=== PATIENT | female | born 1970 | race Caucasian/White ===

== ENCOUNTER 2016-07-03 11:28 | Emergency (ER) | payer OTHER ==
[~2016-07-03] VITALS: Ht 165.1 cm; Wt 77.0 kg
[~2016-07-03 11:28] MED LIST: CLON-352 PO; CLON0.1D TD; DOXE10 PO; GEMF600 PO; HYDR12.56 PO; IBUP800T23 PO; RANI150 PO; XANA2TAB2 PO
[2016-07-03 11:34] VITALS: BP 142/87; PULSE 133; RESP 17; TEMP 98.3; O2SAT 99
--- NOTE | 2016-07-03 11:39 | PD ---
Physical Exam Date Seen by Provider: Jul 03, 2016 Time Seen by Provider: 11:37 Narrative Patient here with Hx Anxiety, who is here with worries of having a seizure for the past few days. No Fever or other acute symptoms. V/S Stable Patient awaiting med bed placement. Data Data Last Documented VS Vital Signs Date Time Temp Pulse Resp B/P Pulse Ox O2 Delivery O2 Flow Rate FiO2 07/03/16 11:34 98.3 133 17 142/87 99 MDM Medical Record Reviewed: Yes Supervised Visit with SIERRA: Yes Condition: Stable Tanner Khan Jul 03, 2016 11:39
[2016-07-03] MEDS ORDERED: CLON0.1T PO (12:53)
[2016-07-03] MEDS ORDERED: XANA2TAB2 PO (12:53)
[2016-07-03] MEDS ORDERED: DOXE50CA3 PO ×2 (12:53)
[2016-07-03] MEDS ORDERED: TYLE325T PO (12:53)
[2016-07-03] MEDS ORDERED: LORazepam 1 MG TAB PO ONE (13:00)
--- NOTE | 2016-07-03 13:40 | PD ---
HPI Chief Complaint: Anxiety Time Seen by Provider: 12:29 Travel History International Travel<30 days: No Contact w/Intl Traveler<30days: No Traveled to known affect area: No History of Present Illness HPI Patient 46-year-old female presents emergency department for vague complaints of "feeling funny in her head like she's can have a seizure". She denies any pain. She states that she just feels like she is going to have a seizure soon. She does have a history of anxiety and admits that. She states she's also been having some lower extremity numbness and tingling and has a history of peripheral neuropathy but has not been able to take her gabapentin either. She has not followed up with a primary care physician in some time. She denies any chest pain shortness of breath abdominal pain nausea vomiting diarrhea. Denies any visual disturbances or funny smell consistent with auras. She states the symptoms been going on for some time. Gradually worsening. PFSH Past Medical History Anxiety: Yes (PANIC ATTACKS) Depression: Yes High Cholesterol: Yes Diminished Hearing: No Psychiatric: Yes (PTSD) Reproductive: Yes (ENDOMETRIOSIS, fibroid tumors) Immunizations Current: Yes Migraines: Yes Seizures: Yes Ulcer: Yes (STOMACH ULCERS) ?: Not LMP: LAST MONTH : 2 Para: 1 Miscarriage: 1 : 0 Ovarian Cysts: Yes Past Surgical History Abdominal Aneurysm Repair: No Gynecologic Surgery: Yes (EXPLORATORY LAPAROSCOPY) Social History Alcohol Use: Yes (occ) Tobacco Use: Yes (1 to 1 03/07 ppd) Substance Use: No Allergies-Medications (Allergen,Severity, Reaction): Coded Allergies: Codeine (Verified Allergy, Severe, Anaphylaxis, 07/03/16) Iodine (Verified Allergy, Severe, Anaphylaxis, 07/03/16) Seroquel (Verified Allergy, Severe, Anaphylaxis, 07/03/16) Tramadol (Verified Allergy, Severe, Anaphylaxis, 07/03/16) Uncoded Allergies: SEROQUEL (Allergy, Severe, THROAT CLOSES, 03/26/11) Reported Meds & Prescriptions Reported Meds & Active Scripts Active Reported Tylenol (Acetaminophen) 325 Mg Tab 650 Mg PO Q4H PRN Xanax (Alprazolam) 2 Mg Tab 2 Mg PO BID Clonidine (Clonidine HCl) 0.1 Mg Tab 0.1 Mg PO BID Doxepin (Doxepin HCl) 50 Mg Cap 100 Mg PO HS Doxepin (Doxepin HCl) 50 Mg Cap 50 Mg PO DAILY IN THE AM Review of Systems Except as stated in HPI: all other systems reviewed are Neg Physical Exam Narrative GENERAL: Well-developed well-nourished no apparent distress rapid speech. SKIN: Focused skin assessment warm/dry. HEAD: Atraumatic. Normocephalic. EYES: Pupils equal and round. No scleral icterus. No injection or drainage. ENT: No nasal bleeding or discharge. Mucous membranes pink and moist. NECK: Trachea midline. No JVD. CARDIOVASCULAR: Regular rate and rhythm. No murmur appreciated. RESPIRATORY: No accessory muscle use. Clear to auscultation. Breath sounds equal bilaterally. GASTROINTESTINAL: Abdomen soft, non-tender, nondistended. Hepatic and splenic margins not palpable. MUSCULOSKELETAL: No obvious deformities. No clubbing. No cyanosis. No edema. NEUROLOGICAL: Awake and alert. Cranial nerves II through XII are grossly intact and nonfocal, 5 out of 5 strength in all 4 extremity's, cerebellar testing normal, and relates even narrow based gait. PSYCHIATRIC: Appropriate mood and affect; insight and judgment normal. Data Data Last Documented VS Vital Signs Date Time Temp Pulse Resp B/P Pulse Ox O2 Delivery O2 Flow Rate FiO2 07/03/16 11:34 98.3 133 17 142/87 99 Orders Lorazepam (Ativan) (07/03/16 13:00) [facility] Medical Decision Making Medical Screen Exam Complete: Yes Emergency Medical Condition: Yes Differential Diagnosis Anxiety reaction, history of seizure disorder, noncompliance. Narrative Course Patient was counseled very closely recommend she needs to follow up with multiple spiders. She was given Ativan 1 mg by mouth in emerged Department she is not driving. She has no indication for emergent workup at this time. She is stable for discharge. Diagnosis Primary Impression: Anxiety state Referrals: Cedric Reza MD, Neil R. MD [facility] Disposition: 01 DISCHARGE HOME Condition: Stable Ramesh Haynes MD Jul 03, 2016 13:40
== END 2016-07-03 14:41 | disposition home or self-care (01) ==
LOC: NEPD 11:28
DX: F41.1 Generalized anxiety disorder (principal); E78.00 Pure hypercholesterolemia, unspecified; F43.10 Post-traumatic stress disorder, unspecified; F17.210 Nicotine dependence, cigarettes, uncomplicated
CPT/HCPCS: 99283

== ENCOUNTER 2016-07-06 01:42 | Inpatient (IN) | payer OTHER ==
[2016-07-06] VITALS (30 sets, daily range): BP systolic 86–145; BP diastolic 52–83; PULSE 54–89; RESP 12–18; TEMP 97.2–99.3; O2SAT 94–100
[~2016-07-06] VITALS: Ht 165.1 cm; Wt 71.6 kg
[~2016-07-06 01:42] MED LIST changes: -CLON-352 PO; -CLON0.1D TD; +CLON0.1T PO; -DOXE10 PO; +DOXE50CA3 PO; -GEMF600 PO; -HYDR12.56 PO; -IBUP800T23 PO; -RANI150 PO; +TYLE325T PO
[2016-07-06] MEDS ORDERED: SODIUM CHLOR 0.9% 1000 ML INJ 1,000 ML IV ONE ×2 (01:54→02:00)
[2016-07-06] MEDS ORDERED: NALOXONE HCL 2 MG/2 ML VIAL IVP ONE (02:00)
[2016-07-06] MEDS ORDERED: SODIUM CHLORIDE 0.9% FLUSH 10 ML FLUSH IVF PRN (02:00)
[2016-07-06] MEDS ORDERED: ACTIVATED CHARCOAL LIQUID 25 GM/120 ML BTL PO/NG ONE (02:00)
[2016-07-06] MEDS ORDERED: SODIUM BICARBONATE 8.4% INJ 50 MEQ/50 ML SYR IV PUSH ONE ×2 (02:00→02:45)
[2016-07-06 02:17] LABS: AUTOMATED NEUTROPHIL # 14.9 TH/MM3 (1.8-7.7); BASOPHIL # 0.1 TH/MM3 (0-0.2); BASOPHIL % 0.8 % (0.0-2.0); EOSINOPHIL # 0.1 TH/MM3 (0-0.4); EOSINOPHIL % 0.3 % (0.0-4.0); HEMATOCRIT 35.5 % (35.0-46.0); HEMO FLAGS DIFF FINAL; LYMPHOCYTE # 1.8 TH/MM3 (1.0-4.8); MEAN CELL VOLUME 95.4 FL (80.0-100.0); MEAN CORPUSCULAR HEMOGLOBIN 32.1 PG (27.0-34.0); MEAN CORPUSCULAR HGB CONC 33.7 % (32.0-36.0); MONO % 5.3 % (0.0-8.0); NEUT % 83.6 % (16.0-70.0); PLATELET COUNT 220 TH/MM3 (150-450); RED BLOOD COUNT 3.72 MIL/MM3 (4.00-5.30); RED CELL DISTRIBUTION WIDTH 13.9 % (11.6-17.2); WHITE BLOOD COUNT 17.8 TH/MM3 (4.0-11.0)
[2016-07-06 02:19] LABS: BLOOD, URINE LARGE (NEG); GLUCOSE,URINE 1000 mg/dL (NEG); HYALINE CAST, URINE 4 /lpf (RARE); KETONE, URINE 10 mg/dL (NEG); MUCUS URINE FEW /lpf (OCC); NITRITE,URINE NEG (NEG); PH, URINE 5.5 (5.0-8.5); RENAL EPITHELIAL CELLS <1 /hpf; SQUAMOUS EPITHELIAL CELL URINE 3 /hpf (0-5); URINE COLOR YELLOW (YELLW/STRAW)
[2016-07-06 02:21] LABS: COMMENT (UR) CULT NOT INDICATED; CULTURE IF INDICATED CULT NOT INDICATED
[2016-07-06 02:23] LABS: AMPHETAMINE, URINE NEG (NEG); BARBITURATES, URINE NEG (NEG); COCAINE, URINE NEG (NEG)
[2016-07-06 02:24] LABS: APTT (PATIENT) 24.5 SEC (24.3-30.1); INTERNATIONAL NORMALIZED RATIO 1.1 RATIO
[2016-07-06 02:32] LABS: ANION GAP 13 MEQ/L (5-15); AST (GOT) 10 U/L (15-37); BICARBONATE 18.7 MEQ/L (21.0-32.0); BLOOD UREA NITROGEN 21 MG/DL (7-18); CHLORIDE 108 MEQ/L (98-107); GLOMERULAR FILTRATION RATE 49 ML/MIN (>89); MAGNESIUM 1.8 MG/DL (1.5-2.5); POTASSIUM 3.3 MEQ/L (3.5-5.1); SODIUM (NA) 140 MEQ/L (136-145)
[2016-07-06 02:36] LABS: ACETAMINOPHEN LESS THAN 2.0 MCG/ML (10.0-30.0); ALKALINE PHOSPHATASE 49 U/L (45-117); ALT (GPT) 19 U/L (10-53); CREATINE KINASE 235 U/L (26-192); TOTAL BILIRUBIN ADULT 0.3 MG/DL (0.2-1.0)
--- NOTE | 2016-07-06 02:37 | PD ---
HPI Chief Complaint: OD/ Ingestion Time Seen by Provider: 01:51 Travel History International Travel<30 days: No Contact w/Intl Traveler<30days: No Traveled to known affect area: No History of Present Illness HPI The patient is a 46 year old female who presents to the [facility] emergency department with a history of being found by her mother unresponsive prior to arrival. Mom immediately became concerned that she had overdosed as she has a history of depression and has overdosed in the past. Mom found empty bottles of doxepin, Xanax, and a clonidine. Unfortunately ambulance services did not bring the bottles and for me to be able to identify when the prescription was filled. On their arrival, the patient was noted to have a GCS of 3 although her vital signs were unremarkable. They reported that she was maintaining her O2 saturations, however in spite of giving Narcan IV she continued to have a GCS of 3. They prepared to intubate the patient. The patient reportedly had 2-10 second generalized chronic tonic seizures. The patient had clenching of her mouth. The patient was therefore provided etomidate 20 mg IV, Ativan 4 mg IV and then intubated with a size 7 cuffed endotracheal tube. The patient arrives intubated with a CO2 on capnography of 35. She had equal breath sounds noted on exam. The patient was placed on the cotton sampler. The rest of the patient's history is obtained from reviewing the electronic medical record. [facility] Past Medical History Narrative Medical The patient's past medical history is significant for according to the electronic medical record, panic attacks, anxiety disorder, depression, hyperlipidemia, posttraumatic stress disorder, endometriosis, history of fibroid tumors of the uterus, history of migraine headaches, history of peptic ulcer disease, history of seizure disorder. The record, the patient also has a history of prior suicide attempts. Medical History: Unable to Obtain Anxiety: Yes (PANIC ATTACKS) Depression: Yes High Cholesterol: Yes Diminished Hearing: No Psychiatric: Yes (PTSD) Reproductive: Yes (ENDOMETRIOSIS, fibroid tumors) Immunizations Current: Yes Migraines: Yes Seizures: Yes Ulcer: Yes (STOMACH ULCERS) Tetanus Vaccination: Unknown ?: Not : 2 Para: 1 Miscarriage: 1 : 0 Ovarian Cysts: Yes Past Surgical History Narrative Surgical The patient's past surgical history is significant for an exploratory laparoscopy for pelvic pain. Surgical History: Unable to Obtain Abdominal Aneurysm Repair: No Gynecologic Surgery: Yes (EXPLORATORY LAPAROSCOPY) Social History Alcohol Use: Yes (occ) Tobacco Use: Yes (1 to 1 03/07 ppd) Substance Use: No Allergies-Medications (Allergen,Severity, Reaction): Coded Allergies: Codeine (Verified Allergy, Severe, Anaphylaxis, 07/06/16) Iodine (Verified Allergy, Severe, Anaphylaxis, 07/06/16) Seroquel (Verified Allergy, Severe, Anaphylaxis, 07/06/16) Tramadol (Verified Allergy, Severe, Anaphylaxis, 07/06/16) Uncoded Allergies: SEROQUEL (Allergy, Severe, THROAT CLOSES, 03/26/11) Reported Meds & Prescriptions Reported Meds & Active Scripts Active Reported Xanax (Alprazolam) 2 Mg Tab 2 Mg PO BID Clonidine (Clonidine HCl) 0.1 Mg Tab 0.1 Mg PO BID Doxepin (Doxepin HCl) 50 Mg Cap 100 Mg PO HS Doxepin (Doxepin HCl) 50 Mg Cap 50 Mg PO DAILY IN THE AM Review of Systems ROS Limitations: Intubated Musculoskeletal: No: Pain Physical Exam Narrative General: The patient is a well-developed well-nourished female, on arrival noted to have a GCS of 3 with no response to any type of stimulation. Initial blood pressure was a systolic in the 70s. Head and Neck exam: Head is normocephalic atraumatic. Eyes: Extra ocular motion testing is unable to be accomplished in this patient who does not follow commands. Pupils are equal round and reactive to light. Nose: Midline septum with pink mucous membranes Mouth: Dentition unremarkable. Moist mucus membranes. Posterior oropharynx is not erythematous. No tonsillar hypertrophy. Uvula midline. Airway patent. Neck: No palpable lymphadenopathy. No nuchal rigidity. No thyromegaly. Cardiovascular: Regular rate and rhythm without murmurs, gallops, or rubs. Lungs: Clear to auscultation bilaterally. No wheezes, rhonchi, or rales. Abdomen: Soft, without tenderness to palpation in all 4 quadrants of the abdomen. No guarding, rebound, or rigidity. Normal bowel sounds are audible. Extremities: No clubbing, cyanosis, or edema. 2+ pulses in all 4 extremities. Back: No erythema or ecchymosis noted. Neurologic Exam: The patient arrives with a GCS of 3 without any motor activity, eye activity, or verbal response. Skin Exam: No rash noted. Intact skin that is warm and dry. Data Data Last Documented VS Vital Signs Date Time Temp Pulse Resp B/P Pulse Ox O2 Delivery O2 Flow Rate FiO2 07/06/16 02:44 99 40 07/06/16 02:10 81 16 86/52 Auto-Vent 07/06/16 02:10 99.3 Orders Electrocardiogram (07/06/16 01:54) Complete Blood Count With Diff (07/06/16 01:54) Comprehensive Metabolic Panel (07/06/16 01:54) Creatine Kinase (Cpk) (07/06/16 01:54) Ckmb (Isoenzyme) Profile (07/06/16 01:54) Troponin I (07/06/16:54) B-Type Natriuretic Peptide (07/06/16 01:54) Prothrombin Time / Inr (Pt) (07/06/16 01:54) Act Partial Throm Time (Ptt) (07/06/16 01:54) Arterial Blood Gas (Abg) (07/06/16 01:54) Lipase (07/06/16 01:54) Urinalysis - C+S If Indicated (07/06/16 01:54) Magnesium (Mg) (07/06/16 01:54) Osmolality, Urine (07/06/16 01:54) Osmolality,Serum (07/06/16 01:54) Chest, Single Ap (07/06/16 01:54) Ct Brain W/O Iv Contrast(Rout) (07/06/16 01:54) Iv Access Insert/Monitor (07/06/16 01:54) Ecg Monitoring (07/06/16 01:54) Oximetry (07/06/16 01:54) Urinary Catheter Insert/Apply (07/06/16 01:54) Ed Urine Pregnancytest Poc (07/06/16 01:54) Drug Screen, Random Urine (07/06/16 01:54) Alcohol (Ethanol) (07/06/16 01:54) Salicylates (Aspirin) (07/06/16 01:54) Tylenol (Acetaminophen) (07/06/16 01:54) Blood Glucose (07/06/16 01:54) Candi-Gastric Tube Insert/Mon (07/06/16 01:54) Charcoal Activated Liq (Actidose-Aqua Li (07/06/16 02:00) Naloxone Inj (Narcan Inj) (07/06/16 02:00) Sodium Chloride 0.9% Flush (Ns Flush) (07/06/16 02:00) Sodium Chlor 0.9% 1000 Ml Inj (Ns 1000 M (07/06/16 01:54) Call Poison Control (07/06/16 01:54) Sodium Chlor 0.9% 1000 Ml Inj (Ns 1000 M (07/06/16 02:00) Sodium Bicarbonate 8.4% Inj (Sodium Bica (07/06/16 02:00) Sodium Bicarbonate 8.4% Inj (Sodium Bica (07/06/16 02:45) Dextrose 5% In Wate... W/Sodium Bicarbon (07/06/16 02:45) CKMB (07/06/16 02:05) CKMB% (07/06/16 02:05) Admit Order (Ed Use Only) (07/06/16 03:07) Labs Laboratory Tests Test 07/06/16 07/06/16 02:05 02:28 White Blood Count 17.8 TH/MM3 Red Blood Count 3.72 MIL/MM3 Hemoglobin 11.9 GM/DL Hematocrit 35.5 % Mean Corpuscular Volume 95.4 FL Mean Corpuscular Hemoglobin 32.1 PG Mean Corpuscular Hemoglobin 33.7 % Concent Red Cell Distribution Width 13.9 % Platelet Count 220 TH/MM3 Mean Platelet Volume 10.3 FL Neutrophils (%) (Auto) 83.6 % Lymphocytes (%) (Auto) 10.0 % Monocytes (%) (Auto) 5.3 % Eosinophils (%) (Auto) 0.3 % Basophils (%) (Auto) 0.8 % Neutrophils # (Auto) 14.9 TH/MM3 Lymphocytes # (Auto) 1.8 TH/MM3 Monocytes # (Auto) 0.9 TH/MM3 Eosinophils # (Auto) 0.1 TH/MM3 Basophils # (Auto) 0.1 TH/MM3 CBC Comment DIFF FINAL Differential Comment Prothrombin Time 12.0 SEC Prothromb Time International 1.1 RATIO Ratio Activated Partial 24.5 SEC Thromboplast Time Urine Color YELLOW Urine Turbidity HAZY Urine pH 5.5 Urine Specific [place] 1.034 Urine Protein 100 mg/dL Urine Glucose (UA) 1000 mg/dL Urine Ketones 10 mg/dL Urine Occult Blood LARGE Urine Nitrite NEG Urine Bilirubin NEG Urine Urobilinogen 2.0 MG/DL Urine Leukocyte Esterase NEG Urine RBC 3 /hpf Urine WBC 5 /hpf Urine Squamous Epithelial 3 /hpf Cells Urine Renal Epithelial Cells <1 /hpf Urine Amorphous Sediment RARE Urine Hyaline Casts 4 /lpf Urine Mucus FEW /lpf Microscopic Urinalysis Comment CULT NOT INDICATED Urine Osmolality 1009 MOSM/KG Sodium Level 140 MEQ/L Potassium Level 3.3 MEQ/L Chloride Level 108 MEQ/L Carbon Dioxide Level 18.7 MEQ/L Anion Gap 13 MEQ/L Blood Urea Nitrogen 21 MG/DL Creatinine 1.18 MG/DL Estimat Glomerular Filtration 49 ML/MIN Rate Random Glucose 233 MG/DL Serum Osmolality 302 MOSM/KG Calcium Level 7.9 MG/DL Magnesium Level 1.8 MG/DL Total Bilirubin 0.3 MG/DL Aspartate Amino Transf 10 U/L (AST/SGOT) Alanine Aminotransferase 19 U/L (ALT/SGPT) Alkaline Phosphatase 49 U/L Total Creatine Kinase 235 U/L Creatine Kinase MB 4.1 NG/ML Creatine Kinase MB % 1.7 % Troponin I LESS THAN 0.02 NG/ML B-Type Natriuretic Peptide 6 PG/ML Total Protein 6.3 GM/DL Albumin 3.6 GM/DL Lipase 65 U/L Salicylates Level 5.3 MG/DL Urine Opiates Screen NEG Acetaminophen Level LESS THAN 2.0 MCG/ML Urine Barbiturates Screen NEG Urine Amphetamines Screen NEG Urine Benzodiazepines Screen POS Urine Cocaine Screen NEG Urine Cannabinoids Screen NEG Ethyl Alcohol Level LESS THAN 3 MG/DL Blood Gas Puncture Site RT RADIAL Blood Gas Patient Temperature 98.6 Blood Gas HCO3 20 mmol/L Blood Gas Base Excess -3.8 mmol/L Blood Gas Oxygen Saturation 96 % Arterial Blood pH 7.42 Arterial Blood Partial 32 mmHg Pressure CO2 Arterial Blood Partial 277 mmHG Pressure O2 Arterial Blood Oxygen Content 14.7 Vol % Arterial Blood 3.8 % Carboxyhemoglobin Arterial Blood Methemoglobin 0.4 % Blood Gas Hemoglobin 10.4 G/DL Oxygen Delivery Device VENTILATOR Blood Gas Ventilator Setting [id number]/500/[id number] Blood Gas Inspired Oxygen 100 % MDM Medical Decision Making Medical Screen Exam Complete: Yes Emergency Medical Condition: Yes Medical Record Reviewed: Yes Interpretation(s) Last Impressions Chest X-Ray 07/06/16 0154 Signed Impressions: Service Date/Time: Wednesday, July 06, 2016 02:27 - CONCLUSION: 1. Endotracheal tube in the left mainstem bronchus. This should be retracted 4 cm. Cedric Aguilera MD Differential Diagnosis Intentional overdose, versus accidental overdose, versus intracranial abnormality Narrative Course During the course of the patients emergency department visit, the patients history, examination, and differential diagnosis were reviewed with the patient. The patient had 2 large-bore IVs place and bilateral upper extremities. The patient was started on normal saline 2 L wide open. The patient had an OG tube placed to gravity. The patient was placed on the ventilator. An ABG will be collected. The patient had a Larson catheter placed to gravity. The patient was initially provided charcoal 50 g by OG 1. The patient was given Narcan 2 mg IV. The patient was given 1 amp of bicarbonate after her QRS was noted to be 118 ms with a suspected tricyclic acid antidepressant overdose. A call was placed out to poison control who recommended an additional amp of bicarbonate, and a bicarbonate drip be started. The patient's EKG shows a sinus rhythm with a rate of 75, incomplete right bundle branch block, QRS duration 118 ms, QTC 459 ms. The patient's ABG done initially on settings of a respiratory rate of 16, tidal volume 500, PEEP of 5, 100% FiO2 showed a pH of 7.418, PCO2 31.5, PO2 77, bicarbonate 20, base excess -3.8. The patient's FiO2 will be decreased to 40%. The patient will have a repeat ABG done at 3:45 to reassess her pH in order to maintain of between 7.5 and 7.55. The patient's blood pressure quickly improved with fluid resuscitation. The patient's blood pressure was maintained in the 90s to 100s, systolic. The patients laboratory studies were reviewed and remarkable for a white count of 17.8, hemoglobin 11.9, platelets 220 with 83.6 neutrophils, CMP is remarkable for potassium of 3.3, chloride 108, CO2 18.7, BUN 21, creatinine 1.18 , glucose 233, calcium 7.9, CPK 235, MB percent 1.7, troponin I less than 0.06, BNP 6, lipase 65, PT 12, INR 1.1, PTT 24.5, urinalysis shows 2000 glucose large occult blood otherwise unremarkable, urine drug screen is positive for benzodiazepine, alcohol less than 3, acetaminophen less than 2, salicylate 5.3. The patient's basic metabolic profile and aspirin level was repeated at approximately 4:15 AM. Repeat aspirin level was 3.9. The repeat ABG after starting the patient on a bicarbonate drip shows a pH of 7.4, PCO2 34, PO2 141, bicarbonate 20, base excess -3.6. The patient's bicarbonate drip was increased to 200 mL per hour. Radiology studies were reviewed and remarkable for a chest x-ray that shows the endotracheal tube in the left main stem bronchus, recommending withdrawal the tube approximate 4 cm. This was done by respiratory therapy. The patient's case was discussed with the medical referral coordinator who did agree to admit the patient for further evaluation and treatment at this time. The patients results were discussed with the patient, including the plan of care. I explained that further testing and/ or monitoring is indicated based on the patients history, examination, and/ or laboratory findings. Therefore, I recommended admission for additional evaluation. The patient expressed understanding and was agreeable with this plan. The patient was admitted to the hospital in critical condition and sent to a bed under the care of the medical referral coordinator. Critical Care Narrative Aggregate critical care time was 45 minutes. Time to perform other separately billable procedures was not included in the critical care time. My time did not include minutes spent treating any other patients simultaneously or on activities that did not directly contribute to the patient's treatment. The services I provided to this patient were to treat and/or prevent clinically significant deterioration that could result in: Cardiac arrhythmia, cardiovascular collapse, versus fluid overload I provided critical care services requiring my management, as noted below: Chart data review, documentation time, medication orders and management, vital sign assessments/reviewing monitor data, ordering and reviewing lab tests, ordering and interpreting/reviewing x-rays and diagnostic studies, care of the patient and discussion of the patient with the admitting physicians. Physician Communication Physician Communication The patient's case was discussed with Dr. Perez who did agree to admit the patient for further evaluation and treatment at this time Diagnosis Primary Impression: Intentional overdose of drug in tablet form Admitting Information Admitting Physician Requests: Katherine Gaines MD July 06, 2016 02:37
[2016-07-06 02:39] LABS: BLOOD GAS BASE EXCESS -3.8 mmol/L (-2-2); BLOOD GAS CARBOXYHEMOGLOBIN 3.8 % (0-4); BLOOD GAS HCO3 20 mmol/L (22-26); BLOOD GAS METHEMOGLOBIN 0.4 % (0-2); BLOOD GAS O2 HGB SATURATION 96 % (90-100); BLOOD GAS OXYGEN CONTENT 14.7 Vol % (12.0-20.0); BLOOD GAS PCO2 32 mmHg (38-42); BLOOD GAS PO2 277 mmHG (61-120); BLOOD GAS TOTAL HGB 10.4 G/DL (12.0-16.0); CRITICAL VALUE NO; OXYGEN DEVICE VENTILATOR; TEMP CORR TO 98.6
[2016-07-06 02:40] LABS: DRAW SITE RT RADIAL; FIO2 100 %; NUMBER OF ARTERIAL PUNCTURES 1; STAT YES; ULNAR PULSE PRESENT; VENT SETTINGS VAC16/500/PEEP5
[2016-07-06 02:53] LABS: CKMB 4.1 NG/ML (0.5-3.6)
--- NOTE | 2016-07-06 03:02 | RADRPT ---
EXAM DATE/TIME: 07/06/2016 02:27 [place] COMPARISON: No previous studies available for comparison. INDICATIONS : Post endotracheal tube placement. MEDICAL HISTORY : Non-responsive SURGICAL HISTORY : Non-responsive ENCOUNTER: Initial ACUITY: 1 day PAIN SCORE: Non-responsive. LOCATION: Bilateral chest FINDINGS: The cardiac silhouette is enlarged in transverse diameter. There is elevation of the right hemidiaphr agm. Endotracheal tube is in place with its tip in the left mainstem bronchus and should be retracted 4 cm. A nasogastric tube is in place with its tip in the stomach. The lungs are free of acute parenc hymal opacity. No effusions are identified. CONCLUSION: 1. Endotracheal tube in the left mainstem bronchus. This should be retracted 4 cm. Cedric Aguilera MD on July 06, 2016 at 3:00 Board Certified Radiologist. This report was verified electronically.
[2016-07-06] MEDS: SODIUM BICARBONATE 8.4% INJ 150 MEQ in DEXTROSE 5% IN WATE 1000ML INJ 1,000 ML IV SCH ×6 (03:03→17:12)
[2016-07-06 03:46] LABS: BLOOD GAS BASE EXCESS -3.6 mmol/L (-2-2); BLOOD GAS CARBOXYHEMOGLOBIN 3.1 % (0-4); BLOOD GAS HCO3 20 mmol/L (22-26); BLOOD GAS METHEMOGLOBIN 0.4 % (0-2); BLOOD GAS O2 HGB SATURATION 96 % (90-100); BLOOD GAS OXYGEN CONTENT 14.6 Vol % (12.0-20.0); BLOOD GAS PCO2 34 mmHg (38-42); BLOOD GAS PO2 141 mmHG (61-120); BLOOD GAS TOTAL HGB 10.6 G/DL (12.0-16.0); CRITICAL VALUE NO; DRAW SITE LT BRACHIAL; FIO2 40 %; NUMBER OF ARTERIAL PUNCTURES 1; OXYGEN DEVICE VENTILATOR; STAT YES; TEMP CORR TO 98.6; ULNAR PULSE PRESENT; VENT SETTINGS VAC16/500/PEEP5
[2016-07-06] MEDS ORDERED: DOCUSATE SODIUM 100 MG/10 ML UDC G-TUBE SCH (04:45)
[2016-07-06] MEDS ORDERED: ONDANSETRON HCL 4 MG/2 ML VIAL IV PRN (04:45)
[2016-07-06] MEDS ORDERED: RESP: ALBUTEROL 2.5 MG/IPRATROPIUM 0.5 MG NEB (PRN) INH (04:45)
[2016-07-06] MEDS ORDERED: MISCELLANEOUS NURSING INFORMATION XX SCH (04:45)
[2016-07-06] MEDS ORDERED: CHLORHEXIDINE GLUCONATE 2 % 1 PACK (2 CLOTHS) TOP PRN (04:45)
[2016-07-06] MEDS ORDERED: METOCLOPRAMIDE HCL 10 MG/2 ML VIAL IV PRN (04:45)
[2016-07-06 04:56] LABS: BICARBONATE 23.9 MEQ/L (21.0-32.0); POTASSIUM 3.1 MEQ/L (3.5-5.1)
[2016-07-06 05:16] LABS: BLOOD GAS BASE EXCESS -1.4 mmol/L (-2-2); BLOOD GAS CARBOXYHEMOGLOBIN 2.7 % (0-4); BLOOD GAS HCO3 22 mmol/L (22-26); BLOOD GAS METHEMOGLOBIN 0.5 % (0-2); BLOOD GAS O2 HGB SATURATION 88 % (90-100); BLOOD GAS OXYGEN CONTENT 13.3 Vol % (12.0-20.0); BLOOD GAS PCO2 32 mmHg (38-42); BLOOD GAS PO2 54 mmHG (61-120); BLOOD GAS TOTAL HGB 10.7 G/DL (12.0-16.0); TEMP CORR TO 98.6
[2016-07-06 05:17] LABS: CRITICAL VALUE YES; DRAW SITE LT BRACHIAL; FIO2 40 %; NUMBER OF ARTERIAL PUNCTURES 1; OXYGEN DEVICE VENTILATOR; STAT YES; ULNAR PULSE PRESENT; VENT SETTINGS VAC16/500/PEEP5
[2016-07-06 05:19] LABS: CALCIUM-PROTEIN CORRECTED 7.9 MG/DL (8.5-10.1)
[2016-07-06] MEDS: DOCUSATE SODIUM 100 MG CAP G-TUBE SCH ×2 (05:56→17:12)
--- NOTE | 2016-07-06 05:59 | HHI.HP ---
HPI Service Critical Care Medicine Primary Care Physician No Primary Care Physician Admission Diagnosis Multidrug overdose Diagnosis: Travel History International Travel<30 Days: No Contact w/Intl Traveler <30 Da: No Traveled to Known Affected Are: No History of Present Illness 46 year old female was found by her mother unresponsive. Mom was concerned that she had overdosed as she has a history of depression and has overdosed in the past. Mom found empty bottles of doxepin, Xanax, and a clonidine. On the arrival, the patient was noted to be a GCS of 3 although her vital signs were unremarkable. The patient reportedly had 2-10 second generalized chronic tonic seizures. The patient had clenching of her mouth and was intubated for airway protection. Review of Systems ROS Unable to obtain patient is sedated and intubated Past Family Social History Allergies: Coded Allergies: Codeine (Verified Allergy, Severe, Anaphylaxis, 07/06/16) Iodine (Verified Allergy, Severe, Anaphylaxis, 07/06/16) Seroquel (Verified Allergy, Severe, Anaphylaxis, 07/06/16) Tramadol (Verified Allergy, Severe, Anaphylaxis, 07/06/16) Uncoded Allergies: SEROQUEL (Allergy, Severe, THROAT CLOSES, 03/26/11) Past Medical History panic attacks, anxiety disorder, depression, hyperlipidemia, posttraumatic stress disorder, endometriosis, fibroid tumors of the uterus, migraine headaches, peptic ulcer disease, seizure disorde prior suicide attempts. Reported Medications Reported Meds & Active Scripts Active Reported Xanax (Alprazolam) 2 Mg Tab 2 Mg PO BID Clonidine (Clonidine HCl) 0.1 Mg Tab 0.1 Mg PO BID Doxepin (Doxepin HCl) 50 Mg Cap 100 Mg PO HS Doxepin (Doxepin HCl) 50 Mg Cap 50 Mg PO DAILY IN THE AM Active Ordered Medications Current Medications Medications (Trade) Dose Ordered Sig/Srinath Route PRN Reason Start Time Stop Time Status Last Admin Dose Admin Sodium Bicarbonate/ Dextrose (Sodium Bicarbonate 8.4% Inj/D5W 1000 ml Inj) 1,150 ml @ 200 mls/hr Q5H45M IV 07/06/16 02:45 07/06/16 03:03 Sodium Chloride (NS Flush) 2 ml UNSCH PRN .XX FLUSH AFTER USING IV ACCESS 07/06/16 04:45 Sodium Chloride (NS Flush) 2 ml BID .XX 07/06/16 09:00 Famotidine (Pepcid Inj) 20 mg Q12HR IV PUSH 07/06/16 09:00 Artificial Tears (Tears Naturale Opth Soln) 1 drop TID EACH EYE 07/06/16 09:00 Ondansetron HCl (Zofran Inj) 4 mg Q6H PRN IV NAUSEA OR VOMITING 07/06/16 04:45 Metoclopramide HCl (Reglan Inj) 10 mg Q6H PRN IV NAUSEA OR VOMITING 07/06/16 04:45 Miscellaneous Information 1 Q361D XX 07/06/16 04:45 Chlorhexidine Gluconate (Chlorhexidine 2% Cloth) 3 pack Taper DAILY@04 TOP 07/07/16 04:00 07/03/17 03:59 Chlorhexidine Gluconate (Chlorhexidine 2% Cloth) 3 pack UNSCH PRN TOP HYGIENIC CARE 07/06/16 04:45 Docusate Sodium (Colace) 100 mg Q12H G-TUBE 07/06/16 06:00 Family History Unable to obtain Social History Unable to obtain Physical Exam Vital Signs Vital Signs Date Time Temp Pulse Resp B/P Pulse Ox O2 Delivery O2 Flow Rate FiO2 07/06/16 04:28 98.2 64 16 99/67 100 Auto-Vent 40 07/06/16 03:25 98.2 64 16 104/70 100 Auto-Vent 40 07/06/16 03:10 99 40 07/06/16 02:44 99 40 07/06/16 02:26 100 07/06/16 02:10 81 16 86/52 100 Auto-Vent 100 07/06/16 02:10 99.3 71 16 92/57 100 Auto-Vent 100 07/06/16 02:10 84 16 98 Auto-Vent 100 07/06/16 01:49 97.2 89 16 91/56 94 07/06/16 01:40 96 100 07/06/16 01:40 96 100 Physical Exam GENERAL: Well-nourished, well-developed patient. Sedated and intubated SKIN: Warm and dry. HEAD: Normocephalic. EYES: No scleral icterus. No injection or drainage. NECK: Supple, trachea midline. No JVD or lymphadenopathy. CARDIOVASCULAR: Regular rate and rhythm without murmurs, gallops, or rubs. RESPIRATORY: Breath sounds equal bilaterally. No accessory muscle use. GASTROINTESTINAL: Abdomen soft, non-tender, nondistended. MUSCULOSKELETAL: No cyanosis, or edema. BACK: Nontender without obvious deformity. No CVA tenderness. EXTREMITIES: No clubbing cyanosis or edema Laboratory Laboratory Tests Test 07/06/16 07/06/16 07/06/16 07/06/16 02:05 02:28 03:35 04:25 White Blood Count 17.8 Red Blood Count 3.72 Hemoglobin 11.9 Hematocrit 35.5 Mean Corpuscular Volume 95.4 Mean Corpuscular Hemoglobin 32.1 Mean Corpuscular Hemoglobin 33.7 Concent Red Cell Distribution Width 13.9 Platelet Count 220 Mean Platelet Volume 10.3 Neutrophils (%) (Auto) 83.6 Lymphocytes (%) (Auto) 10.0 Monocytes (%) (Auto) 5.3 Eosinophils (%) (Auto) 0.3 Basophils (%) (Auto) 0.8 Neutrophils # (Auto) 14.9 Lymphocytes # (Auto) 1.8 Monocytes # (Auto) 0.9 Eosinophils # (Auto) 0.1 Basophils # (Auto) 0.1 CBC Comment DIFF FINAL Differential Comment Prothrombin Time 12.0 Prothromb Time International 1.1 Ratio Activated Partial 24.5 Thromboplast Time Urine Color YELLOW Urine Turbidity HAZY Urine pH 5.5 Urine Specific [place] 1.034 Urine Protein 100 Urine Glucose (UA) 1000 Urine Ketones 10 Urine Occult Blood LARGE Urine Nitrite NEG Urine Bilirubin NEG Urine Urobilinogen 2.0 Urine Leukocyte Esterase NEG Urine RBC 3 Urine WBC 5 Urine Squamous Epithelial 3 Cells Urine Renal Epithelial Cells <1 Urine Amorphous Sediment RARE Urine Hyaline Casts 4 Urine Mucus FEW Microscopic Urinalysis Comment CULT NOT INDICATED Urine Osmolality 1009 Sodium Level 140 142 Potassium Level 3.3 3.1 Chloride Level 108 109 Carbon Dioxide Level 18.7 23.9 Anion Gap 13 9 Blood Urea Nitrogen 21 17 Creatinine 1.18 1.02 Estimat Glomerular Filtration 49 58 Rate Random Glucose 233 258 Serum Osmolality 302 Calcium Level 7.9 7.1 Magnesium Level 1.8 Total Bilirubin 0.3 Aspartate Amino Transf 10 (AST/SGOT) Alanine Aminotransferase 19 (ALT/SGPT) Alkaline Phosphatase 49 Total Creatine Kinase 235 Creatine Kinase MB 4.1 Creatine Kinase MB % 1.7 Troponin I LESS THAN 0.02 B-Type Natriuretic Peptide 6 Total Protein 6.3 5.6 Albumin 3.6 Lipase 65 Salicylates Level 5.3 3.9 Urine Opiates Screen NEG Acetaminophen Level LESS THAN 2.0 Urine Barbiturates Screen NEG Urine Amphetamines Screen NEG Urine Benzodiazepines Screen POS Urine Cocaine Screen NEG Urine Cannabinoids Screen NEG Ethyl Alcohol Level LESS THAN 3 Blood Gas Puncture Site RT RADIAL LT BRACHIAL Blood Gas Patient Temperature 98.6 98.6 Blood Gas HCO3 20 20 Blood Gas Base Excess -3.8 -3.6 Blood Gas Oxygen Saturation 96 96 Arterial Blood pH 7.42 7.40 Arterial Blood Partial 32 34 Pressure CO2 Arterial Blood Partial 277 141 Pressure O2 Arterial Blood Oxygen Content 14.7 14.6 Arterial Blood 3.8 3.1 Carboxyhemoglobin Arterial Blood Methemoglobin 0.4 0.4 Blood Gas Hemoglobin 10.4 10.6 Oxygen Delivery Device VENTILATOR VENTILATOR Blood Gas Ventilator Setting VAC16/500/PEEP5 VAC16/500/PEEP5 Blood Gas Inspired Oxygen 100 40 Protein Corrected Calcium 7.9 Test 07/06/16 05:02 Blood Gas Puncture Site LT BRACHIAL Blood Gas Patient Temperature 98.6 Blood Gas HCO3 22 Blood Gas Base Excess -1.4 Blood Gas Oxygen Saturation 88 Arterial Blood pH 7.45 Arterial Blood Partial 32 Pressure CO2 Arterial Blood Partial 54 Pressure O2 Arterial Blood Oxygen Content 13.3 Arterial Blood 2.7 Carboxyhemoglobin Arterial Blood Methemoglobin 0.5 Blood Gas Hemoglobin 10.7 Oxygen Delivery Device VENTILATOR Blood Gas Ventilator Setting VAC16/500/PEEP5 Blood Gas Inspired Oxygen 40 Result Diagram: 07/06/16 0205 07/06/16 0425 Imaging Last 24 hours Impressions Chest X-Ray 07/06/16 0154 Signed Impressions: Service Date/Time: Wednesday, July 06, 2016 02:27 - CONCLUSION: 1. Endotracheal tube in the left mainstem bronchus. This should be retracted 4 cm. Cedric Aguilera MD Assessment and Plan Assessment and Plan Respiratory failure - Intubated for airway protection - Continue mechanical ventilation until neurologically improved Altered mental status - Due to overdose - Monitor neuro checks per unit protocol Overdose - Poison Center notified by ED - Sodium bicarbonate drip - Serial labs - Telemetry Depression - Psych evaluation when extubated DVT GI prophylaxis - Teds SCDs - Pepcid Critical Care: The total critical care time was 35 minutes. Time to perform other separately billable procedures was not included in the critical care time. Joaquim Perez MD July 06, 2016 05:58
[2016-07-06] MEDS ORDERED: MAGNESIUM SULFATE INJ 4 GM in SODIUM CHLORIDE 0.9% INJ 92 ML IV PRN (06:15)
[2016-07-06] MEDS ORDERED: POTASSIUM PHOSPHATE MONOBASIC 500 MG TAB PO PRN (06:15)
[2016-07-06] MEDS ORDERED: POTASSIUM CHLORIDE 25 MEQ EFFERVESCENT TAB PO PRN (06:15)
[2016-07-06] MEDS ORDERED: POTASSIUM CHLOR 40 MEQ PREMIX 100 ML IV PRN ×2 (06:15)
[2016-07-06] MEDS ORDERED: POTASSIUM PHOSPHATE MONOBASIC 500 MG TAB PO/TUBE PRN (06:15)
[2016-07-06] MEDS ORDERED: MAGNESIUM SULFATE INJ 2 GM in SODIUM CHLORIDE 0.9% INJ 96 ML IV PRN (06:15)
[2016-07-06] MEDS ORDERED: SODIUM PHOSPHATE INJ 30 MMOL in SODIUM CHLOR 0.9% 250 ML INJ 240 ML IV PRN (06:15)
[2016-07-06] MEDS ORDERED: MAGNESIUM OXIDE 400 MG TAB PO PRN (06:15)
--- NOTE | 2016-07-06 07:04 | RADRPT ---
EXAM DATE/TIME: 07/06/2016 06:28 [facility] COMPARISON: No previous studies available for comparison. INDICATIONS : Found unresponsive. RADIATION DOSE: 40.89 CTDIvol (mGy) MEDICAL HISTORY : Non-responsive. SURGICAL HISTORY : Non-responsive. ENCOUNTER: Initial ACUITY: 1 day PAIN SCALE: Non-responsive LOCATION: cranial TECHNIQUE: Multiple contiguous axial images were obtained of the head. Using automated exposure control and adj ustment of the mA and/or kV according to patient size, radiation dose was kept as low as reasonably a chievable to obtain optimal diagnostic quality images. FINDINGS: CEREBRUM: The ventricles are normal for age. No evidence of midline shift, mass lesion, hemorrhage or acute in farction. No extra-axial fluid collections are seen. POSTERIOR FOSSA: The cerebellum and brainstem are intact. The 4th ventricle is midline. The cerebellopontine angle i s unremarkable. EXTRACRANIAL: The visualized portion of the orbits is intact. SKULL: The calvaria is intact. No evidence of skull fracture. CONCLUSION: 1. No evidence of acute intracranial pathology. No masses are identified. Cedric Aguilera MD on July 06, 2016 at 7:01 Board Certified Radiologist. This report was verified electronically.
[2016-07-06 07:40] LABS: BLOOD GAS BASE EXCESS 1.7 mmol/L (-2-2); BLOOD GAS CARBOXYHEMOGLOBIN 2.4 % (0-4); BLOOD GAS HCO3 25 mmol/L (22-26); BLOOD GAS METHEMOGLOBIN 0.9 % (0-2); BLOOD GAS O2 HGB SATURATION 96 % (90-100); BLOOD GAS OXYGEN CONTENT 15.3 Vol % (12.0-20.0); BLOOD GAS PCO2 32 mmHg (38-42); BLOOD GAS PO2 157 mmHg (61-120); BLOOD GAS TOTAL HGB 11.1 G/DL (12.0-16.0); TEMP CORR TO 98.6
[2016-07-06 07:42] LABS: CRITICAL VALUE YES; DRAW SITE LT RADIAL; FIO2 40 %; NUMBER OF ARTERIAL PUNCTURES 1; OXYGEN DEVICE VENTILATOR; STAT NO; ULNAR PULSE PRESENT; VENT SETTINGS AC/16/500/PEEP 5
--- NOTE | 2016-07-06 08:34 | EKG ---
Date Performed: 07/06/2016 Time Performed: 01:57:05 PTAGE: 46 years EKG: Sinus rhythm WITH FIRST DEGREE AV BLOCK INCOMPLETE RIGHT BUNDLE BRANCH BLOCK ABNORMAL ECG INTERPRETATION BASED ON A DEFAULT AGE OF 40 YEARS PREVIOUS TRACING : 03/26/2011 20.47 DOCTOR: Tj Kwok Interpretating Date/Time 07/06/2016 08:32:29
[2016-07-06] MEDS: ARTIFICIAL TEARS OPTH SOLN 15 ML BTL EACH EYE SCH ×3 (09:00→17:12)
[2016-07-06] MEDS: FAMOTIDINE 20 MG/2 ML VIAL IV PUSH SCH ×2 (09:00→20:23)
[2016-07-06] MEDS: SODIUM CHLORIDE 0.9% FLUSH 10 ML FLUSH SCH ×2 (09:00→20:23)
[2016-07-06] MEDS ORDERED: PROPOFOL 1000 MG/100 ML INJ 100 ML ONE (10:16)
[2016-07-06] MEDS: POTASSIUM CHLOR 20 MEQ PREMIX 100 ML IV PRN ×2 (11:02→12:25)
[2016-07-06] MEDS ORDERED: GLUCAGON 1 MG/ML VIAL IM/SQ PRN (11:30)
[2016-07-06] MEDS ORDERED: DEXTROSE 50% IN WATER 50 ML VIAL(D50) IV PRN (11:30)
[2016-07-06] MEDS ORDERED: SODIUM PHOSPHATE INJ 30 MMOL in SODIUM CHLOR 0.9% 250 ML INJ 250 ML IV ONE (13:00)
[2016-07-06] MEDS: POTASSIUM CHLOR 20 MEQ PREMIX 100 ML IV SCH ×2 (13:53→16:26)
[2016-07-06] MEDS: PROPOFOL 1000 MG/100 ML IV SCH ×2 (17:14→20:22)
[2016-07-06 17:16] LABS: HEMOGLOBIN A1b 1.8 %; HEMOGLOBIN Ao 84.4 %; HEMOGLOBIN LA1C 2.7 %; HEMOGLOBIN P3 4.1 %
[2016-07-06] MEDS: INSULIN ASPART SUPPLEMENTAL SCALE SQ SCH ×2 (17:50→23:43)
[2016-07-06 23:09] LABS: BLOOD GAS BASE EXCESS 5.3 mmol/L (-2-2); BLOOD GAS CARBOXYHEMOGLOBIN 1.6 % (0-4); BLOOD GAS HCO3 29 mmol/L (22-26); BLOOD GAS METHEMOGLOBIN 0.9 % (0-2); BLOOD GAS O2 HGB SATURATION 96 % (90-100); BLOOD GAS OXYGEN CONTENT 15.5 Vol % (12.0-20.0); BLOOD GAS PCO2 38 mmHg (38-42); BLOOD GAS PO2 96 mmHg (61-120); BLOOD GAS TOTAL HGB 11.4 G/DL (12.0-16.0); CRITICAL VALUE NO; DRAW SITE RT RADIAL; FIO2 30 %; NUMBER OF ARTERIAL PUNCTURES 1; OXYGEN DEVICE VENTILATOR; TEMP CORR TO 98.6; ULNAR PULSE PRESENT; VENT SETTINGS AC/12/500/PEEP5
[2016-07-07] VITALS (19 sets, daily range): BP systolic 110–158; BP diastolic 71–97; PULSE 52–71; RESP 12–16; TEMP 97.5–98.4; O2SAT 98–100
[2016-07-07] MEDS: POTASSIUM CHLOR 20 MEQ PREMIX 100 ML IV PRN ×4 (01:25→12:15)
[2016-07-07] MEDS: CHLORHEXIDINE GLUCONATE 2 % 1 PACK (2 CLOTHS) TOP SCH (03:39)
[2016-07-07] MEDS: SODIUM BICARBONATE 8.4% INJ 150 MEQ in DEXTROSE 5% IN WATE 1000ML INJ 1,000 ML IV SCH ×4 (04:28→12:12)
[2016-07-07] MEDS: DOCUSATE SODIUM 100 MG CAP G-TUBE SCH ×2 (04:28→16:58)
[2016-07-07 04:29] LABS: AUTOMATED NEUTROPHIL # 7.2 TH/MM3 (1.8-7.7); BASOPHIL # 0.1 TH/MM3 (0-0.2); BASOPHIL % 0.6 % (0.0-2.0); EOSINOPHIL # 0.1 TH/MM3 (0-0.4); HEMATOCRIT 35.1 % (35.0-46.0); HEMO FLAGS DIFF FINAL; LYMPH % 31.2 % (9.0-44.0); LYMPHOCYTE # 3.7 TH/MM3 (1.0-4.8); MEAN CELL VOLUME 94.6 FL (80.0-100.0); MEAN CORPUSCULAR HEMOGLOBIN 32.4 PG (27.0-34.0); MEAN CORPUSCULAR HGB CONC 34.3 % (32.0-36.0); MONO % 7.1 % (0.0-8.0); NEUT % 60.1 % (16.0-70.0); PLATELET COUNT 194 TH/MM3 (150-450); RED BLOOD COUNT 3.71 MIL/MM3 (4.00-5.30); RED CELL DISTRIBUTION WIDTH 14.3 % (11.6-17.2); WHITE BLOOD COUNT 11.9 TH/MM3 (4.0-11.0)
[2016-07-07] MEDS: INSULIN ASPART SUPPLEMENTAL SCALE SQ SCH ×4 (04:29→23:03)
[2016-07-07 04:41] LABS: ALT (GPT) 28 U/L (10-53); ANION GAP 6 MEQ/L (5-15); AST (GOT) 18 U/L (15-37); BICARBONATE 31.4 MEQ/L (21.0-32.0); BLOOD UREA NITROGEN 6 MG/DL (7-18); CHLORIDE 104 MEQ/L (98-107); GLOMERULAR FILTRATION RATE 88 ML/MIN (>89); MAGNESIUM 1.9 MG/DL (1.5-2.5); POTASSIUM 3.4 MEQ/L (3.5-5.1); SODIUM (NA) 141 MEQ/L (136-145)
[2016-07-07 04:47] LABS: ALKALINE PHOSPHATASE 60 U/L (45-117); TOTAL BILIRUBIN ADULT 0.4 MG/DL (0.2-1.0)
[2016-07-07] MEDS: PROPOFOL 1000 MG/100 ML IV SCH ×5 (05:42→21:02)
[2016-07-07] MEDS: ARTIFICIAL TEARS OPTH SOLN 15 ML BTL EACH EYE SCH ×3 (08:53→16:58)
[2016-07-07] MEDS: SODIUM CHLORIDE 0.9% FLUSH 10 ML FLUSH SCH ×2 (08:54→21:03)
[2016-07-07] MEDS: FAMOTIDINE 20 MG/2 ML VIAL IV PUSH SCH ×2 (08:54→21:03)
[2016-07-07] MEDS: SODIUM CHLORIDE 0.9% FLUSH 10 ML FLUSH PRN (08:54)
[2016-07-07] MEDS ORDERED: ROCURONIUM INJ 50 MG/5 ML VIAL ONE (10:11)
[2016-07-07] MEDS ORDERED: DEXMEDETOMIDINE INJ 200 MCG in SODIUM CHLORIDE 0.9% INJ 50 ML IV SCH (10:15)
--- NOTE | 2016-07-07 10:33 | HHI.CCPN ---
Subjective Remarks/Hospital Course 46 year old female was found by her mother unresponsive. Mom was concerned that she had overdosed as she has a history of depression and has overdosed in the past. Mom found empty bottles of doxepin, Xanax, and a clonidine. On the arrival, the patient was noted to be a GCS of 3 although her vital signs were unremarkable. The patient reportedly had 2-10 second generalized chronic tonic seizures. The patient had clenching of her mouth and was intubated for airway protection. Subjective: 07/07: TMax 99.0 early this a.m. the patient combative, moving extremities 4 not following commands and partially removed (self extubation) endotracheal tube, required emergent reintubation. The patient continues on sodium bicarbonate infusion, secondary to acidosis and doxepin overdose. Repeat EKG pending, monitoring QRS. Will begin infusion of Precedex, plans for CPAP trials today. Objective Vital Signs Date Time Temp Pulse Resp B/P Pulse Ox O2 Delivery O2 Flow Rate FiO2 07/07/16 08:00 53 07/07/16 08:00 98.2 16 148/87 100 07/07/16 08:00 30 07/06/16 06:00 Auto-Vent Intake and Output 07/06/16 07/06/16 07/07/16 08:00 16:00 00:00 Intake Total 2296 ml 1236 ml Output Total 450 ml 500 ml Balance 1846 ml 736 ml Result Diagram: 07/07/16 0339 07/07/16 0339 Other Results Laboratory Tests Test 07/06/16 22:57 Blood Gas Puncture Site RT RADIAL Blood Gas Patient Temperature 98.6 Blood Gas HCO3 29 mmol/L (22-26) Blood Gas Base Excess 5.3 mmol/L (-2-2) Blood Gas Oxygen Saturation 96 % (90-100) Arterial Blood pH 7.50 (7.380-7.420) Arterial Blood Partial 38 mmHg (38-42) Pressure CO2 Arterial Blood Partial 96 mmHg Pressure O2 (61-120) Arterial Blood Oxygen Content 15.5 Vol % (12.0-20.0) Arterial Blood 1.6 % (0-4) Carboxyhemoglobin Arterial Blood Methemoglobin 0.9 % (0-2) Blood Gas Hemoglobin 11.4 G/DL (12.0-16.0) Oxygen Delivery Device VENTILATOR Blood Gas Ventilator Setting AC/12/500/PEEP5 Blood Gas Inspired Oxygen 30 % Imaging Last 24 hours Impressions Chest X-Ray 07/06/16 0154 Signed Impressions: Service Date/Time: Wednesday, July 06, 2016 02:27 - CONCLUSION: 1. Endotracheal tube in the left mainstem bronchus. This should be retracted 4 cm. Cedric Aguilera MD Objective Remarks GENERAL: Well-nourished, well-developed patient. Anxious combative moving extremities 4 SKIN: Warm and dry. HEAD: Normocephalic. EYES: No scleral icterus. No injection or drainage. NECK: Supple, trachea midline. No JVD or lymphadenopathy. CARDIOVASCULAR: Regular rate and rhythm without murmurs, gallops, or rubs. RESPIRATORY: Mechanical ventilation .Breath sounds equal bilaterally. No accessory muscle use. GASTROINTESTINAL: Abdomen soft, non-tender, nondistended. No OGT in situ MUSCULOSKELETAL: No cyanosis, or edema. BACK: Nontender without obvious deformity. No CVA tenderness. EXTREMITIES: No clubbing cyanosis or edema Urinary Catheter: Yes Larson insert reason: Measure Accurate Output Date of Insertion: July 06, 2016 A/P Assessment and Plan Acute hypoxemic Respiratory failure - Intubated for airway protection -07/07 Self extubation-reintubated or airway protection, -Plan for CPAP trials today on Precedex infusion - Continue mechanical ventilation until neurologically improved Altered mental status - Due to overdose - Monitor neuro checks per unit protocol -Patient moving extremities 4 spontaneously ,not following commands Overdose - Poison Center notified by ED - Sodium bicarbonate drip - Serial labs - Telemetry -Repeat monitoring manager QRS duration still 118ms, will continue NaHCO3 infusion Depression - Psych evaluation when extubated DVT GI prophylaxis - Teds SCDs - Pepcid BID This patient remains critically ill with one or more organ systems which are or may become a threat to life. I have spent in excess of 39 minutes discontinuously in the care and management of this patient. This time is exclusive of procedures, and includes, but is not limited to, evaluation of the patient, review of the medical record, discussions with family, consultants, nursing staff, or respiratory therapy, and documentation in the medical record. Physician Maribel Mchugh MD July 07, 2016 10:33
--- NOTE | 2016-07-07 11:00 | RADRPT ---
EXAM DATE/TIME: 07/07/2016 10:23 [facility] COMPARISON: CHEST SINGLE AP, July 06, 2016, 2:27. INDICATIONS : Endotracheal tube placement. MEDICAL HISTORY : None. SURGICAL HISTORY : None. ENCOUNTER: Initial ACUITY: 1 day PAIN SCORE: Non-responsive. LOCATION: Bilateral chest FINDINGS: Portable AP view of the chest demonstrates a normal-sized cardiac silhouette. Endotracheal tube tip i s at the aortic knob level measuring 3.8 cm from the [place]. NG tube courses beyond the GE junction. The lungs are underinflated and there is bibasilar opacity. No pleural effusion or pneumothorax is vi sualized. CONCLUSION: 1. Endotracheal tube in appropriate position with tip measuring 3.8 cm from the [place]. 2. Underinflation with bibasilar airspace opacity representing either atelectasis or consolidation. Bebeto Gupta MD on July 07, 2016 at 10:57 Board Certified Radiologist. This report was verified electronically.
[2016-07-07 12:01] LABS: BETA HCG QUANT LESS THAN 1 MIU/ML (0-5); POTASSIUM 3.3 MEQ/L (3.5-5.1)
[2016-07-07 12:09] LABS: BLOOD GAS BASE EXCESS 6.5 mmol/L (-2-2); BLOOD GAS CARBOXYHEMOGLOBIN 1.4 % (0-4); BLOOD GAS HCO3 30 mmol/L (22-26); BLOOD GAS METHEMOGLOBIN 1.1 % (0-2); BLOOD GAS O2 HGB SATURATION 95 % (90-100); BLOOD GAS OXYGEN CONTENT 17.1 Vol % (12.0-20.0); BLOOD GAS PCO2 41 mmHg (38-42); BLOOD GAS PO2 94 mmHg (61-120); BLOOD GAS TOTAL HGB 12.7 G/DL (12.0-16.0); CRITICAL VALUE NO; DRAW SITE RT RADIAL; FIO2 35 %; NUMBER OF ARTERIAL PUNCTURES 2; OXYGEN DEVICE VENTILATOR; STAT NO; TEMP CORR TO 98.6; ULNAR PULSE PRESENT; VENT SETTINGS 500/12/5PEEP
[2016-07-07] MEDS: DEXMEDETOMIDINE INJ 1,000 MCG in SODIUM CHLOR 0.9% 250 ML INJ 250 ML IV SCH ×2 (12:12→21:02)
--- NOTE | 2016-07-07 16:10 | EKG ---
Date Performed: 07/06/2016 Time Performed: 23:16:38 PTAGE: 46 years EKG: Sinus bradycardia with first degree AV block Anterior T wave changes are nonspecific Low QR S voltages in precordial leads Borderline ECG No change compared to the prior study of 07/06/2016. NO PREVIOUS TRACING DOCTOR: Cedric Vega Interpretating Date/Time 07/07/2016 16:08:24
--- NOTE | 2016-07-07 16:10 | EKG ---
Date Performed: 07/07/2016 Time Performed: 10:52:36 PTAGE: 46 years EKG: Sinus tachycardia INCOMPLETE RIGHT BUNDLE BRANCH BLOCK ST DEVIATION AND MODERATE T-WAVE ABN ORMALITY, CONSIDER ANTERIOR ISCHEMIA Non-specific T wave changes. First degree AV block ABNORMAL ECG Compared to prior study, non-specific ST-T changes are new. Sinus tachycardia has replaced sinus lisa ycardia. PREVIOUS TRACING : 07/06/2016 23.16 DOCTOR: Cedric Vega Interpretating Date/Time 07/07/2016 16:10:01
[2016-07-08] VITALS (19 sets, daily range): BP systolic 102–128; BP diastolic 59–81; PULSE 56–83; RESP 12–26; TEMP 97.8–99.1; O2SAT 91–100
[2016-07-08] MEDS: DEXMEDETOMIDINE INJ 1,000 MCG in SODIUM CHLOR 0.9% 250 ML INJ 250 ML IV SCH (02:00)
[2016-07-08] MEDS: PROPOFOL 1000 MG/100 ML IV SCH ×4 (02:00→07:38)
[2016-07-08] MEDS: CHLORHEXIDINE GLUCONATE 2 % 1 PACK (2 CLOTHS) TOP SCH (04:00)
[2016-07-08] MEDS: DOCUSATE SODIUM 100 MG CAP G-TUBE SCH ×2 (04:27→17:33)
--- NOTE | 2016-07-08 04:37 | RADRPT ---
EXAM DATE/TIME: 07/08/2016 03:09 [facility] COMPARISON: CHEST SINGLE AP, July 07, 2016, 10:23. INDICATIONS : Evaluate for respiratory failure. MEDICAL HISTORY : None. SURGICAL HISTORY : None. ENCOUNTER: Subsequent ACUITY: 3 days PAIN SCORE: Non-responsive. LOCATION: chest FINDINGS: A single view of the chest demonstrates bibasilar densities. Heart normal size. Endotracheal tube and nasogastric tube unchanged in position. Osseous structures are intact. CONCLUSION: Minimal bibasilar densities. Lazarus Davila MD on July 08, 2016 at 4:35 Board Certified Radiologist. This report was verified electronically.
[2016-07-08] MEDS: INSULIN ASPART SUPPLEMENTAL SCALE SQ SCH ×4 (05:20→23:51)
[2016-07-08 07:06] LABS: BICARBONATE 29.1 MEQ/L (21.0-32.0); POTASSIUM 3.9 MEQ/L (3.5-5.1)
[2016-07-08] MEDS: SODIUM CHLORIDE 0.9% FLUSH 10 ML FLUSH SCH ×2 (07:39→20:33)
[2016-07-08] MEDS: SODIUM CHLORIDE 0.9% FLUSH 10 ML FLUSH PRN (07:39)
[2016-07-08] MEDS: FAMOTIDINE 20 MG/2 ML VIAL IV PUSH SCH ×2 (07:39→20:33)
[2016-07-08] MEDS: ARTIFICIAL TEARS OPTH SOLN 15 ML BTL EACH EYE SCH ×3 (07:39→17:46)
[2016-07-08 07:42] LABS: HEMATOCRIT 36.5 % (35.0-46.0); MEAN CELL VOLUME 94.6 FL (80.0-100.0); MEAN CORPUSCULAR HEMOGLOBIN 32.7 PG (27.0-34.0); MEAN CORPUSCULAR HGB CONC 34.5 % (32.0-36.0); PLATELET COUNT 153 TH/MM3 (150-450); RED BLOOD COUNT 3.86 MIL/MM3 (4.00-5.30); RED CELL DISTRIBUTION WIDTH 14.1 % (11.6-17.2); REVIEW FLAG AUTO DIFF; WHITE BLOOD COUNT 19.3 TH/MM3 (4.0-11.0)
--- NOTE | 2016-07-08 08:28 | HHI.CCPN ---
Subjective Remarks/Hospital Course 46 year old female was found by her mother unresponsive. Mom was concerned that she had overdosed as she has a history of depression and has overdosed in the past. Mom found empty bottles of doxepin, Xanax, and a clonidine. On the arrival, the patient was noted to be a GCS of 3 although her vital signs were unremarkable. The patient reportedly had 2-10 second generalized chronic tonic seizures. The patient had clenching of her mouth and was intubated for airway protection. Subjective: 07/07: TMax 99.0 early this a.m. the patient combative, moving extremities 4 not following commands and partially removed (self extubation) endotracheal tube, required emergent reintubation. The patient continues on sodium bicarbonate infusion, secondary to acidosis and doxepin overdose. Repeat EKG pending, monitoring QRS. Will begin infusion of Precedex, plans for CPAP trials today. 07/08: Tmax 98.2. Serial EKGs revealed QRS stable, poison control center contacted sodium bicarbonate infusion discontinued yesterday .CPAP trials begun early this a.m., SBT parameters obtained. Patient successfully extubated this a.m.. Psychiatry consulted. Perform bedside swallowing initiate clear liquid diet if tolerated by patient. Objective Vital Signs Date Time Temp Pulse Resp B/P Pulse Ox O2 Delivery O2 Flow Rate FiO2 07/08/16 06:00 59 07/08/16 04:07 100 35 07/08/16 04:00 98.2 12 108/63 07/06/16 06:00 Auto-Vent Intake and Output 07/07/16 07/07/16 07/08/16 08:00 16:00 00:00 Intake Total 1253 ml 890 ml 253 ml Output Total 550 ml 1700 ml 1230 ml Balance 703 ml -810 ml -977 ml Result Diagram: 07/08/16 0610 07/08/16 0610 Other Results Laboratory Tests Test 07/07/16 12:00 Blood Gas Puncture Site RT RADIAL Blood Gas Patient Temperature 98.6 Blood Gas HCO3 30 mmol/L (22-26) Blood Gas Base Excess 6.5 mmol/L (-2-2) Blood Gas Oxygen Saturation 95 % (90-100) Arterial Blood pH 7.48 (7.380-7.420) Arterial Blood Partial 41 mmHg (38-42) Pressure CO2 Arterial Blood Partial 94 mmHg Pressure O2 (61-120) Arterial Blood Oxygen Content 17.1 Vol % (12.0-20.0) Arterial Blood 1.4 % (0-4) Carboxyhemoglobin Arterial Blood Methemoglobin 1.1 % (0-2) Blood Gas Hemoglobin 12.7 G/DL (12.0-16.0) Oxygen Delivery Device VENTILATOR Blood Gas Ventilator Setting 500/12/5PEEP Blood Gas Inspired Oxygen 35 % Imaging Last 24 hours Impressions Chest X-Ray 07/06/16 0154 Signed Impressions: Service Date/Time: Wednesday, July 06, 2016 02:27 - CONCLUSION: 1. Endotracheal tube in the left mainstem bronchus. This should be retracted 4 cm. Cedric Aguilera MD Objective Remarks GENERAL: Well-nourished, well-developed patient. Lying semi-recumbent in bed, in no apparent distress SKIN: Warm and dry. HEAD: Normocephalic. EYES: No scleral icterus. No injection or drainage. NECK: Supple, trachea midline. No JVD or lymphadenopathy. CARDIOVASCULAR: Regular rate and rhythm without murmurs, gallops, or rubs. RESPIRATORY: Breath sounds equal bilaterally. No accessory muscle use. GASTROINTESTINAL: Abdomen soft, non-tender, nondistended. MUSCULOSKELETAL: No cyanosis, or edema. BACK: Nontender without obvious deformity. No CVA tenderness. EXTREMITIES: No clubbing cyanosis or edema Urinary Catheter: Yes Date of Insertion: July 06, 2016 A/P Assessment and Plan Acute hypoxemic Respiratory failure - Intubated for airway protection -07/07 Self extubation-reintubated or airway protection -07/08 extubation -Bronchodilators when necessary Altered mental status - Due to overdose - Monitor neuro checks per unit protocol -Patient moving extremities 4 spontaneously, following commands, motor strength 5 over 5 -Patient alert to self, states it is 2006 -Psychiatry consulted Overdose - Poison Center notified by ED - 07/07 Sodium bicarbonate discontinued - Serial labs - Telemetry -Repeat food service kitchen supervisor QRS 114->104ms decreased , NaHCO3 dc'd per recommendations of Poison Control Depression - See above Leukocytosis -WBC count 19.3 today from 11, possible aspiration yesterday with self extubation -Initiate Levaquin 500 mg daily DVT GI prophylaxis - Teds SCDs - Pepcid BID Level 3. Post extubation plan for transfer tomorrow to [facility]. Tentative plan to transfer to medical floor with bedside sitter. Discussed with SOLE INKER at bedside. Physician Maribel Mchugh MD July 08, 2016 08:28
[2016-07-08] MEDS: LEVOFLOXACIN 500 MG PREMIX INJ 100 ML IV SCH (09:31)
--- NOTE | 2016-07-08 15:25 | MB ---
cc: JERMAN HERNADEZ DATE OF CONSULTATION: 07/08/[address] Rivera REASON FOR CONSULTATION Multiple suicide attempts. HISTORY OF PRESENT ILLNESS Ms. Mock is a 46-year-old female with uncertain past psychiatric history, who presented to the emergency department after she was found unresponsive by her mother. There was concern for overdose on medications including possibly doxepin, Xanax and clonidine. The patient was placed under Osorio Act by the ED provider and admitted to the ICU for further management. Now that the patient has been extubated, psychiatry has been consulted to assess the Osorio Act. Reviewing the electronic medical record, I see no prior psychiatric contact within our system. Patient seen and examined. Chart reviewed. Case discussed with nurse in the [facility] who reports that the patient remains somewhat confused. On my examination today, the patient does indeed seem mildly delirious, see full mental status testing below. She purports to have no recollection of the circumstances that brought her to the hospital. She certainly does not remember making an overdose. She denies any suicidal or homicidal ideation at this time. She denies any audiovisual hallucinations, and I can elicit no delusional beliefs. The patient denies significant issues with low mood or elevated mood. The remainder of the psychiatric ROS is negative. With the patient's permission, I did endeavor to obtain collateral from the patient's mother, Jamila Merchant, at the number listed in AddressReport, but this number was not in service. PAST PSYCHIATRIC HISTORY The patient is likely an unreliable historian. She is unsure of her history or psychiatric diagnosis. She is not under the care of a psychiatrist. She denies any history of suicide attempts. She denies any history of psychiatric admissions. FAMILY HISTORY The patient denies any family history of mental illness. CHEMICAL DEPENDENCY HISTORY The patient denies any history of abuse of drugs or alcohol, although nursing staff does alert me that there is a possible history of benzodiazepine abuse. SOCIAL HISTORY The patient reports that she lives with her mother. She is single with no children. She is high school educated. She does not work and has no income. Denies any or legal history. Denies any access to guns or firearms. PAST MEDICAL HISTORY See electronic medical record. REVIEW OF SYSTEMS Somewhat limited because of the patient's mental state. No reported headache, vision or hearing changes, chest pain, shortness of breath, bowel or bladder issues. No other physical complaints. The patient is somewhat hoarse. PHYSICAL EXAMINATION Temperature is 98.3, pulse 78, respirations 26, blood pressure 105/63, pulse oximetry 97% on room air. Physical examination completed by the primary team. On my examination today, the patient is extubated and in no acute physical distress. No motor abnormalities noted. LABORATORY Laboratory is reviewed: CBC is significant for a leukocytosis with a white blood cell count of 19.3. CMP is unremarkable. Toxicology is positive for benzos and alcohol level was undetectable. Urinalysis results reviewed. IMAGING Head CT read as no acute process. MENTAL STATUS EXAMINATION The patient is in a hospital gown. She is somewhat disheveled. She is awake, alert and oriented to person and year but not to location or other details of date. Registration is 3/3 and recall is 0/3 at 5 minutes. She is able to spell the word "world" forwards but not backwards. She is able to name one of two items. She is unable to repeat a phrase. She is unable to name the President. No motor abnormalities noted. Speech is somewhat raspy but otherwise within normal limits for rate, tone and volume. Language and fund of knowledge seem average. The patient denies low mood or elevated mood. Affect is flat. Thought process is somewhat circumstantial. No loosening of associations. No evident delusions. Denies audiovisual hallucinations. Denies suicidal or homicidal ideation. Insight and judgment are unclear at present. ASSESSMENT AND PLAN 1. Delirium, likely multifactorial and related to recent drug overdose. This is a 46-year-old female with psychiatric history as detailed above, who is presently admitted to the [facility] under a Osorio Act following an overdose. The patient is presently somewhat delirious related to her overdose and so was unable to provide reliable information regarding her current mental state or history. Collateral is presently wanting. Given the severity of the overdose and the concern that it was suicidal in nature, I think it is most prudent to leave the Osorio Act in place for now pending reassessment. She should be closely monitored while she is in the [facility] and should be placed with a sitter when she goes out to the regular nursing floor. Osorio Act remains in place pending reassessment when mental state is improved. I will ask Dr. Arenas to follow up after the weekend, but please contact me for reassessment if mental state should improve over the weekend. Case discussed with RN in the [facility]. Thank you very much for this consultation. Jerman Hernadez DC/[place] /2:48 PM /3:15 PM AUGUSTO
--- NOTE | 2016-07-08 15:43 | EKG ---
Date Performed: 07/07/2016 Time Performed: 15:11:14 PTAGE: 46 years EKG: Sinus rhythm LOW QRS VOLTAGE IN PRECORDIAL LEADS BORDERLINE ECG PREVIOUS TRACING : 07/07/2016 10.52 DOCTOR: Tr Camacho Interpretating Date/Time 07/08/2016 15:36:18
[2016-07-08] MEDS: SODIUM CHLOR 0.9% 1000 ML INJ 1,000 ML IV SCH (17:46)
[2016-07-09] VITALS (15 sets, daily range): BP systolic 126–140; BP diastolic 67–92; PULSE 66–116; RESP 17–22; TEMP 96.2–99.3; O2SAT 96–98
[2016-07-09] MEDS: CHLORHEXIDINE GLUCONATE 2 % 1 PACK (2 CLOTHS) TOP SCH (04:00)
[2016-07-09] MEDS: DOCUSATE SODIUM 100 MG CAP G-TUBE SCH ×2 (05:53→18:04)
[2016-07-09] MEDS: SODIUM CHLOR 0.9% 1000 ML INJ 1,000 ML IV SCH ×2 (05:53→14:58)
--- NOTE | 2016-07-09 05:55 | RADRPT ---
EXAM DATE/TIME: 07/09/2016 03:00 [facility] COMPARISON: CHEST SINGLE AP, July 08, 2016, 3:09. INDICATIONS : Shortness of breath, possible pulmonary disease. MEDICAL HISTORY : None. SURGICAL HISTORY : None. ENCOUNTER: Subsequent ACUITY: 4 - 6 days PAIN SCORE: Non-responsive. LOCATION: Bilateral chest FINDINGS: A single view of the chest demonstrates persistent bibasilar consolidation. The heart normal in size. . Osseous structures are intact. CONCLUSION: Persistent bibasilar consolidation. Lazarus Davila MD on July 09, 2016 at 5:51 Board Certified Radiologist. This report was verified electronically.
[2016-07-09] MEDS: INSULIN ASPART SUPPLEMENTAL SCALE SQ SCH ×3 (05:56→18:00)
[2016-07-09 06:04] LABS: HEMATOCRIT 34.9 % (35.0-46.0); MEAN CELL VOLUME 94.7 FL (80.0-100.0); MEAN CORPUSCULAR HEMOGLOBIN 32.8 PG (27.0-34.0); MEAN CORPUSCULAR HGB CONC 34.6 % (32.0-36.0); PLATELET COUNT 152 TH/MM3 (150-450); RED BLOOD COUNT 3.69 MIL/MM3 (4.00-5.30); RED CELL DISTRIBUTION WIDTH 13.8 % (11.6-17.2); REVIEW FLAG FINAL; WHITE BLOOD COUNT 12.9 TH/MM3 (4.0-11.0)
[2016-07-09 07:06] LABS: BICARBONATE 24.4 MEQ/L (21.0-32.0); MAGNESIUM 2.1 MG/DL (1.5-2.5)
--- NOTE | 2016-07-09 07:48 | HHI.PR ---
Subjective Remarks The patient is still disoriented. She is smiling at times. She is in bed, appears in NAD. No events overnight. No n/v/d/c. Poor historian , doesn't answer to most of questions. Patient Plan to transfer to med/surg or to DC to med/psych if accepted . Objective Vitals Vital Signs Date Time Temp Pulse Resp B/P Pulse Ox O2 Delivery O2 Flow Rate FiO2 07/09/16 06:00 77 07/09/16 06:00 77 20 131/76 96 07/09/16 05:00 73 20 131/74 97 07/09/16 05:00 73 07/09/16 04:00 73 07/09/16 04:00 99.0 73 20 130/76 98 07/09/16 03:00 79 07/09/16 03:00 79 20 130/72 97 07/09/16 02:00 71 20 128/68 97 07/09/16 02:00 71 07/09/16 01:00 67 07/09/16 01:00 67 20 126/67 97 07/09/16 00:00 99.3 66 20 130/71 96 07/09/16 00:00 66 07/08/16 23:00 70 20 128/75 98 07/08/16 23:00 70 07/08/16 22:00 69 20 125/81 99 07/08/16 22:00 69 07/08/16 21:00 72 07/08/16 21:00 72 20 119/78 92 07/08/16 20:00 79 20 110/66 91 07/08/16 20:00 79 07/08/16 19:43 97 Nasal Cannula 2.00 07/08/16 19:00 83 07/08/16 19:00 99.1 75 20 115/69 98 07/08/16 18:00 74 07/08/16 16:30 96 Nasal Cannula 2.00 07/08/16 16:00 75 07/08/16 16:00 98.1 75 24 103/68 99 07/08/16 14:00 79 07/08/16 12:00 78 07/08/16 12:00 98.4 83 26 102/59 97 07/08/16 12:00 98.3 78 26 105/63 97 07/08/16 10:00 68 07/08/16 08:00 97 Nasal Cannula 4 07/08/16 08:00 83 07/08/16 08:00 98.4 83 26 102/59 97 I/O 07/08/16 07/08/16 07/08/16 07/09/16 07/09/16 07/09/16 07:00 15:00 23:00 07:00 15:00 23:00 Intake Total 298 ml 211 ml 1200 ml Output Total 850 ml 1700 ml 600 ml Balance -552 ml -1489 ml 600 ml Intake Oral 0 ml 0 ml IV Total 298 ml 211 ml 1200 ml Output Urine Total 850 ml 1700 ml 600 ml Emesis 0 ml # Bowel Movements 0 0 Result Diagram: 07/09/16 0404 07/09/16 0404 Imaging Last Impressions Chest X-Ray 07/09/16 0600 Signed Impressions: Service Date/Time: Saturday, July 09, 2016 03:00 - CONCLUSION: Persistent bibasilar consolidation. Lazarus Davila MD Head CT 07/06/16 0154 Signed Impressions: Service Date/Time: Wednesday, July 06, 2016 06:28 - CONCLUSION: 1. No evidence of acute intracranial pathology. No masses are identified. Cedric Aguilera MD Objective Remarks GENERAL: Well-nourished, well-developed patient. Lying semi-recumbent in bed, in no apparent distress SKIN: Warm and dry. HEAD: Normocephalic. EYES: No scleral icterus. No injection or drainage. NECK: Supple, trachea midline. No JVD or lymphadenopathy. CARDIOVASCULAR: Regular rate and rhythm without murmurs, gallops, or rubs. RESPIRATORY: Breath sounds equal bilaterally. No accessory muscle use. GASTROINTESTINAL: Abdomen soft, non-tender, nondistended. MUSCULOSKELETAL: No cyanosis, or edema. BACK: Nontender without obvious deformity. No CVA tenderness. Date of Insertion: July 06, 2016 A/P Assessment and Plan Acute hypoxemic Respiratory failure - Intubated for airway protection -07/07 Self extubation-reintubated for airway protection -/ extubation -Bronchodilators when necessary - Satting well on room air at this time Altered mental status - Due to overdose - Monitor neuro checks per unit protocol -Patient moving extremities 4 spontaneously, following commands, motor strength 5 over 5 -Patient alert to self, still disoriented. Doesn't answer questions. 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 WBC trending down. Monitor CBC -On Levaquin 500 mg daily DVT GI prophylaxis - Teds SCDs - Pepcid BID Discussed with the patient, nurse Trabsfer to med/surg floor with sitter. Keep Osorio act until lifted by [facility] doctor. Can DC to med./psych if OK with psych doctor Jessica Brandt MD July 09, 2016 07:48
[2016-07-09] MEDS: FAMOTIDINE 20 MG/2 ML VIAL IV PUSH SCH ×2 (07:56→21:09)
[2016-07-09] MEDS: ARTIFICIAL TEARS OPTH SOLN 15 ML BTL EACH EYE SCH ×3 (07:56→18:34)
[2016-07-09] MEDS: LEVOFLOXACIN 500 MG PREMIX INJ 100 ML IV SCH (07:56)
[2016-07-09] MEDS: SODIUM CHLORIDE 0.9% FLUSH 10 ML FLUSH SCH ×2 (07:57→21:00)
[2016-07-09] MEDS: POTASSIUM CHLOR 20 MEQ PREMIX 100 ML IV PRN ×2 (07:57→10:35)
[2016-07-09] MEDS ORDERED: POTASSIUM CHLORIDE 10 MEQ CONTROLLED RELEASE TAB PO ONE (13:00)
[2016-07-10] VITALS (23 sets, daily range): BP systolic 140–159; BP diastolic 88–98; PULSE 111–130; RESP 16–33; TEMP 97.3–100.4; O2SAT 94–97
[2016-07-10] MEDS: CHLORHEXIDINE GLUCONATE 2 % 1 PACK (2 CLOTHS) TOP SCH (04:00)
[2016-07-10 04:37] LABS: AUTOMATED NEUTROPHIL # 14.8 TH/MM3 (1.8-7.7); BASOPHIL # 0.1 TH/MM3 (0-0.2); BASOPHIL % 0.6 % (0.0-2.0); EOSINOPHIL % 0.3 % (0.0-4.0); HEMATOCRIT 40.6 % (35.0-46.0); HEMO FLAGS DIFF FINAL; LYMPHOCYTE # 1.2 TH/MM3 (1.0-4.8); MEAN CELL VOLUME 97.2 FL (80.0-100.0); MONO % 4.3 % (0.0-8.0); NEUT % 87.8 % (16.0-70.0); PLATELET COUNT 186 TH/MM3 (150-450); RED BLOOD COUNT 4.18 MIL/MM3 (4.00-5.30); RED CELL DISTRIBUTION WIDTH 13.7 % (11.6-17.2); WHITE BLOOD COUNT 16.9 TH/MM3 (4.0-11.0)
[2016-07-10] MEDS ORDERED: ACETAMINOPHEN 325 MG TAB PO ONE (04:45)
[2016-07-10 04:52] LABS: BICARBONATE 12.6 MEQ/L (21.0-32.0); POTASSIUM 3.7 MEQ/L (3.5-5.1)
--- NOTE | 2016-07-10 05:49 | RADRPT ---
EXAM DATE/TIME: 07/10/2016 05:10 [facility] COMPARISON: CHEST SINGLE AP, July 09, 2016, 3:00. INDICATIONS : New onset of fever. MEDICAL HISTORY : None. SURGICAL HISTORY : None. ENCOUNTER: Subsequent ACUITY: 4 - 6 days PAIN SCORE: 0/10 LOCATION: Bilateral chest FINDINGS: A single view of the chest demonstrates improving bibasilar densities. Heart normal size.. Osseous s tructures are intact. CONCLUSION: 1. Improving bibasilar densities. Lazarus Davila MD on July 10, 2016 at 5:47 Board Certified Radiologist. This report was verified electronically.
[2016-07-10] MEDS: CEFEPIME INJ 2,000 MG in SODIUM CHLORIDE 0.9% INJ 100 ML IV SCH ×3 (05:59→23:18)
[2016-07-10] MEDS: INSULIN ASPART SUPPLEMENTAL SCALE SQ SCH ×5 (06:00→23:19)
[2016-07-10] MEDS: DOCUSATE SODIUM 100 MG CAP G-TUBE SCH (06:00)
[2016-07-10 06:06] LABS: BACTERIA, URINE RARE /hpf; BLOOD, URINE TRACE (NEG); GLUCOSE,URINE NEG (NEG); KETONE, URINE 150 mg/dL (NEG); MUCUS URINE FEW /lpf (OCC); NITRITE,URINE NEG (NEG); SQUAMOUS EPITHELIAL CELL URINE 1 /hpf (0-5); URINE COLOR LIGHT-YELLOW (YELLW/STRAW)
[2016-07-10 06:07] LABS: COMMENT (UR) CATH-CULTURE IND; CULTURE IF INDICATED CATH CULTURE IND
[2016-07-10] MEDS: LEVOFLOXACIN 500 MG PREMIX INJ 100 ML IV SCH (08:35)
[2016-07-10] MEDS: ARTIFICIAL TEARS OPTH SOLN 15 ML BTL EACH EYE SCH ×3 (09:00→17:22)
--- NOTE | 2016-07-10 09:08 | HHI.PR ---
Subjective Remarks Noted with low bicarb. The patient is also noted tachycardic. She is more alert and oriented at this time (name, , date, however still with poor judgement, doesn't remember much), says she feels much better than yesterday. Denies palpitations , however says she has pain in her whole body, including chest pain , when ask to show where is the pain she points to epigastric pain. No n/v/d/c. She was not able to eat much. She is following commands. has generalized weakness. Ordered EKG as well as Bicarb, spoke with poison control who recommends Bicarb if EKG abn. Patient however is noted deteriorating, her RR is 35, and she is getting sob ,. EKG wih Aflutter, QRS is 94. Will transfer to ICU, called Dr Rivera in ICU who is aquinted with the patient. Objective Vitals Vital Signs Date Time Temp Pulse Resp B/P Pulse Ox O2 Delivery O2 Flow Rate FiO2 07/10/16 07:26 97.7 121 18 159/95 96 07/10/16 06:10 100.3 117 07/10/16 04:16 100.4 123 17 159/91 96 07/10/16 00:25 97.6 111 17 155/88 96 07/09/16 22:07 Nasal Cannula 2.00 07/09/16 20:25 97.0 116 17 136/81 97 07/09/16 16:00 98 07/09/16 16:00 96.6 111 22 138/82 98 07/09/16 15:31 98 Nasal Cannula 2.00 07/09/16 14:16 96.2 111 22 134/92 96 07/09/16 12:00 106 07/09/16 12:00 98.7 106 20 140/90 97 07/09/16 10:00 99 I/O 07/09/16 07/09/16 07/09/16 07/10/16 07/10/16 07/10/16 07:00 15:00 23:00 07:00 15:00 23:00 Intake Total 1200 ml 1346 ml 60 ml Output Total 600 ml 1600 ml 1100 ml 1000 ml Balance 600 ml -1600 ml 246 ml -940 ml Intake Oral 0 ml 120 ml 60 ml IV Total 1200 ml 1226 ml Output Urine Total 600 ml 1600 ml 1100 ml 1000 ml Emesis 0 ml # Bowel Movements 0 0 0 0 Result Diagram: 07/10/1641207/10/16 041 Objective Remarks GENERAL: Well-nourished, well-developed patient. Lying semi-recumbent in bed, in no apparent distress SKIN: Warm and dry. HEAD: Normocephalic. EYES: No scleral icterus. No injection or drainage. NECK: Supple, trachea midline. No JVD or lymphadenopathy. CARDIOVASCULAR: Regular rate and rhythm without murmurs, gallops, or rubs. RESPIRATORY: Breath sounds equal bilaterally. No accessory muscle use. GASTROINTESTINAL: Abdomen soft, non-tender, nondistended. MUSCULOSKELETAL: No cyanosis, or edema. BACK: Nontender without obvious deformity. No CVA tenderness. Date of Insertion: July 06, 2016 A/P Assessment and Plan Acute hypoxemic Respiratory failure - Intubated for airway protection -07/07 Self extubation-reintubated for airway protection -07/08 extubation -Bronchodilators when necessary - Satting well on room air at this time TCA related arrhythmia: Low bicarb ( drop at 12 07/10/16) , patient is also symptomatic tachycardic HR in 120-130s sustained sob, chest pain, tachypneic with RR 30-35. EKG reviewed , QRS is 94, however patient with tachycardia/AFlutter, RBB and slightly elevated T W in V3/V4 . Trop is negative Start bicarb drip. HR persistent in 130s will also gibe one bolus od cardizem. Consult cardiology. Consult tube depatcher, as patient RR in 30s and might deteriorate and might need intubation. Spoke with tube depatcher Maribel Rivera, appreciate recommendations. Will evaluate patient. Patient is transfered to [facility] for now. Monitor lytes and replace. Phos low replaced. mag and K normal . Altered mental status - Due to overdose - Monitor neuro checks per unit protocol -Patient moving extremities 4 spontaneously, following commands, motor strength 5 over 5 -Patient alert to self, still disoriented. Doesn't answer questions. -Psychiatry consulted Overdose - Poison Center notified by ED - 07/07 Sodium bicarbonate discontinued - Serial labs - Telemetry -Repeat quality assurance monitor QRS 114->104ms decreased , NaHCO3 dc'd per recommendations of Poison Control Depression - See above Leukocytosis -Noted WBC count 19.3 from 11, possible aspiration with self extubation. WBC trending down. Monitor CBC -On Levaquin 500 mg daily DVT GI prophylaxis - Teds SCDs - Pepcid BID Discussed with the patient, nurse Transfer to [facility] as noted with arrhythmia. Also consult tube depatcher as her RR is [place] in > 30s and SOB. Keep Osorio act until lifted by [facility] doctor. Critical time spent > 40 min Jessica Brandt MD July 10, 2016 09:08
[2016-07-10] MEDS ORDERED: SODIUM BICARBONATE 8.4% INJ 50 MEQ in SODIUM CHLOR 0.45% 1000 ML INJ 1,000 ML IV SCH (09:15)
[2016-07-10] MEDS ORDERED: SODIUM BICARBONATE 8.4% INJ 50 MEQ/50 ML SYR IV PUSH ONE (09:30)
[2016-07-10] MEDS ORDERED: SODIUM BICARBONATE 8.4% INJ 150 MEQ in DEXTROSE 5% IN WATE 1000ML INJ 1,000 ML IV SCH ×2 (10:00)
[2016-07-10] MEDS ORDERED: LORazepam 2 MG/ML VIAL IM ONE (10:30)
--- NOTE | 2016-07-10 10:33 | EKG ---
Date Performed: 07/10/2016 Time Performed: 09:43:48 PTAGE: 46 years EKG: Sinus TACHYCARDIA WITH RAPID VENTRICULAR RESPONSE INCOMPLETE RIGHT BUNDLE BRANCH BLOCK MODE RATE T-WAVE ABNORMALITY, CONSIDER ANTERIOR ISCHEMIA Electrical interferences ABNORMAL ECG PREVIOUS TRACING : 07/07/2016 15.11 DOCTOR: Lizette Castro Interpretating Date/Time 07/10/2016 10:32:23
[2016-07-10] MEDS: FAMOTIDINE 20 MG/2 ML VIAL IV PUSH SCH ×2 (10:39→21:00)
[2016-07-10] MEDS: SODIUM CHLORIDE 0.9% FLUSH 10 ML FLUSH SCH (10:41)
[2016-07-10 11:14] LABS: ANION GAP 16 MEQ/L (5-15); BICARBONATE 15.1 MEQ/L (21.0-32.0); BLOOD UREA NITROGEN 5 MG/DL (7-18); CHLORIDE 108 MEQ/L (98-107); GLOMERULAR FILTRATION RATE 90 ML/MIN (>89); MAGNESIUM 1.9 MG/DL (1.5-2.5); POTASSIUM 3.7 MEQ/L (3.5-5.1); SODIUM (NA) 139 MEQ/L (136-145)
[2016-07-10 11:42] LABS: ALKALINE PHOSPHATASE 98 U/L (45-117); ALT (GPT) 15 U/L (10-53); AST (GOT) 6 U/L (15-37); TOTAL BILIRUBIN ADULT 0.7 MG/DL (0.2-1.0)
[2016-07-10] MEDS ORDERED: POTASSIUM PHOSPHATE MONOBASIC 500 MG TAB PO PRN (12:00)
[2016-07-10] MEDS ORDERED: POTASSIUM CHLOR 20 MEQ PREMIX 100 ML IV PRN ×2 (12:00)
[2016-07-10] MEDS ORDERED: MAGNESIUM SULFATE INJ 2 GM in SODIUM CHLORIDE 0.9% INJ 96 ML IV PRN (12:00)
[2016-07-10] MEDS ORDERED: ONDANSETRON HCL 4 MG/2 ML VIAL IV PRN (12:00)
[2016-07-10] MEDS ORDERED: CHLORHEXIDINE GLUCONATE 2 % 1 PACK (2 CLOTHS) TOP PRN (12:00)
[2016-07-10] MEDS ORDERED: POTASSIUM CHLORIDE 25 MEQ EFFERVESCENT TAB PO PRN (12:00)
[2016-07-10] MEDS ORDERED: SODIUM CHLORIDE 0.9% FLUSH 10 ML FLUSH IV FLUSH PRN (12:00)
[2016-07-10] MEDS ORDERED: MISCELLANEOUS NURSING INFORMATION XX SCH (12:00)
[2016-07-10] MEDS ORDERED: RESP: ALBUTEROL 2.5 MG/IPRATROPIUM 0.5 MG NEB (PRN) INH (12:00)
[2016-07-10] MEDS ORDERED: POTASSIUM PHOSPHATE MONOBASIC 500 MG TAB PO/TUBE PRN (12:00)
[2016-07-10] MEDS ORDERED: MAGNESIUM SULFATE INJ 4 GM in SODIUM CHLORIDE 0.9% INJ 92 ML IV PRN (12:00)
[2016-07-10] MEDS ORDERED: BISACODYL EC 5 MG TABEC PO PRN (12:00)
[2016-07-10] MEDS ORDERED: MAGNESIUM OXIDE 400 MG TAB PO PRN (12:00)
[2016-07-10] MEDS ORDERED: SODIUM PHOSPHATE INJ 30 MMOL in SODIUM CHLOR 0.9% 250 ML INJ 240 ML IV PRN (12:00)
[2016-07-10] MEDS ORDERED: POTASSIUM CHLOR 40 MEQ PREMIX 100 ML IV PRN ×2 (12:00)
--- NOTE | 2016-07-10 12:16 | HHI.HP ---
HPI Service Critical Care Medicine Primary Care Physician No Primary Care Physician Admission Diagnosis Multidrug overdose Diagnosis: Travel History International Travel<30 Days: No Contact w/Intl Traveler <30 Da: No Traveled to Known Affected Are: No History of Present Illness 46 year old female was found by her mother unresponsive. Mom was concerned that she had overdosed as she has a history of depression and has overdosed in the past. Mom found empty bottles of doxepin, Xanax, and a clonidine. On the arrival, the patient was noted to be a GCS of 3 although her vital signs were unremarkable. The patient reportedly had 2-10 second generalized chronic tonic seizures. The patient had clenching of her mouth and was intubated for airway protection. The patient was admitted to ICU 07/06/2016. She remained intubated for approximately 36 hours, on a sodium bicarbonate infusion, with EKG monitoring secondary to TCA overdose. Resolution of her QRS, lengthening, and metabolic acidosis occurred. On 07/08/19 a psychiatric consult was ordered and the patient was transferred to [facility]. Today a Halicat was called secondary to the patient being tachycardic with a heart rate in the 120s and sodium bicarbonate level dropped to 13. Of note the patient has a persistent leukocytosis. Blood, urine cultures were obtained the patient was placed on an air empiric antibiotics cefepime 2 g every [address] Brandt, critical care medicine's consult for management. Review of Systems Constitutional: COMPLAINS OF: Fatigue, Fever Psychiatric: COMPLAINS OF: Anxiety Past Family Social History Allergies: Coded Allergies: Codeine (Verified Allergy, Severe, Anaphylaxis, 07/06/16) Iodine (Verified Allergy, Severe, Anaphylaxis, 07/06/16) Seroquel (Verified Allergy, Severe, Anaphylaxis, 07/06/16) Tramadol (Verified Allergy, Severe, Anaphylaxis, 07/06/16) Uncoded Allergies: SEROQUEL (Allergy, Severe, THROAT CLOSES, 03/26/11) Physical Exam Vital Signs Vital Signs Date Time Temp Pulse Resp B/P Pulse Ox O2 Delivery O2 Flow Rate FiO2 07/10/16 09:54 97.3 127 33 145/96 96 07/10/16 08:00 121 07/10/16 07:26 97.7 121 18 159/95 96 07/10/16 06:10 100.3 117 07/10/16 04:16 100.4 123 17 159/91 96 07/10/16 00:25 97.6 111 17 155/88 96 07/09/16 22:07 Nasal Cannula 2.00 07/09/16 20:25 97.0 116 17 136/81 97 07/09/16 16:00 98 07/09/16 16:00 96.6 111 22 138/82 98 07/09/16 15:31 98 Nasal Cannula 2.00 07/09/16 14:16 96.2 111 22 134/92 96 Physical Exam GENERAL: Well-nourished, well-developed patient. Lying semi-recumbent in bed, tachypneic, in mild distress SKIN: Warm and dry. HEAD: Normocephalic. EYES: No scleral icterus. No injection or drainage. NECK: Supple, trachea midline. No JVD or lymphadenopathy. CARDIOVASCULAR: Regular rate and rhythm without murmurs, gallops, or rubs. RESPIRATORY: Breath sounds equal bilaterally. No accessory muscle use. Tachypneic on nasal cannula GASTROINTESTINAL: Abdomen soft, non-tender, nondistended. MUSCULOSKELETAL: No cyanosis, or edema. BACK: Nontender without obvious deformity. No CVA tenderness. EXTREMITIES: No clubbing cyanosis or edema Laboratory Laboratory Tests Test 07/10/16 07/10/16 07/10/16 07/10/16 04:13 04:20 05:59 10:15 White Blood Count 16.9 Red Blood Count 4.18 Hemoglobin 13.4 Hematocrit 40.6 Mean Corpuscular Volume 97.2 Mean Corpuscular Hemoglobin 32.0 Mean Corpuscular Hemoglobin 33.0 Concent Red Cell Distribution Width 13.7 Platelet Count 186 Mean Platelet Volume 10.2 Neutrophils (%) (Auto) 87.8 Lymphocytes (%) (Auto) 7.0 Monocytes (%) (Auto) 4.3 Eosinophils (%) (Auto) 0.3 Basophils (%) (Auto) 0.6 Neutrophils # (Auto) 14.8 Lymphocytes # (Auto) 1.2 Monocytes # (Auto) 0.7 Eosinophils # (Auto) 0.0 Basophils # (Auto) 0.1 CBC Comment DIFF FINAL Differential Comment Sodium Level 139 139 Potassium Level 3.7 3.7 Chloride Level 110 108 Carbon Dioxide Level 12.6 15.1 Anion Gap 16 16 Blood Urea Nitrogen 5 5 Creatinine 0.63 0.70 Estimat Glomerular Filtration 101 90 Rate Random Glucose 112 120 Calcium Level 9.7 9.3 Urine Color LIGHT-YELLOW Urine Turbidity CLEAR Urine pH 5.0 Urine Specific [place] 1.015 Urine Protein TRACE Urine Glucose (UA) NEG Urine Ketones 150 Urine Occult Blood TRACE Urine Nitrite NEG Urine Bilirubin NEG Urine Urobilinogen LESS THAN 2.0 Urine Leukocyte Esterase NEG Urine RBC LESS THAN 1 Urine WBC 2 Urine Squamous Epithelial 1 Cells Urine Bacteria RARE Urine Mucus FEW Microscopic Urinalysis Comment CATH-CULTURE IND Lactic Acid Level 0.7 Magnesium Level 1.9 Total Bilirubin 0.7 Aspartate Amino Transf 6 (AST/SGOT) Alanine Aminotransferase 15 (ALT/SGPT) Alkaline Phosphatase 98 Troponin I LESS THAN 0.02 Total Protein 8.0 Albumin 3.4 Test 07/10/16 10:25 Lactic Acid Level 0.7 Date/Time Procedure Status Source Growth 07/10/16 06:20 Aerobic Blood Culture Received Blood Peripheral Pending 07/10/16 06:20 Anaerobic Blood Culture Received Blood Peripheral Pending 07/10/16 04:20 Urine Culture Received Urine Catheterized Urine Pending 07/08/16 11:20 Aerobic Blood Culture - Preliminary Resulted Blood Peripheral NO GROWTH IN 2 DAYS 07/08/16 11:20 Anaerobic Blood Culture - Preliminary Resulted Blood Peripheral NO GROWTH IN 2 DAYS Result Diagram: 07/10/16 0413 07/10/16 1015 Imaging Last Impressions Chest X-Ray 07/10/16 0000 Signed Impressions: Service Date/Time: Sunday, July 10, 2016 05:10 - CONCLUSION: 1. Improving bibasilar densities. Lazarus Davila MD Head CT 07/06/16 0154 Signed Impressions: Service Date/Time: Wednesday, July 06, 2016 06:28 - CONCLUSION: 1. No evidence of acute intracranial pathology. No masses are identified. Cedric Aguilera MD Septic Shock Reassessment Peripheral Pulses: Bounding Right Radial Bounding Left Radial Assessment and Plan Assessment and Plan Acute hypoxemic Respiratory failure-resolved Respiratory insufficiency Probable pneumonia secondary to initial inciting event (aspiration) or during self extubation - 07/06 Intubated for airway protection -07/07 Self extubation-reintubated or airway protection -07/08 extubation-transferred to medical floor -07/10 chest x-raybilateral basilar infiltrate -Bronchodilators 4 hours when necessary Altered mental status-resolved - Due to overdose - Monitor neuro checks per unit protocol -Patient moving extremities 4 spontaneously, following commands, 07/08 -Psychiatry following - Osorio Act in place Overdose - Poison Center notified by ED - 07/07 Sodium bicarbonate discontinued.07/07 Repeat surveillance system monitor QRS 114->104ms decreased , NaHCO3 dc'd per recommendations of Poison Control - Serial labs - Telemetry Persistent metabolic acidosis -Possibly secondary to an infectious process-presumed pneumonia -07/10 Initiate sodium bicarbonate infusion at 100 cc/an hour -Monitor bicarbonate levels-no longer thought to be part of TCA overdose, and timeframe,discussed with poison control Depression - See above Sinus tachycardia Most likely secondary to infectious process bolus with 1 L of LR Monitor urine output Continue to monitor Obtain ultrasound bilateral upper and lower extremities Persistent Leukocytosis -WBC count 16 -Levaquin 500 mg daily, on for 2 days, cefepime started 07/10 -Begin vancomycin -Obtain lactate level, sepsis protocol -Bolus LR 1 L -Tylenol 650 mg for fever greater than 101 DVT GI prophylaxis - Teds SCDs - Pepcid BID my billing statement This patient remains critically ill with one or more organ systems which are or may become a threat to life. I have spent in excess of 33 minutes discontinuously in the care and management of this patient. This time is exclusive of procedures, and includes, but is not limited to, evaluation of the patient, review of the medical record, discussions with family, consultants, nursing staff, or respiratory therapy, and documentation in the medical record. Discussed with BONE WORKER at bedside. Code Status Full Discussed Condition With Patient , patient's mother and RN at bedside. Maribel Rivera MD July 10, 2016 12:16
[2016-07-10] MEDS ORDERED: Vancomycin Consult Pharmacy 1 EA OTHER SCH (12:45)
[2016-07-10] MEDS ORDERED: LACTATED RINGER'S 1000 ML INJ 1,000 ML IV ONE (12:45)
[2016-07-10] MEDS: SODIUM BICARBONATE 8.4% INJ 150 MEQ in DEXTROSE 5% IN WATE 1000ML INJ 850 ML IV SCH ×4 (13:00→23:00)
[2016-07-10] MEDS ORDERED: DILTIAZEM HCL 25 MG/5 ML VIAL IV ONE (13:15)
[2016-07-10 13:30] LABS: BLOOD GAS BASE EXCESS -7.1 mmol/L (-2-2); BLOOD GAS CARBOXYHEMOGLOBIN 1.8 % (0-4); BLOOD GAS HCO3 16 mmol/L (22-26); BLOOD GAS METHEMOGLOBIN 1.3 % (0-2); BLOOD GAS O2 HGB SATURATION 93 % (90-100); BLOOD GAS OXYGEN CONTENT 17.7 Vol % (12.0-20.0); BLOOD GAS PCO2 24 mmHg (38-42); BLOOD GAS PO2 78 mmHg (61-120); BLOOD GAS TOTAL HGB 13.5 G/DL (12.0-16.0); CRITICAL VALUE YES; OXYGEN DEVICE NASAL CANNULA; TEMP CORR TO 98.6
[2016-07-10 13:31] LABS: DRAW SITE RT RADIAL; LITER FLOW 3 L/M; NUMBER OF ARTERIAL PUNCTURES 1; STAT YES; ULNAR PULSE PRESENT
[2016-07-10] MEDS: VANCOMYCIN INJ 1,250 MG in SODIUM CHLOR 0.9% 250 ML INJ 250 ML IV SCH (14:34)
[2016-07-10] MEDS ORDERED: POTASSIUM PHOSPHATE MONOBASIC 500 MG TAB PO ONE (17:00)
--- NOTE | 2016-07-10 17:09 | MB ---
cc: AMRITA BUCHANAN M.D. DATE OF CONSULTATION: 07/10/2016 REASON FOR CONSULTATION: Tachyarrhythmia. HISTORY OF PRESENT ILLNESS: Ms. Mock is a 46-year-old female with history of depression admitted due to a multi-drug overdose. The patient was found with an empty bottle of Doxepin, Xanax and clonidine. She was admitted and intubated. Subsequently she was extubated. During hospitalization, she developed what appeared to be a supraventricular tachycardia. I was consulted for further evaluation and management. The chart was reviewed. The patient was evaluated. ALLERGIES: 1. CODEINE. 2. IODINE. 3. SEROQUEL. 4. TRAMADOL. SOCIAL HISTORY The patient stopped smoking a couple of weeks ago apparently. FAMILY HISTORY: Noncontributory to her current medical condition. MEDICATIONS: 1. Magnesium. 2. Potassium. 3. Vancomycin. 4. Cardizem IV was given today once. 5. She is on Ativan PRN. REVIEW OF SYSTEMS: She refers feeling better, not depressed. No shortness of breath. PHYSICAL EXAMINATION: GENERAL: Alert, fully oriented. VITAL SIGNS: Her blood pressure is high at 153/98, pulse around 118, respiratory rate 20. LUNGS: Ventilated. CARDIOVASCULAR: S1 and S2. Tachycardia. Regular. ABDOMEN: Abdomen soft, no mass, no bruits. EXTREMITIES: With no edema. EKGS: EKG shows what appears to be sinus tachycardia and complete right bundle-branch block. LABS: Hemoglobin is 13, white blood cell 16.9. Potassium is 3.7, creatinine 0.70. INR 1.1. ASSESSMENT: Ms. Mock has sinus tachycardia. She has no fever. There is no sign of active infection but the white blood cell count is increased to 16.9. There is a suspicion of pulmonary embolism. Extremity Doppler ordered. But, there is no sign of respiratory distress. RECOMMENDATIONS: At this point my recommendation is observation. Because of her depression, I will not use beta emerson. She will be observed because she is only 46. Her heart rate is 110 to 116. If her heart rate increases, then I might use Cardizem. I will closely monitor her during hospitalization. The case discussed with the patient. MD EDWARD Fuller/SHAHNAZ /4:54 PM /5:03 PM
--- NOTE | 2016-07-10 20:11 | RADRPT ---
EXAM DATE/TIME: 07/10/2016 16:44 [facility] COMPARISON: No previous studies available for comparison. INDICATIONS : Bilateral leg swelling. MEDICAL HISTORY : Seizures. . Hypercholesterolemia. Migraines. Stomach ulcers. Endometriosis. Uterine fibroids . Ovarian cysts. Post traumatic stress disorder. Depression. Anxiety. Suicide attempt. Substance abus e. SURGICAL HISTORY : Exploratory laparoscopy. ENCOUNTER: Initial ACUITY: 1 day PAIN SCORE: 0/10 LOCATION: Bilateral legs. TECHNIQUE: Venous ultrasound of the left and right leg was performed from the inguinal ligament to the proximal calf. Real-time, color Doppler and spectral tracing, compression and augmentation techniques were us ed. FINDINGS: RIGHT LEG: There is normal compressibility of the deep venous system from the inguinal region to the proximal ca lf. No echogenic clot is seen in the lumen of the common femoral, femoral, popliteal, and posterior tibial veins. There is a normal response of the venous system to proximal and distal augmentation an d respiration. LEFT LEG: There is normal compressibility of the deep venous system from the inguinal region to the proximal ca lf. No echogenic clot is seen in the lumen of the common femoral, femoral, popliteal, and posterior tibial veins. There is a normal response of the venous system to proximal and distal augmentation an d respiration. CONCLUSION: Normal examination. Marco Antonio Rhoades MD on July 10, 2016 at 20:09 Board Certified Radiologist. This report was verified electronically.
--- NOTE | 2016-07-10 20:13 | RADRPT ---
EXAM DATE/TIME: 07/10/2016 17:02 [facility] COMPARISON: No previous studies available for comparison. INDICATIONS : Bilateral arm swelling. MEDICAL HISTORY : Seizures. . Hypercholesterolemia. Migraines. Stomach ulcers. Endometriosis. Uterine fibroids . Ovarian cysts. Post traumatic stress disorder. Depression. Anxiety. Suicide attempt. Substance abus e. SURGICAL HISTORY : Exploratory laparoscopy. ENCOUNTER: Initial ACUITY: 1 day PAIN SCORE: 0/10 LOCATION: Bilateral arms. FINDINGS: There is occlusive superficial thrombus in the cephalic veins bilaterally on the right side distal to the antecubital vein proximal to the IV catheter and on the left side in the forearm proximal to the IV catheter. No deep venous thrombosis. CONCLUSION: 1. Superficial thrombus in the cephalic veins bilaterally. No deep venous thrombosis. Marco Antonio Rhoades MD on July 10, 2016 at 20:09 Board Certified Radiologist. This report was verified electronically.
[2016-07-10] MEDS ORDERED: SODIUM CHLORIDE 0.9% FLUSH 10 ML FLUSH IV FLUSH SCH (21:00)
[2016-07-10] MEDS ORDERED: LORazepam 2 MG/ML VIAL IV PUSH ONE (22:00)
[2016-07-10] MEDS: DOCUSATE SODIUM 100 MG CAP PO SCH (23:18)
[2016-07-11] VITALS (24 sets, daily range): BP systolic 113–152; BP diastolic 80–98; PULSE 114–126; RESP 19–24; TEMP 98.6–99.6; O2SAT 90–96
[2016-07-11] MEDS: VANCOMYCIN INJ 1,250 MG in SODIUM CHLOR 0.9% 250 ML INJ 250 ML IV SCH ×2 (03:00→15:41)
[2016-07-11] MEDS: CHLORHEXIDINE GLUCONATE 2 % 1 PACK (2 CLOTHS) TOP SCH (03:40)
[2016-07-11] MEDS: CEFEPIME INJ 2,000 MG in SODIUM CHLORIDE 0.9% INJ 100 ML IV SCH ×3 (05:00→21:38)
[2016-07-11] MEDS: INSULIN ASPART SUPPLEMENTAL SCALE SQ SCH ×3 (06:00→17:00)
[2016-07-11 06:24] LABS: AUTOMATED NEUTROPHIL # 11.3 TH/MM3 (1.8-7.7); BASOPHIL # 0.1 TH/MM3 (0-0.2); BASOPHIL % 0.7 % (0.0-2.0); EOSINOPHIL # 0.2 TH/MM3 (0-0.4); EOSINOPHIL % 1.2 % (0.0-4.0); HEMATOCRIT 37.6 % (35.0-46.0); HEMO FLAGS DIFF FINAL; LYMPH % 14.7 % (9.0-44.0); LYMPHOCYTE # 2.2 TH/MM3 (1.0-4.8); MEAN CELL VOLUME 92.3 FL (80.0-100.0); MEAN CORPUSCULAR HEMOGLOBIN 33.2 PG (27.0-34.0); MEAN CORPUSCULAR HGB CONC 35.9 % (32.0-36.0); MONO % 6.9 % (0.0-8.0); NEUT % 76.5 % (16.0-70.0); PLATELET COUNT 226 TH/MM3 (150-450); RED BLOOD COUNT 4.07 MIL/MM3 (4.00-5.30); RED CELL DISTRIBUTION WIDTH 13.5 % (11.6-17.2); WHITE BLOOD COUNT 14.8 TH/MM3 (4.0-11.0)
[2016-07-11 07:04] LABS: ALKALINE PHOSPHATASE 86 U/L (45-117); ALT (GPT) 15 U/L (10-53); ANION GAP 11 MEQ/L (5-15); AST (GOT) 9 U/L (15-37); BICARBONATE 29.2 MEQ/L (21.0-32.0); BLOOD UREA NITROGEN 6 MG/DL (7-18); CHLORIDE 102 MEQ/L (98-107); GLOMERULAR FILTRATION RATE 105 ML/MIN (>89); MAGNESIUM 1.9 MG/DL (1.5-2.5); SODIUM (NA) 142 MEQ/L (136-145); TOTAL BILIRUBIN ADULT 0.8 MG/DL (0.2-1.0)
[2016-07-11 07:08] LABS: POTASSIUM 2.8 MEQ/L (3.5-5.1)
[2016-07-11] MEDS ORDERED: POTASSIUM CHLOR 20 MEQ PREMIX 100 ML IV ONE (08:00)
[2016-07-11] MEDS: FAMOTIDINE 20 MG/2 ML VIAL IV PUSH SCH ×2 (08:01→21:28)
[2016-07-11] MEDS: POTASSIUM CHLORIDE 25 MEQ EFFERVESCENT TAB NG SCH ×2 (08:01→21:27)
[2016-07-11] MEDS: DOCUSATE SODIUM 100 MG CAP PO SCH ×2 (08:01→21:27)
[2016-07-11] MEDS: LEVOFLOXACIN 500 MG PREMIX INJ 100 ML IV SCH (08:02)
[2016-07-11] MEDS: ARTIFICIAL TEARS OPTH SOLN 15 ML BTL EACH EYE SCH ×3 (08:02→16:09)
[2016-07-11] MEDS: SODIUM CHLORIDE 0.9% FLUSH 10 ML FLUSH PRN (08:02)
[2016-07-11] MEDS: SODIUM BICARBONATE 8.4% INJ 150 MEQ in DEXTROSE 5% IN WATE 1000ML INJ 850 ML IV SCH ×2 (08:02)
--- NOTE | 2016-07-11 08:28 | HHI.PR ---
Subjective Remarks Seen earlier today. With low K . replaced. Patient is dessqating in upper 80s while on room air and o2 is in 93 while on 2L nC. Patient say sshe feels sob. Says she feels anxious and thinks she might go through withdrawals. Overall is improving today. she is more awake and alert ( by full name, , location, date and president of the [place]). Patient says she has some substernal chest pain associated with sob. She is also coughing more sputum out yellow in color, no blood in it. Also centrifugal casting machine operator at bedside Dr Rivera. Discussed with the patient, nurse, centrifugal casting machine operator. Objective Vitals Vital Signs Date Time Temp Pulse Resp B/P Pulse Ox O2 Delivery O2 Flow Rate FiO2 07/11/16 05:01 99.0 126 22 127/87 90 07/11/16 05:00 122 07/11/16 04:00 120 07/11/16 03:00 122 07/11/16 02:00 120 07/11/16 01:28 98.6 120 22 152/91 94 07/11/16 01:00 126 07/11/16 00:00 122 07/10/16 23:00 119 07/10/16 22:00 114 07/10/16 21:36 98.4 113 28 140/95 94 07/10/16 21:00 116 07/10/16 20:00 118 07/10/16 19:00 116 07/10/16 18:00 118 07/10/16 17:00 116 07/10/16 16:00 98.2 125 18 153/98 95 07/10/16 16:00 118 07/10/16 15:00 120 07/10/16 14:00 130 07/10/16 13:00 130 07/10/16 12:00 98.1 122 16 142/97 97 07/10/16 12:00 122 07/10/16 11:00 120 07/10/16 10:00 122 07/10/16 09:54 97.3 127 33 145/96 96 07/10/16 09:00 120 I/O 07/10/16 07/10/16 07/10/16 07/11/16 07/11/16 07/11/16 07:00 15:00 23:00 07:00 15:00 23:00 Intake Total 60 ml 1890 ml 420 ml Output Total 1000 ml 900 ml 1575 ml Balance -940 ml 990 ml -1155 ml Intake Oral 60 ml 540 ml 420 ml IV Total 1350 ml Output Urine Total 1000 ml 900 ml 1575 ml # Bowel Movements 0 0 0 Result Diagram: 07/11/16 0556 07/11/16 0556 Imaging Last Impressions Upper Extremity Ultrasound 07/10/16 0000 Signed Impressions: Service Date/Time: Sunday, July 10, 2016 17:02 - CONCLUSION: 1. Superficial thrombus in the cephalic veins bilaterally. No deep venous thrombosis. Marco Antonio Rhoades MD Lower Extremity Ultrasound 07/10/16 0000 Signed Impressions: Service Date/Time: Sunday, July 10, 2016 16:44 - CONCLUSION: Normal examination. Marco Antonio Rhoades MD Chest X-Ray 07/10/16 Signed Impressions: Service Date/Time: Sunday, July 10, 2016 05:10 - CONCLUSION: 1. Improving bibasilar densities. Lazarus Davila MD Head CT 07/06/16 0154 Signed Impressions: Service Date/Time: Wednesday, July 06, 2016 06:28 - CONCLUSION: 1. No evidence of acute intracranial pathology. No masses are identified. Cedric Aguilera MD Objective Remarks GENERAL: Well-nourished, well-developed patient. Lying semi-recumbent in bed, in no apparent distress SKIN: Warm and dry. HEAD: Normocephalic. EYES: No scleral icterus. No injection or drainage. NECK: Supple, trachea midline. No JVD or lymphadenopathy. CARDIOVASCULAR: Regular rate and rhythm without murmurs, gallops, or rubs. RESPIRATORY: Breath sounds equal bilaterally. No accessory muscle use. GASTROINTESTINAL: Abdomen soft, non-tender, nondistended. MUSCULOSKELETAL: No cyanosis, or edema. BACK: Nontender without obvious deformity. No CVA tenderness. Date of Insertion: July 06, 2016 A/P Assessment and Plan Acute hypoxemic Respiratory failure - Intubated for airway protection -07/07 Self extubation-reintubated for airway protection and poss aspiration PNA when she self extubated -07/08 extubation -Bronchodilators when necessary - Satting well on nasal canula at this time, dessating on room air TCA related arrhythmia: Hypokalemia Hypophosphatemia Low bicarb ( drop at 12 07/10/16) , patient is also symptomatic tachycardic HR in 120-130s sustained sob, chest pain, tachypneic with RR 30-35. EKG reviewed , QRS is 94, however patient with tachycardia/AFlutter, RBB and slightly elevated T W in V3/V4 . Trop is negative Start bicarb drip. HR persistent in 130s will also gibe one bolus od cardizem. Consult cardiology. Consult centrifugal casting machine operator, as patient RR in 30s and might deteriorate and might need intubation. Spoke with centrifugal casting machine operator Maribel Rivera, appreciate recommendations. Patient is transfered to [facility]. Monitor lytes and replace. Phos low, replaced. K low replace. Bicarb improving will decrease rate. Will start po cardizem as patient with persistent tachycardia, will hols on BB for now due to respiratory issues to avoid bronchoconstriction. Patient might also have withdrawal will add ativan prn Altered mental status Acute encephalopathy likely 2/2 overdose TCA/ Benzos , now resolved and with withdrawals. - Monitor neuro checks -Patient moving extremities 4 spontaneously and also following commands, motor strength 5 over 5. Alert and oriented, back to her baseline. -Psychiatry also consulted Overdose - [facility]ison [facility] notified by ED. Called poison controlled. advices bicarb is arrhythmia - / Sodium bicarbonate discontinued - Serial labs - Telemetry -Repeat leather coater QRS 114->104ms decreased , NaHCO3 dc'd per recommendations of Poison Control - Restarted bicarb 07/10 as patient noted with arrhythmia Aflutter /tachy , QRS 94 Depression - See above Leukocytosis 2/2 Aspiration pneumonia. CXR with bilateral infiltrates -Noted WBC count 19.3 from 11, possible aspiration with self extubation. WBC trending down. Monitor CBC -On Levaquin 500 mg daily, added cefepime IV 2g q8h. Monitor. O2 supplement, duonebs, IS, add acapella, robitussin. CXR improving bilateral infiltrates. DVT GI prophylaxis - Teds SCDs - Pepcid BID Discussed with the patient, nurse, Dr Rivera centrifugal casting machine operator Patient is in [facility] as noted with arrhythmia. Also consulted centrifugal casting machine operator as her RR is [place] in > 30s and SOB, dessating on room air. Keep Osorio act until lifted by [facility] doctor. Jessica Brandt MD July 11, 2016 08:28
--- NOTE | 2016-07-11 08:29 | RADRPT ---
EXAM DATE/TIME: 07/11/2016 08:11 [facility] COMPARISON: CHEST SINGLE AP, July 10, 2016, 5:10. INDICATIONS : Short of breath. MEDICAL HISTORY : Hypertension. SURGICAL HISTORY : None. ENCOUNTER: Initial ACUITY: 2 days PAIN SCORE: 0/10 LOCATION: Bilateral chest FINDINGS: A single view of the chest demonstrates slight interstitial prominence along the lower lobes. Heart n ormal in size. Mediastinum unremarkable. The cardiomediastinal contours are unremarkable. Osseous st ructures are intact. CONCLUSION: Slight interstitial prominence along the lower lobes, unchanged. Lazarus Davila MD on July 11, 2016 at 8:25 Board Certified Radiologist. This report was verified electronically.
[2016-07-11] MEDS: HEPARIN SODIUM - SQ 10,000 UNITS/ML VIAL SQ SCH ×2 (08:46→21:28)
[2016-07-11] MEDS ORDERED: PANTOPRAZOLE SODIUM 40 MG VIAL IV SCH (09:00)
[2016-07-11] MEDS: guaiFENesin E.R. 600 MG TAB PO SCH ×2 (09:37→21:27)
[2016-07-11] MEDS: LORazepam 0.5 MG TAB PO PRN ×2 (09:37→16:41)
[2016-07-11] MEDS: DILTIAZEM HCL 30 MG TAB PO SCH ×2 (09:37→16:41)
--- NOTE | 2016-07-11 11:13 | EKG ---
Date Performed: 07/11/2016 Time Performed: 05:39:20 PTAGE: 46 years EKG: Sinus tachycardia rSr'(V1) - probable normal variant Possible anterior infarct - age undete rmined Abnormal ECG PREVIOUS TRACING : 07/10/2016 09.43 DOCTOR: Tr Camacho Interpretating Date/Time 07/11/2016 11:12:05
--- NOTE | 2016-07-11 16:38 | HHI.PR ---
Subjective Remarks Feeling ok Objective Vital Signs Date Time Temp Pulse Resp B/P Pulse Ox O2 Delivery O2 Flow Rate FiO2 07/11/16 16:00 119 07/11/16 16:00 98.6 119 24 141/97 93 07/11/16 15:00 120 07/11/16 14:00 120 07/11/16 13:00 114 07/11/16 12:00 99.1 121 19 141/98 93 07/11/16 12:00 118 07/11/16 11:00 118 07/11/16 10:43 94 Nasal Cannula 3.00 07/11/16 10:00 120 07/11/16 09:00 126 07/11/16 08:00 118 07/11/16 08:00 99.6 119 19 142/86 94 07/11/16 07:00 124 07/11/16 05:01 99.0 126 22 127/87 90 07/11/16 05:00 122 07/11/16 04:00 120 07/11/16 03:00 122 07/11/16 02:00 120 07/11/16 01:28 98.6 120 22 152/91 94 07/11/16 01:00 126 07/11/16 00:00 122 07/10/16 23:00 119 07/10/16 22:00 114 07/10/16 21:36 98.4 113 28 140/95 94 07/10/16 21:00 116 07/10/16 20:00 118 07/10/16 19:00 116 07/10/16 18:00 118 07/10/16 17:00 116 I/O 07/10/16 07/10/16 07/10/16 07/11/16 07/11/16 07/11/16 07:00 15:00 23:00 07:00 15:00 23:00 Intake Total 60 ml 1890 ml 420 ml 1375 ml Output Total 1000 ml 900 ml 1575 ml 2150 ml Balance -940 ml 990 ml -1155 ml -775 ml Intake Oral 60 ml 540 ml 420 ml 600 ml IV Total 1350 ml 775 ml Output Urine Total 1000 ml 900 ml 1575 ml 2150 ml # Bowel Movements 0 0 0 0 Result Diagram: 07/11/16 0556 07/11/16 1305 Imaging Alert, fully oriented, anxious Lungs: ventilated Heart: S1, S2 regular, tachycardia Abdomen: soft, no mass Ext: no edema Current Medications Medications (Trade) Dose Ordered Sig/Srinath Route Start Time Stop Time Status Last Admin (NS Flush) 2 ml UNSCH PRN .XX 07/06/16 04:45 07/11/16 08:02 (Pepcid Inj) 20 mg Q12HR IV PUSH 07/06/16 09:00 07/11/16 08:01 (Tears Naturale Opth Soln) 1 drop TID EACH EYE 07/06/16 09:00 07/11/16 08:02 (Zofran Inj) 4 mg Q6H PRN IV 07/06/16 04:45 (Reglan Inj) 10 mg Q6H PRN IV 07/06/16 04:45 (NovoLOG SUPPLEMENTAL SCALE) 1 Q6HR SQ 07/06/16 12:00 07/10/16 23:19 (D50w (Vial) Inj) 25 ml UNSCH PRN IV 07/06/16 11:30 Glucagon 1 mg 1 mg UNSCH PRN IM/SQ 07/06/16 11:30 Levofloxacin/ Dextrose 100 ml @ 100 mls/hr Q24H IV 07/08/16 09:00 07/11/16 08:02 (Maxipime Inj/NS Inj) 100 ml @ 200 mls/hr Q8H IV 07/10/16 05:00 07/11/16 13:22 (Colace) 100 mg BID PO 07/10/16 21:00 07/11/16 08:01 (Dulcolax Ec) 10 mg DAILY PRN PO 07/10/16 12:00 Miscellaneous Information 1 Q361D XX 07/10/16 12:00 07/10/16 12:00 (Chlorhexidine 2% Cloth) 3 pack Taper DAILY@04 TOP 07/11/16 04:00 07/07/17 03:59 Chlorhexidine Gluconate 3 pack 3 pack UNSCH PRN TOP 07/10/16 12:00 Potassium Chloride 100 ml @ 50 mls/hr Q2H PRN IV 07/10/16 12:00 (KCl 20 Meq Premix Inj) 100 ml @ 50 mls/hr Q2H PRN IV 07/10/16 12:00 Potassium Bicarb/ Potassium Chloride 50 meq 50 meq UNSCH PRN PO 07/10/16 12:00 Potassium Chloride 100 ml @ 25 mls/hr UNSCH PRN IV 07/10/16 12:00 Potassium Chloride 100 ml @ 50 mls/hr Q2H PRN IV 07/10/16 12:00 (Magnesium Sulfate Inj/NS Inj) 100 ml @ 50 mls/hr UNSCH PRN IV 07/10/16 12:00 Magnesium Oxide 800 mg 800 mg UNSCH PRN PO 07/10/16 12:00 (Magnesium Sulfate Inj/NS Inj) 100 ml @ 50 mls/hr UNSCH PRN IV 07/10/16 12:00 Potassium Phosphate 2000 mg 2,000 mg Q4H PRN PO 07/10/16 12:00 (Sodium Phosphate Inj/NS 250 ml Inj) 250 ml @ 42 mls/hr UNSCH PRN IV 07/10/16 12:00 Potassium Phosphate 2000 mg 2,000 mg UNSCH PRN PO/TUBE 07/10/16 12:00 Sodium Bicarbonate 150 meq/Dextrose 1,000 ml @ 50 mls/hr Q20H IV 07/10/16 13:00 07/11/16 08:02 Pharmacy Profile Note 0 ml @ 0 mls/hr UNSCH OTHER 07/10/16 12:45 (Vancomycin Inj/ NS 250 ml Inj) 262.5 ml @ 250 mls/hr Q12H IV 07/10/16 15:00 07/11/16 15:41 Miscellaneous Information SPECIFIC LAB TO BE LUCINDA... ONCE ONCE .XX 07/12/16 02:45 07/12/16 02:46 (K-Lyte Cl Eff) 25 meq Q12HR NG 07/11/16 09:00 07/11/16 08:01 (Heparin Inj) 5,000 units Q12HR SQ 07/11/16 09:00 07/11/16 08:46 (Cardizem) 30 mg Q8H PO 07/11/16 09:00 07/11/16 09:37 (Mucinex Er) 600 mg BID PO 07/11/16 09:00 07/11/16 09:37 (Ativan) 0.5 mg Q8H PRN PO 07/11/16 08:30 07/11/16 09:37 Assessment and Plan Problem List: (1) SVT (supraventricular tachycardia) Status: Acute Plan: In sinus tach. HR high Anxious No fever, no DVT Thyroid profile necessary Lizette Castro MD July 11, 2016 16:38
--- NOTE | 2016-07-11 16:44 | HHI.CCPN ---
Subjective Remarks/Hospital Course empty bottles of doxepin, Xanax, and a clonidine. On the arrival, the patient was noted to be a GCS of 3 although her vital signs were unremarkable. The patient reportedly had 2-10 second generalized chronic tonic seizures. The patient had clenching of her mouth and was intubated for airway protection. The patient was admitted to ICU 07/06/2016. She remained intubated for approximately 36 hours, on a sodium bicarbonate infusion, with EKG monitoring secondary to TCA overdose. Resolution of her QRS, lengthening, and metabolic acidosis occurred. On 07/08/19 a psychiatric consult was ordered and the patient was transferred to [facility]. Today a Halicat was called secondary to the patient being tachycardic with a heart rate in the 120s and sodium bicarbonate level dropped to 13. Of note the patient has a persistent leukocytosis. Blood, urine cultures were obtained the patient was placed on an air empiric antibiotics cefepime 2 g every [address] Brandt, critical care medicine's consult for management. Subjective: 07/11: The patient continues to be tachycardic, heart rate 120's, hemodynamically stable. Patient noted to have O2 saturation of 87% on room air, and 94% on 2 L nasal cannula. Upper and lower ultrasound venous Dopplers were obtained yesterday, resulted negative. Metabolic acidosis resolved , and the patient continues on sodium bicarbonate drip now decreased to 50 cc/an hour. Persistent leukocytosis, lactic acid within normal limits.The patient received a dose of Ativan last evening for anxiety. Objective Vital Signs Date Time Temp Pulse Resp B/P Pulse Ox O2 Delivery O2 Flow Rate FiO2 07/11/16 16:00 119 07/11/16 16:00 98.6 24 141/97 93 07/11/16 10:43 Nasal Cannula 3.00 07/08/16 04:07 35 Intake and Output 07/10/16 07/10/16 07/11/16 08:00 16:00 00:00 Intake Total 60 ml 1890 ml Output Total 1000 ml 900 ml Balance -940 ml 990 ml Result Diagram: 07/11/16 0556 07/11/16 1305 Imaging Last Impressions Chest X-Ray 07/10/16 0000 Signed Impressions: Service Date/Time: Sunday, July 10, 2016 05:10 - CONCLUSION: 1. Improving bibasilar densities. Lazarus Davila MD Head CT 07/06/16 0154 Signed Impressions: Service Date/Time: Wednesday, July 06, 2016 06:28 - CONCLUSION: 1. No evidence of acute intracranial pathology. No masses are identified. Cedric Aguilera MD Objective Remarks BP 142/64 P 123 94 % O2Sat GENERAL: Well-nourished, well-developed patient. Lying semi-recumbent in bed, in no distress , smiling, laughing and talking SKIN: Warm and dry. HEAD: Normocephalic. EYES: No scleral icterus. No injection or drainage. NECK: Supple, trachea midline. No JVD or lymphadenopathy. CARDIOVASCULAR: Regular rate and rhythm without murmurs, gallops, or rubs. RESPIRATORY: Breath sounds equal bilaterally. No accessory muscle use. nasal cannula GASTROINTESTINAL: Abdomen soft, non-tender, nondistended. MUSCULOSKELETAL: No cyanosis, or edema. BACK: Nontender without obvious deformity. No CVA tenderness. EXTREMITIES: No clubbing cyanosis or edema Date of Insertion: July 06, 2016 A/P Assessment and Plan Acute hypoxemic Respiratory failure-resolved Respiratory insufficiency Probable pneumonia secondary to initial inciting event (aspiration) or during self extubation - 07/06 Intubated for airway protection -07/07 Self extubation-reintubated or airway protection -07/08 extubation-transferred to medical floor -07/10 chest x-raybilateral basilar infiltrate -Bronchodilators 4 hours when necessary Altered mental status-resolved - Due to overdose - Monitor neuro checks per unit protocol -Patient moving extremities 4 spontaneously, following commands, 07/08 -Psychiatry following - Osorio Act in place Overdose - Poison Center notified by ED - 07/07 Sodium bicarbonate discontinued.07/07 Repeat security monitor QRS 114->104ms decreased , NaHCO3 dc'd per recommendations of Poison Control - Serial labs - Telemetry Sinus tachycardia -Cardiology consulted- Dr Pham -aleksandra management Procardia Persistent metabolic acidosis-resolved Hypokalemia secondary to bicarbonate infusion -Possibly secondary to an infectious process-presumed pneumonia -07/10 Decrease sodium bicarbonate infusion at 50cc/an hour, continue to monitor labs, supplement potassium BID, repeat level this afternoon -Monitor bicarbonate levels-no longer thought to be part of TCA overdose, and timeframe,discussed with poison control Depression - See above Sinus tachycardia Most likely secondary to infectious process bolus with 1 L of LR Monitor urine output Continue to monitor Obtain ultrasound bilateral upper and lower extremities Persistent Leukocytosis -WBC count 16 -Levaquin 500 mg daily, on for 2 days, cefepime started (day 2) -vancomycin (day 2) -Obtain lactate level, sepsis protocol -Bolus LR 1 L -Tylenol 650 mg for fever greater than 101 -5/7-cultures- NGTD DVT GI prophylaxis - Teds SCDs - Pepcid BID Begin heparin 5000 units SQ BID, begin PT OOB to chair, and ambulation Level 2 Plan transfer back to [facility], Dr. Brandt Discussed with Dr. Brandt and RN at bedside. Physician Maribel Mchugh MD July 11, 2016 16:44
[2016-07-11 18:03] LABS: FREE T3 3.32 PG/ML (2.18-3.98); FREE T4 1.62 NG/DL (0.76-1.46)
--- NOTE | 2016-07-11 19:01 | EC ---
Study Study Date:07/11/2016 STUDY CONCLUSIONS SUMMARY - Left ventricle: The cavity size was normal. Wall thickness was normal. Systolic function was normal. The estimated ejection fraction was in the range of 55% to 60%. Wall motion was normal; there were no regional wall motion abnormalities. - Mitral valve: Mild regurgitation. - Tricuspid valve: Mild regurgitation. - Pulmonary arteries: PA peak pressure: 42mm Hg (S). If LV function is below 40, please consider prescribing an ACEI or ARB or document rationale for non-use. PROCEDURE DATA STUDY STATUS: Elective. Procedure: Transthoracic echocardiography. Image quality was good. Scanning was performed from the parasternal, apical, and subcostal acoustic windows. Study completion: The patient tolerated the procedure well. Transthoracic echocardiography. M-mode, complete 2D, complete spectral Doppler, and color Doppler. Patient status: Inpatient. CARDIAC ANATOMY LEFT VENTRICLE: The cavity size was normal. Wall thickness was normal. Systolic function was normal. The estimated ejection fraction was in the range of 55% to 60%. Wall motion was normal; there were no regional wall motion abnormalities. AORTIC VALVE: Trileaflet; normal thickness leaflets. Doppler: Transvalvular velocity was within the normal range. There was no stenosis. No regurgitation. AORTA: Aortic root: The aortic root was normal in size. MITRAL VALVE: Structurally normal valve. Doppler: Transvalvular velocity was within the normal range. There was no evidence for stenosis. Mild regurgitation. LEFT ATRIUM: The atrium was normal in size. RIGHT VENTRICLE: The cavity size was normal. Wall thickness was normal. PULMONIC VALVE: Doppler: Transvalvular velocity was within the normal range. There was no evidence for stenosis. No regurgitation. TRICUSPID VALVE: Structurally normal valve. Doppler: Transvalvular velocity was within the normal range. Mild regurgitation. PULMONARY ARTERY: The main pulmonary artery was normal-sized. Systolic pressure was within the normal range. RIGHT ATRIUM: The atrium was normal in size. PERICARDIUM: There was no pericardial effusion. SYSTEMIC VEINS: Inferior vena cava: The vessel was normal in size. BASIC MEASUREMENTS ADULT Normal Left ventricle LV internal dimension, ED, chordal level, *36.5 mm 43-52 PLAX LV internal dimension, ES, chordal level, 27.5 mm 23-38 PLAX Fractional shortening, chordal level, PLAX *25 % >29 LV posterior wall thickness, ED 10.3 mm IVS/LVPW ratio, ED 1.11 <1.3 Ventricular septum Septal thickness, ED 11.4 mm Aortic valve Leaflet separation 22 mm 15-26 Right ventricle RV internal dimension, ED, PLAX 20.6 mm 19-38 BASIC MEASUREMENTS ADULT Normal Aortic valve Leaflet separation 22 mm 15-26 Aorta Root diameter, ED 31 mm 20-37 Left atrium Anterior-posterior dimension, ES 26 mm 19-40 LA/aortic root ratio 0.84 DOPPLER MEASUREMENTS ADULT Normal Main pulmonary artery Pressure, S *42 mm Hg =30 Tricuspid valve Regurgitant peak velocity 281 cm/s Peak RV-RA gradient, S 32 mm Hg Maximal regurgitant velocity 281 cm/s Systemic veins Estimated CVP 10 mm Hg Right ventricle RV pressure, S *42 mm Hg <30 LEGEND: Mean values are shown as u=mean value. Asterisk (*) arellano values outside specified normal range. Prepared and signed by Tr Camacho [id number]
[2016-07-12] VITALS (24 sets, daily range): BP systolic 128–138; BP diastolic 3–98; PULSE 103–124; RESP 18–24; TEMP 98–99.5; O2SAT 92–96
[2016-07-12] MEDS: LORazepam 0.5 MG TAB PO PRN ×2 (00:08→07:19)
[2016-07-12] MEDS: DILTIAZEM HCL 30 MG TAB PO SCH ×4 (00:08→23:57)
[2016-07-12] MEDS: INSULIN ASPART SUPPLEMENTAL SCALE SQ SCH ×5 (00:18→23:53)
[2016-07-12] MEDS ORDERED: PHARMACY ORDERED LAB ONE (02:45)
[2016-07-12] MEDS: VANCOMYCIN INJ 1,250 MG in SODIUM CHLOR 0.9% 250 ML INJ 250 ML IV SCH ×3 (04:05→22:07)
[2016-07-12 05:26] LABS: BASOPHIL # 0.2 TH/MM3 (0-0.2); BASOPHIL % 1.2 % (0.0-2.0); EOSINOPHIL # 0.2 TH/MM3 (0-0.4); EOSINOPHIL % 1.3 % (0.0-4.0); HEMO FLAGS DIFF FINAL; LYMPH % 16.4 % (9.0-44.0); LYMPHOCYTE # 2.2 TH/MM3 (1.0-4.8); MEAN CELL VOLUME 93.6 FL (80.0-100.0); MEAN CORPUSCULAR HEMOGLOBIN 31.5 PG (27.0-34.0); MEAN CORPUSCULAR HGB CONC 33.6 % (32.0-36.0); MONO % 8.4 % (0.0-8.0); NEUT % 72.7 % (16.0-70.0); PLATELET COUNT 234 TH/MM3 (150-450); RED BLOOD COUNT 4.06 MIL/MM3 (4.00-5.30); RED CELL DISTRIBUTION WIDTH 13.9 % (11.6-17.2); WHITE BLOOD COUNT 13.7 TH/MM3 (4.0-11.0)
[2016-07-12 05:55] LABS: ALKALINE PHOSPHATASE 107 U/L (45-117); ALT (GPT) 18 U/L (10-53); ANION GAP 10 MEQ/L (5-15); AST (GOT) 14 U/L (15-37); BLOOD UREA NITROGEN 7 MG/DL (7-18); CHLORIDE 101 MEQ/L (98-107); GLOMERULAR FILTRATION RATE 109 ML/MIN (>89); MAGNESIUM 1.9 MG/DL (1.5-2.5); SODIUM (NA) 142 MEQ/L (136-145); TOTAL BILIRUBIN ADULT 0.6 MG/DL (0.2-1.0)
[2016-07-12] MEDS: CEFEPIME INJ 2,000 MG in SODIUM CHLORIDE 0.9% INJ 100 ML IV SCH ×3 (05:57→22:08)
[2016-07-12 06:02] LABS: POTASSIUM 2.9 MEQ/L (3.5-5.1)
[2016-07-12] MEDS: SODIUM BICARBONATE 8.4% INJ 150 MEQ in DEXTROSE 5% IN WATE 1000ML INJ 850 ML IV SCH ×2 (06:02)
[2016-07-12] MEDS ORDERED: POTASSIUM CHLORIDE 20 MEQ CONTROLLED RELEASE TAB PO ONE (06:30)
[2016-07-12] MEDS ORDERED: POTASSIUM CHLOR 20 MEQ PREMIX 100 ML IV ONE (06:30)
--- NOTE | 2016-07-12 08:48 | PD.CARD.PN ---
Subjective Subjective Remarks Awake, alert, sitting up in bed, agitated because she cannot use the phone. Requiring a sitter due to Osorio act. Psychiatry following. Objective Medications Current Medications Medications (Trade) Dose Ordered Sig/Srinath Route Start Time Stop Time Status Last Admin (NS Flush) 2 ml UNSCH PRN .XX 07/06/16 04:45 07/11/16 08:02 (Pepcid Inj) 20 mg Q12HR IV PUSH 07/06/16 09:00 07/11/16 21:28 (Tears Naturale Opth Soln) 1 drop TID EACH EYE 07/06/16 09:00 07/11/16 08:02 (Zofran Inj) 4 mg Q6H PRN IV 07/06/16 04:45 (Reglan Inj) 10 mg Q6H PRN IV 07/06/16 04:45 (NovoLOG SUPPLEMENTAL SCALE) 1 Q6HR SQ 07/06/16 12:00 07/12/16 00:18 (D50w (Vial) Inj) 25 ml UNSCH PRN IV 07/06/16 11:30 Glucagon 1 mg 1 mg UNSCH PRN IM/SQ 07/06/16 11:30 Levofloxacin/ Dextrose 100 ml @ 100 mls/hr Q24H IV 07/08/16 09:00 07/11/16 08:02 (Maxipime Inj/NS Inj) 100 ml @ 200 mls/hr Q8H IV 07/10/16 05:00 07/12/16 05:57 (Colace) 100 mg BID PO 07/10/16 21:00 07/11/16 21:27 (Dulcolax Ec) 10 mg DAILY PRN PO 07/10/16 12:00 Miscellaneous Information 1 Q361D XX 07/10/16 12:00 07/10/16 12:00 (Chlorhexidine 2% Cloth) 3 pack Taper DAILY@04 TOP 07/11/16 04:00 07/07/17 03:59 Chlorhexidine Gluconate 3 pack 3 pack UNSCH PRN TOP 07/10/16 12:00 Potassium Chloride 100 ml @ 50 mls/hr Q2H PRN IV 07/10/16 12:00 (KCl 20 Meq Premix Inj) 100 ml @ 50 mls/hr Q2H PRN IV 07/10/16 12:00 Potassium Bicarb/ Potassium Chloride 50 meq 50 meq UNSCH PRN PO 07/10/16 12:00 Potassium Chloride 100 ml @ 25 mls/hr UNSCH PRN IV 07/10/16 12:00 Potassium Chloride 100 ml @ 50 mls/hr Q2H PRN IV 07/10/16 12:00 (Magnesium Sulfate Inj/NS Inj) 100 ml @ 50 mls/hr UNSCH PRN IV 07/10/16 12:00 Magnesium Oxide 800 mg 800 mg UNSCH PRN PO 07/10/16 12:00 (Magnesium Sulfate Inj/NS Inj) 100 ml @ 50 mls/hr UNSCH PRN IV 07/10/16 12:00 Potassium Phosphate 2000 mg 2,000 mg Q4H PRN PO 07/10/16 12:00 (Sodium Phosphate Inj/NS 250 ml Inj) 250 ml @ 42 mls/hr UNSCH PRN IV 07/10/16 12:00 Potassium Phosphate 2000 mg 2,000 mg UNSCH PRN PO/TUBE 07/10/16 12:00 Sodium Bicarbonate 150 meq/Dextrose 1,000 ml @ 50 mls/hr Q20H IV 07/10/16 13:00 07/12/16 06:02 Pharmacy Profile Note 0 ml @ 0 mls/hr UNSCH OTHER 07/10/16 12:45 (Vancomycin Inj/ NS 250 ml Inj) 262.5 ml @ 250 mls/hr Q12H IV 07/10/16 15:00 07/12/16 04:05 (K-Lyte Cl Eff) 25 meq Q12HR NG 07/11/16 09:00 07/11/16 21:27 (Heparin Inj) 5,000 units Q12HR SQ 07/11/16 09:00 07/11/16 21:28 (Cardizem) 30 mg Q8H PO 07/11/16 09:00 07/12/16 00:08 (Mucinex Er) 600 mg BID PO 07/11/16 09:00 07/11/16 21:27 (Ativan) 0.5 mg Q8H PRN PO 07/11/16 08:30 07/12/16 07:19 Vital Signs / I&O Vital Signs Date Time Temp Pulse Resp B/P Pulse Ox O2 Delivery O2 Flow Rate FiO2 07/12/16 05:34 107 07/12/16 04:00 98.8 110 22 138/89 96 07/12/16 04:00 116 07/12/16 03:00 113 07/12/16 02:00 116 07/12/16 01:00 118 07/12/16 00:00 99.0 122 24 130/89 96 07/12/16 00:00 116 07/11/16 23:00 124 07/11/16 20:00 99.5 120 20 113/80 96 07/11/16 19:00 120 07/11/16 18:00 124 07/11/16 17:00 118 07/11/16 16:00 119 07/11/16 16:00 98.6 119 24 141/97 93 07/11/16 15:00 120 07/11/16 14:00 120 07/11/16 13:00 114 07/11/16 12:00 99.1 121 19 141/98 93 07/11/16 12:00 118 07/11/16 11:00 118 07/11/16 10:43 94 Nasal Cannula 3.00 07/11/16 10:00 120 07/11/16 09:00 126 I/O 07/11/16 07/11/16 07/11/16 07/12/16 07/12/16 07/12/16 07:00 15:00 23:00 07:00 15:00 23:00 Intake Total 420 ml 1375 ml 1070 ml Output Total 1575 ml 2150 ml 1700 ml Balance -1155 ml -775 ml -630 ml Intake Oral 420 ml 600 ml 420 ml IV Total 775 ml 650 ml Output Urine Total 1575 ml 2150 ml 1700 ml # Bowel Movements 0 0 1 Physical Exam GENERAL: Well-nourished, well-developed patient. SKIN: Warm and dry. HEAD: Normocephalic. EYES: No scleral icterus. No injection or drainage. NECK: Supple, trachea midline. No JVD or lymphadenopathy. CARDIOVASCULAR: Tachycardic rate and regular rhythm without murmurs, gallops, or rubs. RESPIRATORY: Breath sounds equal, diminished bilaterally. No accessory muscle use. GASTROINTESTINAL: Abdomen soft, non-tender, nondistended. EXTREMITIES: No cyanosis, or edema. NEUROLOGICAL: Awake, alert, and oriented x 3. Non-focal. Laboratory Laboratory Tests Test 07/11/16 07/12/16 13:05 03:22 Potassium Level 3.1 MEQ/L 2.9 MEQ/L Free Thyroxine 1.62 NG/DL Free Triiodothyronine (T3) 3.32 PG/ML pg/dL Thyroid Stimulating Hormone 4.170 uIU/ML 3rd Gen White Blood Count 13.7 TH/MM3 Red Blood Count 4.06 MIL/MM3 Hemoglobin 12.8 GM/DL Hematocrit 38.0 % Mean Corpuscular Volume 93.6 FL Mean Corpuscular Hemoglobin 31.5 PG Mean Corpuscular Hemoglobin 33.6 % Concent Red Cell Distribution Width 13.9 % Platelet Count 234 TH/MM3 Mean Platelet Volume 10.5 FL Neutrophils (%) (Auto) 72.7 % Lymphocytes (%) (Auto) 16.4 % Monocytes (%) (Auto) 8.4 % Eosinophils (%) (Auto) 1.3 % Basophils (%) (Auto) 1.2 % Neutrophils # (Auto) 10.0 TH/MM3 Lymphocytes # (Auto) 2.2 TH/MM3 Monocytes # (Auto) 1.1 TH/MM3 Eosinophils # (Auto) 0.2 TH/MM3 Basophils # (Auto) 0.2 TH/MM3 CBC Comment DIFF FINAL Differential Comment Sodium Level 142 MEQ/L Chloride Level 101 MEQ/L Carbon Dioxide Level 31.0 MEQ/L Anion Gap 10 MEQ/L Blood Urea Nitrogen 7 MG/DL Creatinine 0.59 MG/DL Estimat Glomerular Filtration 109 ML/MIN Rate Random Glucose 123 MG/DL Calcium Level 9.2 MG/DL Magnesium Level 1.9 MG/DL Total Bilirubin 0.6 MG/DL Aspartate Amino Transf 14 U/L (AST/SGOT) Alanine Aminotransferase 18 U/L (ALT/SGPT) Alkaline Phosphatase 107 U/L Total Protein 7.5 GM/DL Albumin 3.0 GM/DL Vancomycin Level Trough 7.0 MCG/ML Imaging Last Impressions Chest X-Ray 07/11/16 0000 Signed Impressions: Service Date/Time: Monday, July 11, 2016 08:11 - CONCLUSION: Slight interstitial prominence along the lower lobes, unchanged. Lazarus Davila MD Upper Extremity Ultrasound 07/10/16 0000 Signed Impressions: Service Date/Time: Sunday, July 10, 2016 17:02 - CONCLUSION: 1. Superficial thrombus in the cephalic veins bilaterally. No deep venous thrombosis. Marco Antonio Rhoades MD Lower Extremity Ultrasound 07/10/16 0000 Signed Impressions: Service Date/Time: Sunday, July 10, 2016 16:44 - CONCLUSION: Normal examination. Marco Antonio Rhoades MD Head CT 07/06/16 0154 Signed Impressions: Service Date/Time: Wednesday, July 06, 2016 06:28 - CONCLUSION: 1. No evidence of acute intracranial pathology. No masses are identified. Cedric Aguilera MD Assessment and Plan Problem List: (1) SVT (supraventricular tachycardia) Assessment and Plan: Remains tachycardic on low-dose Cardizem. No beta emerson used due to risk of bronchospasm. Receiving when necessary Ativan for possible withdrawal symptoms. TSH mildly elevated, T4 mildly elevated, no evidence of significant thyroid contribution to her tachycardia. Continue current therapy per my discussion with Dr. Castro. (2) Intentional overdose of drug in tablet form Assessment and Plan: Psychiatry following. She remains under Osorio act with mateus. Ruthie Peterson July 12, 2016 08:48
[2016-07-12] MEDS: ARTIFICIAL TEARS OPTH SOLN 15 ML BTL EACH EYE SCH ×3 (09:00→18:22)
[2016-07-12] MEDS: POTASSIUM CHLORIDE 25 MEQ EFFERVESCENT TAB NG SCH ×2 (09:10→22:12)
[2016-07-12] MEDS: DOCUSATE SODIUM 100 MG CAP PO SCH ×2 (09:11→21:00)
[2016-07-12] MEDS: guaiFENesin E.R. 600 MG TAB PO SCH ×2 (09:11→22:11)
[2016-07-12] MEDS: LEVOFLOXACIN 500 MG PREMIX INJ 100 ML IV SCH (09:11)
[2016-07-12] MEDS: FAMOTIDINE 20 MG/2 ML VIAL IV PUSH SCH ×2 (09:11→22:15)
[2016-07-12] MEDS: HEPARIN SODIUM - SQ 10,000 UNITS/ML VIAL SQ SCH ×2 (09:11→22:14)
--- NOTE | 2016-07-12 10:19 | HHI.PR ---
Subjective Remarks Patient in bed, she is noted anxious, pulled all IVs. The patient is crying, she is pulling on IVs and says she is calm. Feels very anxious. Denies chest pain at this time. No sob. Did not eat much . No fever or chills. Objective Vitals Vital Signs Date Time Temp Pulse Resp B/P Pulse Ox O2 Delivery O2 Flow Rate FiO2 07/12/16 08:00 116 20 132/91 93 07/12/16 05:34 107 07/12/16 04:00 98.8 110 22 138/89 96 07/12/16 04:00 116 07/12/16 03:00 113 07/12/16 02:00 116 07/12/16 01:00 118 07/12/16 00:00 99.0 122 24 130/89 96 07/12/16 00:00 116 07/11/16 23:00 124 07/11/16 20:00 99.5 120 20 113/80 96 07/11/16 19:00 120 07/11/16 18:00 124 07/11/16 17:00 118 07/11/16 16:00 119 07/11/16 16:00 98.6 119 24 141/97 93 07/11/16 15:00 120 07/11/16 14:00 120 07/11/16 13:00 114 07/11/16 12:00 99.1 121 19 141/98 93 07/11/16 12:00 118 07/11/16 11:00 118 07/11/16 10:43 94 Nasal Cannula 3.00 I/O 07/11/16 07/11/16 07/11/16 07/12/16 07/12/16 07/12/16 07:00 15:00 23:00 07:00 15:00 23:00 Intake Total 420 ml 1375 ml 1070 ml Output Total 1575 ml 2150 ml 1700 ml Balance -1155 ml -775 ml -630 ml Intake Oral 420 ml 600 ml 420 ml IV Total 775 ml 650 ml Output Urine Total 1575 ml 2150 ml 1700 ml # Bowel Movements 0 0 1 # Sanitary Pads 1 Pads Result Diagram: 07/12/16 0322 07/12/16 0322 Imaging Last Impressions Chest X-Ray 07/11/16 0000 Signed Impressions: Service Date/Time: Monday, July 11, 2016 08:11 - CONCLUSION: Slight interstitial prominence along the lower lobes, unchanged. Lazarus Davila MD Upper Extremity Ultrasound 07/10/16 0000 Signed Impressions: Service Date/Time: Sunday, July 10, 2016 17:02 - CONCLUSION: 1. Superficial thrombus in the cephalic veins bilaterally. No deep venous thrombosis. Marco Antonio Rhoades MD Lower Extremity Ultrasound 07/10/16 0000 Signed Impressions: Service Date/Time: Sunday, July 10, 2016 16:44 - CONCLUSION: Normal examination. Marco Antonio Rhoades MD Head CT 07/06/16 0154 Signed Impressions: Service Date/Time: Wednesday, July 06, 2016 06:28 - CONCLUSION: 1. No evidence of acute intracranial pathology. No masses are identified. Cedric Aguilera MD Objective Remarks GENERAL: Well-nourished, well-developed patient. Lying semi-recumbent in bed, in no apparent distress SKIN: Warm and dry. HEAD: Normocephalic. EYES: No scleral icterus. No injection or drainage. NECK: Supple, trachea midline. No JVD or lymphadenopathy. CARDIOVASCULAR: Regular rate and rhythm without murmurs, gallops, or rubs. RESPIRATORY: Breath sounds equal bilaterally. No accessory muscle use. GASTROINTESTINAL: Abdomen soft, non-tender, nondistended. MUSCULOSKELETAL: No cyanosis, or edema. BACK: Nontender without obvious deformity. No CVA tenderness. Date of Insertion: July 06, 2016 A/P Assessment and Plan Acute hypoxemic Respiratory failure - Intubated for airway protection -/ Self extubation-reintubated for airway protection and poss aspiration PNA when she self extubated -07/08 extubation -Bronchodilators when necessary - Satting well on nasal canula at this time, dessating on room air TCA related arrhythmia: Hypokalemia Hypophosphatemia Low bicarb ( drop at 12 07/10/16) , patient is also symptomatic tachycardic HR in 120-130s sustained sob, chest pain, tachypneic with RR 30-35. EKG reviewed , QRS is 94, however patient with tachycardia/AFlutter, RBB and slightly elevated T W in V3/V4 . Trop is negative Start bicarb drip. HR persistent in 130s will also gibe one bolus od cardizem. Consult cardiology. Consult automotive service consultant, as patient RR in 30s and might deteriorate and might need intubation. Spoke with automotive service consultant Maribel Rivera, appreciate recommendations. Patient was transferred to [facility]. Monitor lytes and replace. Bicarb improving decrease rate and DC when normal. Will start po cardizem as patient with persistent tachycardia, will hold on BB for now due to respiratory issues to avoid bronchoconstriction. Patient also have withdrawal increased ativan prn . Reconsult psychiatry for evaluation. Patient is more agitated Altered mental status Acute encephalopathy likely 2/2 overdose TCA/ Benzos , now resolved and with withdrawals. - Monitor neuro checks -Patient moving extremities 4 spontaneously and also following commands, motor strength 5 over 5. Alert and oriented, back to her baseline. -Psychiatry also consulted Overdose - Poison Center notified by ED. Called poison controlled. advices bicarb is arrhythmia - 07/07 Sodium bicarbonate discontinued - Serial labs - Telemetry -Repeat baller tender QRS 114->104ms decreased , NaHCO3 dc'd per recommendations of Poison Control - Restarted bicarb 07/10 as patient noted with arrhythmia Aflutter /tachy , QRS 94 Depression - See above Leukocytosis 2/2 Aspiration pneumonia. CXR with bilateral infiltrates -Noted WBC count 19.3 from 11, possible aspiration with self extubation. WBC trending down. Monitor CBC -On Levaquin 500 mg daily, added cefepime IV 2g q8h. Monitor. O2 supplement, duonebs, IS, add acapella, robitussin. CXR improving bilateral infiltrates. DVT GI prophylaxis - Teds SCDs - Pepcid BID Discussed with the patient, nurse, Dr Rivera automotive service consultant Patient is in [facility] as noted with arrhythmia. Also consulted automotive service consultant as her RR is [place] in > 30s and SOB, dessating on room air. Keep Osorio act until lifted by [facility] doctor. Jessica Barndt MD July 12, 2016 10:19
[2016-07-12] MEDS ORDERED: POTASSIUM CHLORIDE 10 MEQ CONTROLLED RELEASE TAB PO ONE (10:30)
[2016-07-12] MEDS ORDERED: MAGNESIUM OXIDE 400 MG TAB PO ONE (10:30)
[2016-07-12] MEDS: POTASSIUM CHLOR 20 MEQ PREMIX 100 ML IV SCH ×2 (10:49→12:14)
[2016-07-12] MEDS ORDERED: LORazepam 0.5 MG TAB PO PRN (12:00)
[2016-07-12] MEDS ORDERED: LORazepam 2 MG TAB PO PRN (12:45)
[2016-07-12] MEDS ORDERED: QUEtiapine FUMARATE 25 MG TAB PO SCH (12:45)
[2016-07-12] MEDS ORDERED: LORazepam 2 MG/ML VIAL IV PUSH PRN ×3 (12:45)
--- NOTE | 2016-07-12 13:02 | HHI.PYPN ---
Subjective Remarks Patient was seen for psychiatric reevaluation alone with nurse in charge Carlota, patient was seen initially by Dr. Hernadez, his document patient was carefully reviewed, patient was found restrained in two points. She is cooperative, but restless. Patient says that she doesn't remember the reason she is in the hospital, she says that she has been taking her medication as prescribed. She takes Xanax 2 mg 3 times per day, doxepin 100 mg, clonidine 0.[address] Joyner. Patient is oriented 3, she has moments of confusion and lability. She reports good mood, she denies suicidal and homicidal ideation, she denies visual and auditory hallucinations. At some point in the interview he seems to be internally preoccupied and agitated. As per nurses patient has been disorganized, agitated, trying to laeve the room, difficult to redirect. Review of Systems Constitutional: DENIES: Diaphoretic episodes, Fatigue, Fever, Weight gain, Weight loss, Chills, Dizziness, Change in appetite, Night Sweats Endocrine: DENIES: Abnorml menstrual pattern, Heat/cold intolerance, Polydipsia , Polyuria, Polyphagia Ears, nose, mouth, throat: DENIES: Tinnitus, Hearing loss, Vertigo, Nasal discharge, Oral lesions, Throat pain, Hoarseness, Ear Pain, Running Nose, Epistaxis, Sinus Pain, Toothache, Odynophagia Respiratory: DENIES: Apneas, Cough, Snoring, Wheezing, Hemoptysis, Sputum production, Shortness of breath Cardiovascular: DENIES: Chest pain, Palpitations, Syncope, Dyspnea on Exertion , PND, Lower Extremity Edema, Orthopnea, Claudication Gastrointestinal: DENIES: Abdominal pain, Black stools, Bloody stools, Constipation, Diarrhea, Nausea, Vomiting, Difficulty Swallowing, Anorexia Genitourinary: DENIES: Abnormal vaginal bleeding, Dysmenorrhea, Dyspareunia, Sexual dysfunction, Urinary frequency, Urinary incontinence, Urgency, Hematuria , Dysuria, Nocturia, Vaginal discharge Musculoskeletal: DENIES: Joint pain, Muscle aches, Stiffness, Joint Swelling, Back pain, Neck pain Integumentary: DENIES: Abnormal pigmentation, Pruritus, Rash, Nail changes, Breast masses, Breast skin changes, Nipple discharge Hematologic/lymphatic: DENIES: Bruising, Lymphadenopathy Immunologic/allergic: DENIES: Eczema, Urticaria Neurologic: DENIES: Abnormal gait, Headache, Localized weakness, Paresthesias, Seizures, Speech Problems, Tremor, Poor Balance Objective Alert: Yes [place]: Person, Place, Date Mood: Calm Affect: Labile Memory Intact: Immediate Hallucinations: Other (she denies) Delusions: No (not elicited) Delusion Type: Other (none) Suicidal: Ideation (she denies) Homicidal: Ideation (she denies) Insight/Judgment Poor Labs Test 07/11/16 07/12/16 13:05 03:22 Potassium Level 3.1 MEQ/L 2.9 MEQ/L Free Thyroxine 1.62 NG/DL Free Triiodothyronine (T3) 3.32 PG/ML pg/dL Thyroid Stimulating Hormone 4.170 uIU/ML 3rd Gen White Blood Count 13.7 TH/MM3 Red Blood Count 4.06 MIL/MM3 Hemoglobin 12.8 GM/DL Hematocrit 38.0 % Mean Corpuscular Volume 93.6 FL Mean Corpuscular Hemoglobin 31.5 PG Mean Corpuscular Hemoglobin 33.6 % Concent Red Cell Distribution Width 13.9 % Platelet Count 234 TH/MM3 Mean Platelet Volume 10.5 FL Neutrophils (%) (Auto) 72.7 % Lymphocytes (%) (Auto) 16.4 % Monocytes (%) (Auto) 8.4 % Eosinophils (%) (Auto) 1.3 % Basophils (%) (Auto) 1.2 % Neutrophils # (Auto) 10.0 TH/MM3 Lymphocytes # (Auto) 2.2 TH/MM3 Monocytes # (Auto) 1.1 TH/MM3 Eosinophils # (Auto) 0.2 TH/MM3 Basophils # (Auto) 0.2 TH/MM3 CBC Comment DIFF FINAL Differential Comment Sodium Level 142 MEQ/L Chloride Level 101 MEQ/L Carbon Dioxide Level 31.0 MEQ/L Anion Gap 10 MEQ/L Blood Urea Nitrogen 7 MG/DL Creatinine 0.59 MG/DL Estimat Glomerular Filtration 109 ML/MIN Rate Random Glucose 123 MG/DL Calcium Level 9.2 MG/DL Magnesium Level 1.9 MG/DL Total Bilirubin 0.6 MG/DL Aspartate Amino Transf 14 U/L (AST/SGOT) Alanine Aminotransferase 18 U/L (ALT/SGPT) Alkaline Phosphatase 107 U/L Total Protein 7.5 GM/DL Albumin 3.0 GM/DL Vancomycin Level Trough 7.0 MCG/ML Date/Time Procedure Status Source Growth 07/10/16 23:30 Gram Stain - Final Complete Sputum Expectorated Sputum 07/10/16 23:30 Sputum Culture - Final Complete Sputum Expectorated Sputum HEAVY GROWTH NORMAL RESPIRATORY SERAFIN 07/10/16 06:20 Aerobic Blood Culture - Preliminary Resulted Blood Peripheral NO GROWTH IN 2 DAYS 07/10/16 06:20 Anaerobic Blood Culture - Preliminary Resulted Blood Peripheral NO GROWTH IN 2 DAYS 07/10/16 04:20 Urine Culture - Preliminary Resulted Urine Catheterized Urine Group D Enterococcus Vitals/IOs Vital Signs Date Time Temp Pulse Resp B/P Pulse Ox O2 Delivery O2 Flow Rate FiO2 07/12/16 12:31 98.0 111 20 128/98 92 07/12/16 11:05 Nasal Cannula 2.50 Intake and Output 07/11/16 07/11/16 07/11/16 07:59 15:59 23:59 Intake Total 420 ml 1375 ml Output Total 1575 ml 2150 ml Balance -1155 ml -775 ml Assessment & Plan Problem List: (1) Delirium due to another medical condition Assessment & Plan: Patient continues to be confused, labile, agitated, at times aggressive and difficult to redirect. However, patient is oriented 3, she reports good mood, denies suicidal and homicidal ideation. I had impression that the patient was abusing her psychotropics, especially benzodiazepines. Benzodiazepine withdrawal could be part of the etiology, alone with delirium due to underlying medical conditions, of current presentation. Will order CIWA protocol. Will start longer acting benzodiazepine , clonazepam 1 mg 3 times a day. Also Seroquel 50 mg twice a day for behavior control. We'll continue follow-up. ICD Code: F05 Assessment & Plan Estimated LOS: days Justification for Cont. Inpt. Patient does not meet criteria for psychiatric admission at this moment. Uche Arenas MD July 12, 2016 13:02
[2016-07-12] MEDS: clonazePAM 1 MG TAB PO SCH ×2 (14:21→22:14)
[2016-07-12 20:03] LABS: BICARBONATE 28.2 MEQ/L (21.0-32.0); POTASSIUM 3.9 MEQ/L (3.5-5.1)
[2016-07-12] MEDS: POTASSIUM CHLORIDE 20 MEQ CONTROLLED RELEASE TAB PO SCH (22:14)
[2016-07-12] MEDS: risperiDONE 1 MG TAB PO SCH (22:14)
[2016-07-12] MEDS: LORazepam 2 MG/ML VIAL IV PUSH PRN (22:40)
[2016-07-13] VITALS (21 sets, daily range): BP systolic 100–125; BP diastolic 61–82; PULSE 98–124; RESP 17–22; TEMP 97.3–99.5; O2SAT 93–96
[2016-07-13] MEDS: SODIUM BICARBONATE 8.4% INJ 150 MEQ in DEXTROSE 5% IN WATE 1000ML INJ 850 ML IV SCH ×4 (03:08→21:44)
[2016-07-13] MEDS: VANCOMYCIN INJ 1,250 MG in SODIUM CHLOR 0.9% 250 ML INJ 250 ML IV SCH ×2 (03:08→11:20)
[2016-07-13] MEDS: CHLORHEXIDINE GLUCONATE 2 % 1 PACK (2 CLOTHS) TOP SCH (04:00)
[2016-07-13] MEDS: INSULIN ASPART SUPPLEMENTAL SCALE SQ SCH ×3 (04:17→17:10)
[2016-07-13] MEDS: clonazePAM 1 MG TAB PO SCH ×3 (04:19→21:43)
[2016-07-13] MEDS: CEFEPIME INJ 2,000 MG in SODIUM CHLORIDE 0.9% INJ 100 ML IV SCH ×3 (04:20→19:41)
[2016-07-13 06:14] LABS: AUTOMATED NEUTROPHIL # 8.7 TH/MM3 (1.8-7.7); BASOPHIL # 0.2 TH/MM3 (0-0.2); BASOPHIL % 1.1 % (0.0-2.0); EOSINOPHIL # 0.4 TH/MM3 (0-0.4); EOSINOPHIL % 2.8 % (0.0-4.0); HEMATOCRIT 37.7 % (35.0-46.0); HEMO FLAGS DIFF FINAL; LYMPH % 24.5 % (9.0-44.0); LYMPHOCYTE # 3.4 TH/MM3 (1.0-4.8); MEAN CELL VOLUME 94.9 FL (80.0-100.0); MEAN CORPUSCULAR HEMOGLOBIN 31.1 PG (27.0-34.0); MEAN CORPUSCULAR HGB CONC 32.7 % (32.0-36.0); MONO % 8.4 % (0.0-8.0); NEUT % 63.2 % (16.0-70.0); PLATELET COUNT 227 TH/MM3 (150-450); RED BLOOD COUNT 3.97 MIL/MM3 (4.00-5.30); RED CELL DISTRIBUTION WIDTH 13.9 % (11.6-17.2); WHITE BLOOD COUNT 13.7 TH/MM3 (4.0-11.0)
[2016-07-13 06:37] LABS: BICARBONATE 27.9 MEQ/L (21.0-32.0); POTASSIUM 3.9 MEQ/L (3.5-5.1)
[2016-07-13] MEDS: HEPARIN SODIUM - SQ 10,000 UNITS/ML VIAL SQ SCH ×2 (08:30→19:40)
[2016-07-13] MEDS: ARTIFICIAL TEARS OPTH SOLN 15 ML BTL EACH EYE SCH ×3 (08:30→17:10)
[2016-07-13] MEDS: POTASSIUM CHLORIDE 25 MEQ EFFERVESCENT TAB NG SCH ×2 (08:30→19:40)
[2016-07-13] MEDS: LEVOFLOXACIN 500 MG PREMIX INJ 100 ML IV SCH (08:30)
[2016-07-13] MEDS: FAMOTIDINE 20 MG/2 ML VIAL IV PUSH SCH ×2 (08:30→19:40)
[2016-07-13] MEDS: guaiFENesin E.R. 600 MG TAB PO SCH ×2 (08:31→19:40)
[2016-07-13] MEDS: DILTIAZEM HCL 30 MG TAB PO SCH ×2 (08:31→15:33)
[2016-07-13] MEDS: DOCUSATE SODIUM 100 MG CAP PO SCH ×2 (08:31→19:41)
[2016-07-13] MEDS: risperiDONE 1 MG TAB PO SCH ×2 (08:31→19:40)
[2016-07-13] MEDS: POTASSIUM CHLORIDE 20 MEQ CONTROLLED RELEASE TAB PO SCH ×2 (08:31→19:40)
[2016-07-13] MEDS: LORazepam 1 MG TAB PO PRN ×2 (09:39→15:33)
[2016-07-13] MEDS ORDERED: PHARMACY ORDERED LAB ONE (11:45)
--- NOTE | 2016-07-13 14:38 | HHI.PR ---
Subjective Remarks Seen earlier today. Patient is more awake and alert. She is less agitated, off restraints. She is however complaining of LE pain and says she has neuropathy. Says she is improving and she is less anxious and less chest pain, sob, or palpitations. No cough. No efevr or chills. Objective Vitals Vital Signs Date Time Temp Pulse Resp B/P Pulse Ox O2 Delivery O2 Flow Rate FiO2 07/13/16 12:00 97.3 114 22 125/73 95 07/13/16 12:00 104 07/13/16 11:00 108 07/13/16 10:00 112 07/13/16 09:30 95 Nasal Cannula 2.00 07/13/16 09:00 112 07/13/16 08:46 97.9 113 22 114/82 93 07/13/16 08:00 98 07/13/16 07:00 98 07/13/16 06:00 99 07/13/16 05:00 102 07/13/16 04:00 99.0 119 18 112/68 95 07/13/16 04:00 103 07/13/16 03:00 114 07/13/16 02:00 110 07/13/16 01:00 112 07/13/16 00:00 108 07/13/16 00:00 99.2 117 18 107/75 95 07/12/16 23:00 116 07/12/16 22:00 112 07/12/16 21:00 118 07/12/16 20:58 Nasal Cannula 2.00 07/12/16 20:00 99.5 113 18 132/86 94 07/12/16 20:00 114 07/12/16 18:00 118 07/12/16 17:00 118 07/12/16 16:00 110 07/12/16 16:00 99.0 111 18 129/3 93 07/12/16 15:00 103 I/O 07/12/16 07/12/16 07/12/16 07/13/16 07/13/16 07/13/16 07:00 15:00 23:00 07:00 15:00 23:00 Intake Total 1070 ml 1985 ml 480 ml Output Total 1700 ml 2250 ml 450 ml Balance -630 ml -265 ml 30 ml Intake Oral 420 ml 500 ml 480 ml IV Total 650 ml 1485 ml Output Urine Total 1700 ml 2250 ml 450 ml # Bowel Movements 1 1 2 # Sanitary Pads 1 Pads 1 Pads 1 Pads Result Diagram: 07/13/16 0546 07/13/16 0546 Imaging Last Impressions Chest X-Ray 07/11/16 0000 Signed Impressions: Service Date/Time: Monday, July 11, 2016 08:11 - CONCLUSION: Slight interstitial prominence along the lower lobes, unchanged. Lazarus Davila MD Upper Extremity Ultrasound 07/10/16 0000 Signed Impressions: Service Date/Time: Sunday, July 10, 2016 17:02 - CONCLUSION: 1. Superficial thrombus in the cephalic veins bilaterally. No deep venous thrombosis. Marco Antonio Rhoades MD Lower Extremity Ultrasound 07/10/16 0000 Signed Impressions: Service Date/Time: Sunday, July 10, 2016 16:44 - CONCLUSION: Normal examination. Marco Antonio Rhoades MD Head CT 07/06/16 0154 Signed Impressions: Service Date/Time: Wednesday, July 06, 2016 06:28 - CONCLUSION: 1. No evidence of acute intracranial pathology. No masses are identified. Cedric Aguilera MD Objective Remarks GENERAL: Well-nourished, well-developed patient. Lying semi-recumbent in bed, in no apparent distress SKIN: Warm and dry. HEAD: Normocephalic. EYES: No scleral icterus. No injection or drainage. NECK: Supple, trachea midline. No JVD or lymphadenopathy. CARDIOVASCULAR: Regular rate and rhythm without murmurs, gallops, or rubs. RESPIRATORY: Breath sounds equal bilaterally. No accessory muscle use. GASTROINTESTINAL: Abdomen soft, non-tender, nondistended. MUSCULOSKELETAL: No cyanosis, or edema. BACK: Nontender without obvious deformity. No CVA tenderness. Date of Insertion: July 06, 2016 A/P Assessment and Plan Acute hypoxemic Respiratory failure - Intubated for airway protection -07/07 Self extubation-reintubated for airway protection and poss aspiration PNA when she self extubated -07/08 extubation -Bronchodilators when necessary - Satting well on nasal canula at this time, dessating on room air TCA related arrhythmia Hypokalemia Hypophosphatemia Low bicarb ( drop at 12 07/10/16) , patient is also symptomatic tachycardic HR in 120-130s sustained sob, chest pain, tachypneic with RR 30-35. EKG reviewed , QRS is 94, however patient with tachycardia/AFlutter, RBB and slightly elevated T W in V3/V4 . Trop is negative Start bicarb drip. HR persistent in 130s will also gibe one bolus od cardizem. Consult cardiology. Consult manager intranet, as patient RR in 30s and might deteriorate and might need intubation. Spoke with manager intranet Maribel Rivera, appreciate recommendations. Patient was transferred to PS[facility]. Monitor lytes and replace. Bicarb improving decrease rate and DC when normal. Will start po cardizem as patient with persistent tachycardia, will hold on BB for now due to respiratory issues to avoid bronchoconstriction. Patient also have withdrawal increased ativan prn . Reconsult psychiatry for evaluation as patient was more agitated and required restraints. Seen by psych. Start CIWA Altered mental status Acute encephalopathy likely 2/2 overdose TCA/ Benzos , now resolved and with withdrawals. - Monitor neuro checks -Patient moving extremities 4 spontaneously and also following commands, motor strength 5 over 5. Alert and oriented, back to her baseline. -Psychiatry also consulted, appreciate recommendations Overdose - Poison Center notified by ED. Called poison controlled. advices bicarb is arrhythmia - 5/ Sodium bicarbonate discontinued - Serial labs - Telemetry -Repeat monitoring tech QRS 114->104ms decreased , NaHCO3 dc'd per recommendations of Poison Control - Restarted bicarb 07/10 as patient noted with arrhythmia Aflutter /tachy , QRS 94 Depression - See above Leukocytosis 2/2 Aspiration pneumonia. CXR with bilateral infiltrates -Noted WBC count 19.3 from 11, possible aspiration with self extubation. WBC trending down. Monitor CBC -On Levaquin 500 mg daily, added cefepime IV 2g q8h. Monitor. O2 supplement, duonebs, IS, add acapella, robitussin. CXR improving bilateral infiltrates. Neuropathy. Physical deconditioning Consult PT DVT GI prophylaxis - Teds SCDs - Pepcid BID Seen by psych started meds , patient to follow up as OP with psych. Discussed with the patient, nurse, family at bedside (mother) Improving , transfer to med /surg floor Jessica Brandt MD July 13, 2016 14:38
[2016-07-13] MEDS: LORazepam 2 MG/ML VIAL IV PUSH PRN (17:05)
[2016-07-13] MEDS ORDERED: ACETAMINOPHEN/HYDROcodone 325 MG/5 MG TAB PO PRN (17:45)
[2016-07-13] MEDS ORDERED: ACETAMINOPHEN 500 MG CPLT PO PRN (17:45)
[2016-07-13] MEDS: VANCOMYCIN 1,000 MG/NS 250 ML IV SCH ×2 (19:41)
[2016-07-14] MEDS: DILTIAZEM HCL 30 MG TAB PO SCH (00:15)
[2016-07-14] MEDS: INSULIN ASPART SUPPLEMENTAL SCALE SQ SCH ×3 (00:15→12:00)
[2016-07-14] MEDS: CHLORHEXIDINE GLUCONATE 2 % 1 PACK (2 CLOTHS) TOP SCH (00:22)
[2016-07-14 03:40] VITALS: BP 114/67; PULSE 119; RESP 17; TEMP 98.8; O2SAT 92
[2016-07-14] MEDS: CEFEPIME INJ 2,000 MG in SODIUM CHLORIDE 0.9% INJ 100 ML IV SCH ×2 (04:26→13:49)
[2016-07-14] MEDS: VANCOMYCIN 1,000 MG/NS 250 ML IV SCH ×4 (04:26→12:00)
[2016-07-14 05:03] LABS: AUTOMATED NEUTROPHIL # 8.8 TH/MM3 (1.8-7.7); BASOPHIL # 0.2 TH/MM3 (0-0.2); BASOPHIL % 1.2 % (0.0-2.0); EOSINOPHIL # 0.3 TH/MM3 (0-0.4); EOSINOPHIL % 2.3 % (0.0-4.0); HEMATOCRIT 36.1 % (35.0-46.0); HEMO FLAGS DIFF FINAL; LYMPH % 24.2 % (9.0-44.0); LYMPHOCYTE # 3.3 TH/MM3 (1.0-4.8); MEAN CELL VOLUME 93.7 FL (80.0-100.0); MEAN CORPUSCULAR HEMOGLOBIN 31.7 PG (27.0-34.0); MEAN CORPUSCULAR HGB CONC 33.8 % (32.0-36.0); MONO % 8.3 % (0.0-8.0); PLATELET COUNT 261 TH/MM3 (150-450); RED BLOOD COUNT 3.85 MIL/MM3 (4.00-5.30); RED CELL DISTRIBUTION WIDTH 14.2 % (11.6-17.2); WHITE BLOOD COUNT 13.7 TH/MM3 (4.0-11.0)
[2016-07-14 05:26] LABS: BICARBONATE 29.6 MEQ/L (21.0-32.0); MAGNESIUM 1.9 MG/DL (1.5-2.5); POTASSIUM 3.5 MEQ/L (3.5-5.1)
[2016-07-14] MEDS: clonazePAM 1 MG TAB PO SCH ×2 (05:41→13:48)
[2016-07-14 08:00] VITALS: BP 109/69; PULSE 102; RESP 18; TEMP 97.5; O2SAT 91
[2016-07-14] MEDS ORDERED: RISP1 PO (08:33)
--- NOTE | 2016-07-14 08:35 | HHI.DS ---
Discharge Summary Admission Date July 06, 2016 at 03:09 Discharge Date: July 14, 2016 Admitting Diagnosis Multidrug overdose (1) Intentional overdose of drug in tablet form ICD Code: T50.902A (2) Ankle pain ICD Code: M25.579 (3) SVT (supraventricular tachycardia) ICD Code: I47.1 (4) Anxiety state ICD Code: F41.1 (5) Essential hypertension ICD Code: I10 (6) Delirium due to another medical condition ICD Code: F05 Procedures none Brief History - From Admission 46 year old female was found by her mother unresponsive. Mom was concerned that she had overdosed as she has a history of depression and has overdosed in the past. Mom found empty bottles of doxepin, Xanax, and a clonidine. On the arrival, the patient was noted to be a GCS of 3 although her vital signs were unremarkable. The patient reportedly had 2-10 second generalized chronic tonic seizures. The patient had clenching of her mouth and was intubated for airway protection. The patient was admitted to ICU 07/06/2016. She remained intubated for approximately 36 hours, on a sodium bicarbonate infusion, with EKG monitoring secondary to TCA overdose. Resolution of her QRS, lengthening, and metabolic acidosis occurred. On 07/08/19 a psychiatric consult was ordered and the patient was transferred to [facility]. Today a Halicat was called secondary to the patient being tachycardic with a heart rate in the 120s and sodium bicarbonate level dropped to 13. Of note the patient has a persistent leukocytosis. Blood, urine cultures were obtained the patient was placed on an air empiric antibiotics cefepime 2 g every [address] Brandt, critical care medicine's consult for management. CBC/BMP: 07/14/16 0445 07/14/16 0445 Significant Findings Laboratory Tests Test 07/11/16 07/12/16 07/12/16 07/13/16 13:05 03:22 18:20 05:46 Potassium Level 3.1 MEQ/L 2.9 MEQ/L (3.5-5.1) (3.5-5.1) Free Thyroxine 1.62 NG/DL (0.76-1.46) Thyroid Stimulating Hormone 4.170 uIU/ML 3rd Gen (0.358-3.740) White Blood Count 13.7 TH/MM3 13.7 TH/MM3 (4.0-11.0) (4.0-11.0) Neutrophils (%) (Auto) 72.7 % (16.0-70.0) Monocytes (%) (Auto) 8.4 % (0.0-8.0) 8.4 % (0.0-8.0) Neutrophils # (Auto) 10.0 TH/MM3 8.7 TH/MM3 (1.8-7.7) (1.8-7.7) Monocytes # (Auto) 1.1 TH/MM3 1.2 TH/MM3 (0-0.9) (0-0.9) Random Glucose 123 MG/DL 176 MG/DL 124 MG/DL (74-106) (74-106) (74-106) Aspartate Amino Transf 14 U/L (15-37) (AST/SGOT) Albumin 3.0 GM/DL (3.4-5.0) Red Blood Count 3.97 MIL/MM3 (4.00-5.30) Test 07/13/16 07/14/16 11:00 04:45 Vancomycin Level Trough 19.2 MCG/ML (5.0-10.0) White Blood Count 13.7 TH/MM3 (4.0-11.0) Red Blood Count 3.85 MIL/MM3 (4.00-5.30) Monocytes (%) (Auto) 8.3 % (0.0-8.0) Neutrophils # (Auto) 8.8 TH/MM3 (1.8-7.7) Monocytes # (Auto) 1.1 TH/MM3 (0-0.9) Random Glucose 124 MG/DL (74-106) Imaging Last Impressions Chest X-Ray 07/11/16 0000 Signed Impressions: Service Date/Time: Monday, July 11, 2016 08:11 - CONCLUSION: Slight interstitial prominence along the lower lobes, unchanged. Lazarus Davila MD Upper Extremity Ultrasound 07/10/16 0000 Signed Impressions: Service Date/Time: Sunday, July 10, 2016 17:02 - CONCLUSION: 1. Superficial thrombus in the cephalic veins bilaterally. No deep venous thrombosis. Marco Antonio Rhoades MD Lower Extremity Ultrasound 07/10/16 0000 Signed Impressions: Service Date/Time: Sunday, July 10, 2016 16:44 - CONCLUSION: Normal examination. Marco Antonio Rhoades MD Head CT 07/06/16 0154 Signed Impressions: Service Date/Time: Wednesday, July 06, 2016 06:28 - CONCLUSION: 1. No evidence of acute intracranial pathology. No masses are identified. Cedric Aguilera MD PE at Discharge GENERAL: Well-nourished, well-developed patient. Lying semi-recumbent in bed, in no apparent distress SKIN: Warm and dry. HEAD: Normocephalic. EYES: No scleral icterus. No injection or drainage. NECK: Supple, trachea midline. No JVD or lymphadenopathy. CARDIOVASCULAR: Regular rate and rhythm without murmurs, gallops, or rubs. RESPIRATORY: Breath sounds equal bilaterally. No accessory muscle use. GASTROINTESTINAL: Abdomen soft, non-tender, nondistended. MUSCULOSKELETAL: No cyanosis, or edema. BACK: Nontender without obvious deformity. No CVA tenderness. Pt update on day of discharge Feels much better. No sob, n/v/d/c. Eating well/ Was ambulating in the room, unsteady at times. Pain in legs improving some. No fever or chills. No cough, sating well on room air Hospital Course Acute hypoxemic Respiratory failure - Intubated for airway protection -07/07 Self extubation-reintubated for airway protection and poss aspiration PNA when she self extubated -07/08 extubation -Bronchodilators when necessary - Satting well on room air at this time TCA (dozepine toxicity) related arrhythmia Hypokalemia Hypophosphatemia Low bicarb ( drop at 12 07/10/16) , patient is also symptomatic tachycardic HR in 120-130s sustained sob, chest pain, tachypneic with RR 30-35. EKG reviewed , QRS is 94, however patient with tachycardia/AFlutter, RBB and slightly elevated T W in V3/V4 . Trop is negative Start bicarb drip. HR persistent in 130s will also gibe one bolus od cardizem. Consult cardiology. Consult medical technologist hematology, as patient RR in 30s and might deteriorate and might need intubation. Spoke with medical technologist hematology Maribel Rivera, appreciate recommendations. Patient was transferred to [facility]. Monitor lytes and replace. Bicarb improving decrease rate and DC,s as bicarb normal. Will start po cardizem as patient with persistent tachycardia, will hold on BB for now due to respiratory issues to avoid bronchoconstriction. Satting wello n room air now. BP into a lower side,. Will DC cardizem , switch to small dose of metoprolol 12.5 mg po bid. Patient also have withdrawal ativan prn . Reconsult psychiatry for evaluation as patient was more agitated and required restraints. Seen by psych. Start clonazepam and resperdal per psych. Altered mental status Acute encephalopathy likely 2/2 overdose TCA/ Benzos , now resolved and with withdrawals. - Monitor neuro checks -Patient moving extremities 4 spontaneously and also following commands, motor strength 5 over 5. Alert and oriented, back to her baseline. -Psychiatry also consulted, appreciate recommendations Overdose - Poison Center notified by ED. Called poison controlled. advices bicarb is arrhythmia - 07/07 Sodium bicarbonate discontinued - Serial labs - Telemetry -Repeat hospital clinic assistant QRS 114->104ms decreased , NaHCO3 dc'd per recommendations of Poison Control - Restarted bicarb 07/10 as patient noted with arrhythmia Aflutter /tachy , QRS 94 Depression - See above Leukocytosis 2/2 Aspiration pneumonia. CXR with bilateral infiltrates -Noted WBC count 19.3 from 11, possible aspiration with self extubation. WBC trending down. Monitor CBC -On Levaquin 500 mg daily, added cefepime IV 2g q8h. Monitor. O2 supplement, duonebs, IS, add acapella, robitussin. CXR improving bilateral infiltrates. Neuropathy. Physical deconditioning Consult PT DVT GI prophylaxis - Teds SCDs - Pepcid BID Seen by psych started meds , patient to follow up as OP with psych. BA was lifted by psychiatry Dr Arenas. Patient to follow up as OP with psychiatry. Discussed with the patient, nurse, family at bedside (mother) Improving, DC home with home health today. To follow up as OP with PCP and consultants. Pt Condition on Discharge: Stable Discharge Disposition: Disch w/ Home Health Serv Discharge Time: > 30 minutes Discharge Instructions DIET: Follow Instructions for: As Tolerated, No Restrictions Activities you can perform: Regular-No Restrictions Other Activity Instructions: risk of fall Follow up Referrals: PCP Follow-up - 3-5 Days New Medications: Hydrocodone-Acetaminophen (Clementon) 5-325 mg Tab 1 TAB PO Q8HR PRN PAIN #10 Ref 0 TAB Walker Rolling/GetGo (Walker Rolling/GetGo) 1 Mis Mis 1 EA .ROUTE DIRECTED #1 EA Clonazepam (Klonopin) 1 Mg Tab 1 MG PO Q8HR psychosis #90 TAB Metoprolol Tartrate (Metoprolol Tartrate) 25 Mg Tab 12.5 MG PO Q12HR Blood Pressure Management #60 TAB Risperidone (Risperdal) 1 Mg Tab 1 MG PO Q12HR psychosis #60 TAB Discontinued Medications: Alprazolam (Xanax) 2 Mg Tab 2 MG PO BID ANXIETY Ref 0 TAB Clonidine (Clonidine) 0.1 Mg Tab 0.1 MG PO BID Blood Pressure Management #60 Ref 0 TAB Doxepin (Doxepin) 50 Mg Cap 50 MG PO DAILY IN THE AM #60 Ref 0 CAP Doxepin (Doxepin) 50 Mg Cap 100 MG PO HS #30 Ref 0 CAP Jessica Brandt MD July 14, 2016 08:35
[2016-07-14] MEDS ORDERED: METO25TA3 PO (08:39)
[2016-07-14] MEDS ORDERED: CLON1 PO (08:42)
[2016-07-14] MEDS ORDERED: NORC5TAB PO (08:42)
--- NOTE | 2016-07-14 08:43 | HHI.FF ---
Face to Face Verification Diagnosis: (1) Essential hypertension (2) Anxiety state (3) Hyperlipidemia (4) SVT (supraventricular tachycardia) (5) Ankle pain (6) Delirium due to another medical condition (7) Intentional overdose of drug in tablet form Physical Therapy Order: Evaluate and Treat Home Health Nursing Order: Medical education Signs/symptoms of disease process Medication education-adverse effect Nursing assessment with vital signs I have seen patient Elizabeth Mock on 07/14/16. My clinical findings support the need for the requested home health care services because: Ltd mobility - disease progression Patient has SOB I certify that my clinical findings support that this patient is homebound because: Post-op weakness Unsteady gait/balance Jessica Brandt MD July 14, 2016 08:43
[2016-07-14] MEDS ORDERED: PILL SPLITTER OTHER PRN (08:45)
[2016-07-14] MEDS: DOCUSATE SODIUM 100 MG CAP PO SCH (09:00)
[2016-07-14] MEDS: POTASSIUM CHLORIDE 20 MEQ CONTROLLED RELEASE TAB PO SCH (09:00)
[2016-07-14] MEDS ORDERED: METOPROLOL TARTRATE 25 MG TAB PO SCH (09:00)
[2016-07-14] MEDS: LEVOFLOXACIN 500 MG PREMIX INJ 100 ML IV SCH (10:45)
[2016-07-14] MEDS: POTASSIUM CHLORIDE 25 MEQ EFFERVESCENT TAB NG SCH (10:46)
[2016-07-14] MEDS: HEPARIN SODIUM - SQ 10,000 UNITS/ML VIAL SQ SCH (10:47)
[2016-07-14] MEDS: guaiFENesin E.R. 600 MG TAB PO SCH (10:47)
[2016-07-14] MEDS: risperiDONE 1 MG TAB PO SCH (10:47)
[2016-07-14] MEDS ORDERED: GETGO ROLLING W1 MI1 (10:51)
[2016-07-14] MEDS: ARTIFICIAL TEARS OPTH SOLN 15 ML BTL EACH EYE SCH ×3 (10:52→16:14)
[2016-07-14] MEDS: FAMOTIDINE 20 MG/2 ML VIAL IV PUSH SCH (10:52)
[2016-07-14 10:58] VITALS: O2SAT 92
[2016-07-14] MEDS ORDERED: PHARMACY ORDERED LAB ONE (11:45)
[2016-07-14 12:00] VITALS: BP 115/81; PULSE 104; RESP 18; TEMP 96.3; O2SAT 95
--- NOTE | 2016-07-14 12:25 | HHI.PYPN ---
Subjective Remarks Patient was seen today for psychiatric reevaluation, she is calm, cooperative and pleasant, in a good spirits, reports good mood, denies depressive symptoms, denies anxiety, denies perceptual disturbances, she denies suicidal or homicidal ideation, denies visual and auditory hallucinations. She is oriented 3, no attention deficit, no delirium, no gross cognitive impairment present. No episodes of aggressive behavior or agitation reported in the last days.. Review of Systems Other No somatic complaints at this moment Objective Alert: Yes [place]: Person, Place, Date Mood: Calm Affect: Labile Memory Intact: Immediate Hallucinations: Other (she denies) Delusions: No (not elicited) Delusion Type: Other (none) Suicidal: Ideation (she denies) Homicidal: Ideation (she denies) Insight/Judgment Good Labs Test 07/14/16 04:45 White Blood Count 13.7 TH/MM3 Red Blood Count 3.85 MIL/MM3 Hemoglobin 12.2 GM/DL Hematocrit 36.1 % Mean Corpuscular Volume 93.7 FL Mean Corpuscular Hemoglobin 31.7 PG Mean Corpuscular Hemoglobin 33.8 % Concent Red Cell Distribution Width 14.2 % Platelet Count 261 TH/MM3 Mean Platelet Volume 9.9 FL Neutrophils (%) (Auto) 64.0 % Lymphocytes (%) (Auto) 24.2 % Monocytes (%) (Auto) 8.3 % Eosinophils (%) (Auto) 2.3 % Basophils (%) (Auto) 1.2 % Neutrophils # (Auto) 8.8 TH/MM3 Lymphocytes # (Auto) 3.3 TH/MM3 Monocytes # (Auto) 1.1 TH/MM3 Eosinophils # (Auto) 0.3 TH/MM3 Basophils # (Auto) 0.2 TH/MM3 CBC Comment DIFF FINAL Differential Comment Sodium Level 139 MEQ/L Potassium Level 3.5 MEQ/L Chloride Level 100 MEQ/L Carbon Dioxide Level 29.6 MEQ/L Anion Gap 9 MEQ/L Blood Urea Nitrogen 10 MG/DL Creatinine 0.65 MG/DL Estimat Glomerular Filtration 98 ML/MIN Rate Random Glucose 124 MG/DL Calcium Level 9.5 MG/DL Magnesium Level 1.9 MG/DL Date/Time Procedure Status Source Growth 07/10/16 23:30 Gram Stain - Final Complete Sputum Expectorated Sputum 07/10/16 23:30 Sputum Culture - Final Complete Sputum Expectorated Sputum HEAVY GROWTH NORMAL RESPIRATORY SERAFIN 07/10/16 06:20 Aerobic Blood Culture - Preliminary Resulted Blood Peripheral NO GROWTH IN 4 DAYS 07/10/16 06:20 Anaerobic Blood Culture - Preliminary Resulted Blood Peripheral NO GROWTH IN 4 DAYS 07/10/16 04:20 Urine Culture - Final Complete Urine Catheterized Urine Enterococcus Faecalis Vitals/IOs Vital Signs Date Time Temp Pulse Resp B/P Pulse Ox O2 Delivery O2 Flow Rate FiO2 07/14/16 08:00 97.5 102 18 109/69 91 07/13/16 18:29 Room Air 07/13/16 09:30 2.00 Intake and Output 07/13/16 07/13/16 07/14/16 08:00 16:00 00:00 Intake Total 480 ml 3900 ml Output Total 450 ml 1600 ml Balance 30 ml 2300 ml Assessment & Plan Problem List: (1) Delirium due to another medical condition ICD Code: F05 Assessment & Plan Estimated LOS: days Justification for Cont. Inpt. Patient does not meet criteria for psychiatric admission at this moment, Osorio act will be lifted Uche Arenas MD July 14, 2016 12:25
--- NOTE | 2016-07-14 13:35 | HHI.PR ---
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 Patient is feeling much better today. Denies chest pain, sob , n/v/d/c. Objective Vitals Vital Signs Date Time Temp Pulse Resp B/P Pulse Ox O2 Delivery O2 Flow Rate FiO2 07/14/16 08:00 97.5 102 18 109/69 91 07/14/16 03:40 98.8 119 17 114/67 92 07/13/16 23:52 98.1 111 17 100/61 96 07/13/16 20:21 99.5 124 18 113/65 93 07/13/16 18:29 Room Air 07/13/16 16:00 99.3 113 19 112/76 94 07/13/16 16:00 108 07/13/16 15:00 108 07/13/16 14:00 108 I/O 07/13/16 07/13/16 07/13/16 07/14/16 07/14/16 07/14/16 07:00 15:00 23:00 07:00 15:00 23:00 Intake Total 480 ml 3900 ml 1050 ml 453 ml Output Total 450 ml 1600 ml Balance 30 ml 2300 ml 1050 ml 453 ml Intake Oral 480 ml 1500 ml 480 ml IV Total 2400 ml 570 ml 453 ml Output Urine Total 450 ml 1600 ml # Voids 1 3 # Bowel Movements 2 0 0 Result Diagram: 07/14/165 07/14/165 Imaging Last Impressions Chest X-Ray 07/11/16 0000 Signed Impressions: Service Date/Time: Monday, July 11, 2016 08:11 - CONCLUSION: Slight interstitial prominence along the lower lobes, unchanged. Lazarus Davila MD Upper Extremity Ultrasound 07/10/16 0000 Signed Impressions: Service Date/Time: Sunday, July 10, 2016 17:02 - CONCLUSION: 1. Superficial thrombus in the cephalic veins bilaterally. No deep venous thrombosis. Marco Antonio Rhoades MD Lower Extremity Ultrasound 07/10/16 0000 Signed Impressions: Service Date/Time: Sunday, July 10, 2016 16:44 - CONCLUSION: Normal examination. Marco Antonio Rhoades MD Head CT 07/06/16 0154 Signed Impressions: Service Date/Time: Wednesday, July 06, 2016 06:28 - CONCLUSION: 1. No evidence of acute intracranial pathology. No masses are identified. Cedric Aguilera MD Objective Remarks GENERAL: Well-nourished, well-developed patient. Lying semi-recumbent in bed, in no apparent distress SKIN: Warm and dry. HEAD: Normocephalic. EYES: No scleral icterus. No injection or drainage. NECK: Supple, trachea midline. No JVD or lymphadenopathy. CARDIOVASCULAR: Regular rate and rhythm without murmurs, gallops, or rubs. RESPIRATORY: Breath sounds equal bilaterally. No accessory muscle use. GASTROINTESTINAL: Abdomen soft, non-tender, nondistended. MUSCULOSKELETAL: No cyanosis, or edema. BACK: Nontender without obvious deformity. No CVA tenderness. Date of Insertion: July 06, 2016 A/P Assessment and Plan Acute hypoxemic Respiratory failure - Intubated for airway protection -07/07 Self extubation-reintubated for airway protection and poss aspiration PNA when she self extubated -07/08 extubation -Bronchodilators when necessary - Satting well on room air at this time TCA related arrhythmia Hypokalemia Hypophosphatemia Low bicarb ( drop at 12 07/10/16) , patient is also symptomatic tachycardic HR in 120-130s sustained sob, chest pain, tachypneic with RR 30-35. EKG reviewed , QRS is 94, however patient with tachycardia/AFlutter, RBB and slightly elevated T W in V3/V4 . Trop is negative Start bicarb drip. HR persistent in 130s will also gibe one bolus od cardizem. Consult cardiology. Consult vulcanizer rubber plate, as patient RR in 30s and might deteriorate and might need intubation. Spoke with vulcanizer rubber plate Maribel Rivera, appreciate recommendations. Patient was transferred to [facility]. Monitor lytes and replace. Bicarb improving decrease rate and DC,s as bicarb normal. Will start po cardizem as patient with persistent tachycardia, will hold on BB for now due to respiratory issues to avoid bronchoconstriction. Satting wello n room air now. BP into a lower side,. Will DC cardizem , switch to small dose of metoprolol 12.5 mg po bid. Patient also have withdrawal ativan prn . Reconsult psychiatry for evaluation as patient was more agitated and required restraints. Seen by psych. Start clonazepam and resperdal per psych. Altered mental status Acute encephalopathy likely 2/2 overdose TCA/ Benzos , now resolved and with withdrawals. - Monitor neuro checks -Patient moving extremities 4 spontaneously and also following commands, motor strength 5 over 5. Alert and oriented, back to her baseline. -Psychiatry also consulted, appreciate recommendations Overdose - Poison Center notified by ED. Called poison controlled. advices bicarb is arrhythmia - 07/07 Sodium bicarbonate discontinued - Serial labs - Telemetry -Repeat groundwater monitoring technician QRS 114->104ms decreased , NaHCO3 dc'd per recommendations of Poison Control - Restarted bicarb 07/10 as patient noted with arrhythmia Aflutter /tachy , QRS 94 Depression - See above Leukocytosis 2/2 Aspiration pneumonia. CXR with bilateral infiltrates -Noted WBC count 19.3 from 11, possible aspiration with self extubation. WBC trending down. Monitor CBC -On Levaquin 500 mg daily, added cefepime IV 2g q8h. Monitor. O2 supplement, duonebs, IS, add acapella, robitussin. CXR improving bilateral infiltrates. Neuropathy. Physical deconditioning Consult PT DVT GI prophylaxis - Teds SCDs - Pepcid BID Seen by psych started meds , patient to follow up as OP with psych. BA was lifted by psychiatry Dr Arenas. Patient to follow up as OP with psychiatry. Discussed with the patient, nurse, family at bedside (mother) Improving, DC home with home health today. To follow up as OP with PCP and consultants. Jessica Brandt MD July 14, 2016 13:35
[2016-07-14 16:00] VITALS: BP 112/84; PULSE 105; RESP 18; TEMP 96; O2SAT 95
[2016-07-14] MEDS: SODIUM BICARBONATE 8.4% INJ 150 MEQ in DEXTROSE 5% IN WATE 1000ML INJ 850 ML IV SCH ×2 (16:14)
== END 2016-07-14 17:19 | disposition home health service (06) | DRG 917 ==
LOC: NEPC 01:42 → NEDA 03:09 → HIMW 06:40 → N06A 07-09 13:33 → HCIS 07-10 11:27 → N06A 07-13 18:29
PROVIDERS: ADMIT Hospitalist; ATTEND Hospitalist
PROC: 0T9B70Z Drainage of Bladder with Drainage Device, Via Natural or Artificial Opening (ICD-10-PCS; principal; 2016-07-06)
PROC: 5A1945Z Respiratory Ventilation, 24-96 Consecutive Hours (ICD-10-PCS; 2016-07-06)
PROC: 0BH17EZ Insertion of Endotracheal Airway into Trachea, Via Natural or Artificial Opening (ICD-10-PCS; 2016-07-06)
DX: T43.012A Poisoning by tricyclic antidepressants, intentional self-harm, initial encounter (principal); J96.01 Acute respiratory failure with hypoxia; J69.0 Pneumonitis due to inhalation of food and vomit; G92 Toxic encephalopathy; E87.2 Acidosis; I47.1 Supraventricular tachycardia; I48.92 Unspecified atrial flutter; F13.239 Sedative, hypnotic or anxiolytic dependence with withdrawal, unspecified; Z78.1 Physical restraint status; F32.9 Major depressive disorder, single episode, unspecified; I45.10 Unspecified right bundle-branch block; F41.0 Panic disorder [episodic paroxysmal anxiety]; E78.5 Hyperlipidemia, unspecified; G43.909 Migraine, unspecified, not intractable, without status migrainosus; E78.00 Pure hypercholesterolemia, unspecified; F43.10 Post-traumatic stress disorder, unspecified; F17.210 Nicotine dependence, cigarettes, uncomplicated; G40.909 Epilepsy, unspecified, not intractable, without status epilepticus; E87.6 Hypokalemia; E83.39 Other disorders of phosphorus metabolism; G62.9 Polyneuropathy, unspecified; I10 Essential (primary) hypertension; M25.579 Pain in unspecified ankle and joints of unspecified foot; Z87.11 Personal history of peptic ulcer disease; Z91.5 Personal history of self-harm; Z88.5 Allergy status to narcotic agent; Z88.8 Allergy status to other drugs, medicaments and biological substances
CPT/HCPCS: 31500; 36600; 70450; 71010; 76937; 80048; 80053; 80202; 80307; 81001; 82550; 82552; 82805; 82948; 83036; 83605; 83690; 83735; 83880; 83930; 83935; 84100; 84132; 84155; 84439; 84443; 84481; 84484; 84702; 84703; 85025; 85027; 85379; 85610; 85730; 87040; 87070; 87077; 87086; 87186; 87205; 87641; 93005; 93306; 93970; 94002; 94003; 94150; 94664; 94667; 94668; 96361; 96374; 96375; 96376; J0692; J1644; J1815; J1956; J2060; J2310; J2405; J3370; J3480; J7030; J7050; J7070; J7120

== ENCOUNTER 2017-06-09 18:54 | Emergency (ER) | payer OTHER ==
[~2017-06-09] VITALS: Ht 165.1 cm; Wt 65.0 kg
[~2017-06-09 18:54] MED LIST changes: -CLON0.1T PO; +CLON1 PO; -DOXE50CA3 PO; +GETGO ROLLING W1 MI1; +METO25TA3 PO; +NORC5TAB PO; +RISP1 PO; -TYLE325T PO; -XANA2TAB2 PO
[2017-06-09 19:02] VITALS: BP 129/72; PULSE 79; RESP 16; TEMP 97.5; O2SAT 95
== END 2017-06-09 19:27 | disposition left against medical advice (07) ==
LOC: NED 18:54
DX: Z53.21 Procedure and treatment not carried out due to patient leaving prior to being seen by health care provider (principal)
CPT/HCPCS: 99281

== ENCOUNTER 2018-01-12 11:03 | Inpatient (IN) ==
[2018-01-12] MEDS ORDERED: Sod Chloride 0.9% Inj 1,000 ML IV.SIG ONE (11:31)
--- NOTE | 2018-01-12 11:38 | ED ---
HPI General Chief Complaint: Altered Mental Status Stated Complaint: Poss AMS Time Seen by Provider: 01/13/18 08:16 Source: patient and EMS Mode of arrival: EMS Limitations: no limitations History of Present Illness HPI narrative: 47-year-old female presents the ED via EMS for evaluation of altered mental status. Per EMS report the patient was found in a hotel. Hotel staff called EMS after finding the patient confused in her hotel room disheveled. On presentation the patient is alert. She is oriented to self. She tells me that she is from [place]. She follows commands and is compliant with exam but she does not answer any questions asked. Per chart review she has a history of bipolar. She is unable or unwilling to provide any meaningful history. Related Data Home Medications Medication Instructions Recorded Confirmed alprazolam 2 mg PO BID PRN 01/06/18 01/12/18 atenolol 50 mg PO DAILY 01/06/18 01/12/18 doxepin 100 mg PO BID 01/06/18 01/12/18 zolpidem 10 mg PO HS PRN 01/06/18 01/12/18 Previous Rx's Medication Instructions Recorded cephalexin [Keflex] 1 g PO BID 7 Days #28 cap 01/12/18 Allergies Allergy/AdvReac Type Severity Reaction Status Date / Time codeine Allergy Severe Anaphylaxis Verified 01/06/18 13:01 iodine Allergy Severe Anaphylaxis Verified 01/06/18 13:01 povidone-iodine Allergy Severe Anaphylaxis Verified 01/06/18 13:01 quetiapine Allergy Severe Anaphylaxis Verified 01/06/18 13:01 sodium iodide Allergy Severe Anaphylaxis Verified 01/06/18 13:01 sodium iodide Allergy Severe Anaphylaxis Verified 01/06/18 13:01 tramadol Allergy Severe Anaphylaxis Verified 01/06/18 13:01 Review of Systems ROS: all other systems reviewed are negative [facility] Family History Family History Other Patient's mother is in good health Social History Social History Substance History: Unable to Obtain Second Hand Smoke Exposure: No Smoking Status: Current every day smoker Tobacco Type: Cigarettes How Often Do You Have a Drink Containing Alcohol: Monthly or less Recent Travel in [facility] within the Last 8 Weeks: No Recent Out of Country Travel within the Last 8 Weeks: No Substance Abuse Detail Opiates: Substance Use Status: Active Methamphetamine: Substance Use Status: Active Crack/Cocaine: Substance Use Status: Active Immunization History Tetanus Immunization: Unsure Exam Narrative Exam Narrative: GENERAL: Well-nourished, well-developed, alert, disheveled white female no acute distress. SKIN: Focused skin assessment warm/dry. Several small wounds in various stages of healing of. HEAD: Atraumatic. Normocephalic. EYES: Pupils equal and round and reactive. No scleral icterus. No injection or drainage. Extraocular motions are intact. ENT: No nasal bleeding or discharge. Mucous membranes pink and dry. NECK: Trachea midline. No JVD. CARDIOVASCULAR: Tachycardic. Regular rate and rhythm. No murmur appreciated. RESPIRATORY: No accessory muscle use. Clear to auscultation. Breath sounds equal bilaterally. GASTROINTESTINAL: Abdomen soft, non-tender, nondistended. Hepatic and splenic margins not palpable. MUSCULOSKELETAL: No obvious deformities. No clubbing. No cyanosis. No edema. Equal strength in bilateral upper and lower extremities. NEUROLOGICAL: Awake and alert. No obvious cranial nerve deficits. Motor grossly within normal limits. Normal speech. PSYCHIATRIC: Alert, confused, refuses to answer questions. Course Reevaluation(s) Reevaluation #1: The psychiatric nurse contacted me and states that the patient' s heart rate is now in the 120s. She spoke with Dr. Arenas, psychiatrist. He is familiar with this patient and concern for benzodiazepine withdrawal. She was administered 2 mg Ativan IM. Still awaiting psychiatric evaluation. Time: 20:52 Initial Documented Vital Signs Temperature 99.8 F H 01/12/18 11:09 Pulse Rate 93 H 01/12/18 11:09 Respiratory Rate 18 01/12/18 11:09 Blood Pressure 144/95 H 01/12/18 11:09 Pulse Oximetry 98 01/12/18 11:09 Last Documented Vital Signs Temperature 97.8 F 01/17/18 06:00 Pulse Rate 73 01/17/18 06:00 Respiratory Rate 17 01/17/18 06:00 Blood Pressure 112/60 01/17/18 06:00 Pulse Oximetry 98 01/17/18 06:00 Medical Decision Making SIERRA Attestation SIERRA supervised visit: Yes Attestation: I, Dr. Connolly, have reviewed the advance practice practitioner's documentation and am in agreement, met with the patient face to face, made the diagnosis, and the medical decision making was done by me. *My assessment and Findings: UTI. Mood disorder. MDM Narrative Medical decision making narrative: 47-year-old female with PMH of bipolar presents to the ED via EMS for evaluation of AMS. Per EMS the patient patient was staying in a motel. The staff at the motel called after finding the patient disoriented and in a disheveled room. On presentation the patient is alert, sitting upright in the bed. She tells me that she is from [place]. I asked the patient multiple other history questions and she would look at me and blink her eyes but not respond. She responds to commands. She is otherwise acting appropriately. IV was established, patient was placed on continuous cardiac monitoring.. Patient was administered a liter of fluids. Basic lab work reveals a leukocytosis of 15 with evidence of UTI. Tox screen positive for benzodiazepines. CT of the brain without acute findings. Patient remains unwilling or unable to answer questions. I reviewed the patient's record and she has several visits for substance induced mood disorder and complications of her psychiatric illnesses. Patient was administered a gram of Rocephin. She is prescribed a course of Keflex. She is medically clear for psychiatric evaluation. There was some concern that the patient did not receive the entire gram of Rocephin, pulled out her IV before it could be completed. She was administered a dose of Keflex. She is awaiting psychiatric evaluation. Medical Screen Exam Complete: Yes Emergency Medical Condition: Yes Differential Diagnosis Differential Diagnosis: substance abuse mood disorder versus UTI versus metabolic derangement versus bipolar versus other Lab Data Result diagrams: 01/13/18 16:21 01/15/18 09:41 Lab Results 01/12/18 01/12/18 01/12/18 Range/Units 11:35 11:35 11:35 WBC 9.7 (4.0-11.0) th/mm3 RBC 4.32 (4.00-5.30) mil/mm3 Hgb 15.6 H (11.6-15.3) gm/dL Hct 43.9 (35.0-46.0) % MCV 101.6 H (80.0-100.0) fL MCH 36.2 H (27.0-34.0) pg MCHC 35.6 (32.0-36.0) % RDW 13.0 (11.6-17.2) % Plt Count 167 (150-450) th/mm3 MPV 10.1 (7.0-11.0) fL Neut % (Auto) 71.3 H (16.0-70.0) % Lymph % (Auto) 20.0 (9.0-44.0) % Lucas % (Auto) 7.7 (0.0-8.0) % Eos % (Auto) 0.4 (0.0-4.0) % Baso % (Auto) 0.6 (0.0-2.0) % Neut # (Auto) 6.9 (1.8-7.7) th/mm3 Lymph # (Auto) 1.9 (1.0-4.8) th/mm3 Lucas # (Auto) 0.7 (0.0-0.9) th/mm3 Eos # (Auto) 0.0 (0.0-0.4) th/mm3 Baso # (Auto) 0.1 (0.0-0.2) th/mm3 WBC Differential . Differential Comment Auto diff final PT 11.0 (9.8-11.6) sec INR 1.1 Ratio Sodium 144 (136-145) meq/L Potassium 3.2 L (3.5-5.1) meq/L Chloride 110 H (98-107) meq/L Carbon Dioxide 23.5 (21.0-32.0) meq/L Anion Gap 11 (5-15) meq/L BUN 15 (7-18) mg/dL Creatinine 1.03 H (0.50-1.00) mg/dL Estimated GFR 57 L (>89) mL/min Random Glucose 163 H (74-106) mg/dL Hemoglobin A1c (4.3-6.0) % Lactic Acid (0.4-2.0) mmol/L Calcium 8.9 (8.5-10.1) mg/dL Magnesium 1.9 (1.5-2.5) mg/dL Total Bilirubin 0.8 (0.2-1.0) mg/dL AST 52 H (15-37) U/L ALT 88 H (10-53) U/L Alkaline Phosphatase 73 (45-117) U/L Ammonia (11-32) mcmol/L Total Creatine Kinase (26-192) U/L CK-MB (CK-2) (0.5-3.6) ng/mL CK-MB (CK-2) % (0.0-4.0) % Troponin I Less than 0.02 L (0.02-0.05) ng/mL Total Protein 8.3 H (6.4-8.2) g/dL Albumin 3.9 (3.4-5.0) g/dL Triglycerides (42-150) mg/dL Cholesterol (120-200) mg/dL LDL Cholesterol, Calc (0-99) mg/dL HDL Cholesterol (40.0-60.0) mg/dL Cholesterol/HDL Ratio Ratio Urine Color (Yellw/Straw) Urine Clarity (Clear) Urine pH (5.0-8.5) Ur Specific [place] (1.002-1.035) Urine Protein (Neg-Trace) mg/dL Urine Glucose (UA) (Negative) mg/dL Urine Ketones (Negative) mg/dL Urine Occult Blood (Negative) Urine Nitrate (Negative) Urine Bilirubin (Negative) Urine Urobilinogen (Less than 2) mg/dL Ur Leukocyte Esterase (Negative) Urine Bacteria (None) /hpf Urine Mucus (Occasional) /lpf Micro UA Comment Ur Microscopic Review Urine Culture Comments Salicylates (2.8-20.0) mg/dL Urine Opiates Screen (Neg) Acetaminophen (10.0-30.0) mcg/mL Ur Barbiturates Screen (Neg) Ur Amphetamines Screen (Neg) U Benzodiazepines Scrn (Neg) Urine Cocaine Screen (Neg) U Cannabinoids Screen (Neg) Serum Alcohol Less than 3 (0-5) mg/dL 01/12/18 01/12/18 01/12/18 Range/Units 11:35 11:35 11:35 WBC (4.0-11.0) th/mm3 RBC (4.00-5.30) mil/mm3 Hgb (11.6-15.3) gm/dL Hct (35.0-46.0) % MCV (80.0-100.0) fL MCH (27.0-34.0) pg MCHC (32.0-36.0) % RDW (11.6-17.2) % Plt Count (150-450) th/mm3 MPV (7.0-11.0) fL Neut % (Auto) (16.0-70.0) % Lymph % (Auto) (9.0-44.0) % Lucas % (Auto) (0.0-8.0) % Eos % (Auto) (0.0-4.0) % Baso % (Auto) (0.0-2.0) % Neut # (Auto) (1.8-7.7) th/mm3 Lymph # (Auto) (1.0-4.8) th/mm3 Lucas # (Auto) (0.0-0.9) th/mm3 Eos # (Auto) (0.0-0.4) th/mm3 Baso # (Auto) (0.0-0.2) th/mm3 WBC Differential Differential Comment PT (9.8-11.6) sec INR Ratio Sodium (136-145) meq/L Potassium (3.5-5.1) meq/L Chloride (98-107) meq/L Carbon Dioxide (21.0-32.0) meq/L Anion Gap (5-15) meq/L BUN (7-18) mg/dL Creatinine (0.50-1.00) mg/dL Estimated GFR (>89) mL/min Random Glucose (74-106) mg/dL Hemoglobin A1c (4.3-6.0) % Lactic Acid 2.1 H (0.4-2.0) mmol/L Calcium (8.5-10.1) mg/dL Magnesium (1.5-2.5) mg/dL Total Bilirubin (0.2-1.0) mg/dL AST (15-37) U/L ALT (10-53) U/L Alkaline Phosphatase (45-117) U/L Ammonia 21 (11-32) mcmol/L Total Creatine Kinase (26-192) U/L CK-MB (CK-2) (0.5-3.6) ng/mL CK-MB (CK-2) % (0.0-4.0) % Troponin I (0.02-0.05) ng/mL Total Protein (6.4-8.2) g/dL Albumin (3.4-5.0) g/dL Triglycerides (42-150) mg/dL Cholesterol (120-200) mg/dL LDL Cholesterol, Calc (0-99) mg/dL HDL Cholesterol (40.0-60.0) mg/dL Cholesterol/HDL Ratio Ratio Urine Color (Yellw/Straw) Urine Clarity (Clear) Urine pH (5.0-8.5) Ur Specific [place] (1.002-1.035) Urine Protein (Neg-Trace) mg/dL Urine Glucose (UA) (Negative) mg/dL Urine Ketones (Negative) mg/dL Urine Occult Blood (Negative) Urine Nitrate (Negative) Urine Bilirubin (Negative) Urine Urobilinogen (Less than 2) mg/dL Ur Leukocyte Esterase (Negative) Urine Bacteria (None) /hpf Urine Mucus (Occasional) /lpf Micro UA Comment Ur Microscopic Review Urine Culture Comments Salicylates (2.8-20.0) mg/dL Urine Opiates Screen (Neg) Acetaminophen Less than 2.0 L (10.0-30.0) mcg/mL Ur Barbiturates Screen (Neg) Ur Amphetamines Screen (Neg) U Benzodiazepines Scrn (Neg) Urine Cocaine Screen (Neg) U Cannabinoids Screen (Neg) Serum Alcohol (0-5) mg/dL 01/12/18 01/12/18 01/12/18 Range/Units 11:35 15:00 15:00 WBC (4.0-11.0) th/mm3 RBC (4.00-5.30) mil/mm3 Hgb (11.6-15.3) gm/dL Hct (35.0-46.0) % MCV (80.0-100.0) fL MCH (27.0-34.0) pg MCHC (32.0-36.0) % RDW (11.6-17.2) % Plt Count (150-450) th/mm3 MPV (7.0-11.0) fL Neut % (Auto) (16.0-70.0) % Lymph % (Auto) (9.0-44.0) % Lucas % (Auto) (0.0-8.0) % Eos % (Auto) (0.0-4.0) % Baso % (Auto) (0.0-2.0) % Neut # (Auto) (1.8-7.7) th/mm3 Lymph # (Auto) (1.0-4.8) th/mm3 Lucas # (Auto) (0.0-0.9) th/mm3 Eos # (Auto) (0.0-0.4) th/mm3 Baso # (Auto) (0.0-0.2) th/mm3 WBC Differential Differential Comment PT (9.8-11.6) sec INR Ratio Sodium (136-145) meq/L Potassium (3.5-5.1) meq/L Chloride (98-107) meq/L Carbon Dioxide (21.0-32.0) meq/L Anion Gap (5-15) meq/L BUN (7-18) mg/dL Creatinine (0.50-1.00) mg/dL Estimated GFR (>89) mL/min Random Glucose (74-106) mg/dL Hemoglobin A1c (4.3-6.0) % Lactic Acid (0.4-2.0) mmol/L Calcium (8.5-10.1) mg/dL Magnesium (1.5-2.5) mg/dL Total Bilirubin (0.2-1.0) mg/dL AST (15-37) U/L ALT (10-53) U/L Alkaline Phosphatase (45-117) U/L Ammonia (11-32) mcmol/L Total Creatine Kinase (26-192) U/L CK-MB (CK-2) (0.5-3.6) ng/mL CK-MB (CK-2) % (0.0-4.0) % Troponin I (0.02-0.05) ng/mL Total Protein (6.4-8.2) g/dL Albumin (3.4-5.0) g/dL Triglycerides (42-150) mg/dL Cholesterol (120-200) mg/dL LDL Cholesterol, Calc (0-99) mg/dL HDL Cholesterol (40.0-60.0) mg/dL Cholesterol/HDL Ratio Ratio Urine Color Yellow (Yellw/Straw) Urine Clarity Hazy H (Clear) Urine pH 5.0 (5.0-8.5) Ur Specific [place] 1.031 (1.002-1.035) Urine Protein 100 H (Neg-Trace) mg/dL Urine Glucose (UA) 150 H (Negative) mg/dL Urine Ketones Trace H (Negative) mg/dL Urine Occult Blood Negative (Negative) Urine Nitrate Negative (Negative) Urine Bilirubin Negative (Negative) Urine Urobilinogen 4 or greater (Less than 2) mg/dL Ur Leukocyte Esterase Negative (Negative) Urine Bacteria Moderate H (None) /hpf Urine Mucus Many H (Occasional) /lpf Micro UA Comment Culture indicated Ur Microscopic Review Not Reportable Urine Culture Comments Culture indicated Salicylates 3.9 (2.8-20.0) mg/dL Urine Opiates Screen Neg (Neg) Acetaminophen (10.0-30.0) mcg/mL Ur Barbiturates Screen Neg (Neg) Ur Amphetamines Screen Neg (Neg) U Benzodiazepines Scrn Pos H (Neg) Urine Cocaine Screen Neg (Neg) U Cannabinoids Screen Neg (Neg) Serum Alcohol (0-5) mg/dL 01/13/18 01/13/18 01/14/18 Range/Units 16:21 16:21 07:36 WBC 11.3 H (4.0-11.0) th/mm3 RBC 4.23 (4.00-5.30) mil/mm3 Hgb 15.1 (11.6-15.3) gm/dL Hct 43.6 (35.0-46.0) % MCV 103.0 H (80.0-100.0) fL MCH 35.6 H (27.0-34.0) pg MCHC 34.5 (32.0-36.0) % RDW 12.9 (11.6-17.2) % Plt Count 160 (150-450) th/mm3 MPV 10.1 (7.0-11.0) fL Neut % (Auto) 66.5 (16.0-70.0) % Lymph % (Auto) 25.0 (9.0-44.0) % Lucas % (Auto) 6.8 (0.0-8.0) % Eos % (Auto) 1.0 (0.0-4.0) % Baso % (Auto) 0.7 (0.0-2.0) % Neut # (Auto) 7.5 (1.8-7.7) th/mm3 Lymph # (Auto) 2.8 (1.0-4.8) th/mm3 Lucas # (Auto) 0.8 (0.0-0.9) th/mm3 Eos # (Auto) 0.1 (0.0-0.4) th/mm3 Baso # (Auto) 0.1 (0.0-0.2) th/mm3 WBC Differential . Differential Comment Auto diff final PT (9.8-11.6) sec INR Ratio Sodium 143 142 (136-145) meq/L Potassium 2.9 L* 3.4 L (3.5-5.1) meq/L Chloride 105 106 (98-107) meq/L Carbon Dioxide 27.9 25.3 (21.0-32.0) meq/L Anion Gap 10 11 (5-15) meq/L BUN 16 16 (7-18) mg/dL Creatinine 0.82 0.81 (0.50-1.00) mg/dL Estimated GFR 74 L 75 L (>89) mL/min Random Glucose 127 H 113 H (74-106) mg/dL Hemoglobin A1c (4.3-6.0) % Lactic Acid (0.4-2.0) mmol/L Calcium 9.1 8.8 (8.5-10.1) mg/dL Magnesium (1.5-2.5) mg/dL Total Bilirubin 0.5 (0.2-1.0) mg/dL AST 58 H (15-37) U/L ALT 84 H (10-53) U/L Alkaline Phosphatase 71 (45-117) U/L Ammonia (11-32) mcmol/L Total Creatine Kinase 1285 H (26-192) U/L CK-MB (CK-2) 8.3 H (0.5-3.6) ng/mL CK-MB (CK-2) % 0.6 (0.0-4.0) % Troponin I (0.02-0.05) ng/mL Total Protein 7.6 D (6.4-8.2) g/dL Albumin 3.6 (3.4-5.0) g/dL Triglycerides 140 (42-150) mg/dL Cholesterol 179 (120-200) mg/dL LDL Cholesterol, Calc 104 H (0-99) mg/dL HDL Cholesterol 47.0 (40.0-60.0) mg/dL Cholesterol/HDL Ratio 3.80 Ratio Urine Color (Yellw/Straw) Urine Clarity (Clear) Urine pH (5.0-8.5) Ur Specific [place] (1.002-1.035) Urine Protein (Neg-Trace) mg/dL Urine Glucose (UA) (Negative) mg/dL Urine Ketones (Negative) mg/dL Urine Occult Blood (Negative) Urine Nitrate (Negative) Urine Bilirubin (Negative) Urine Urobilinogen (Less than 2) mg/dL Ur Leukocyte Esterase (Negative) Urine Bacteria (None) /hpf Urine Mucus (Occasional) /lpf Micro UA Comment Ur Microscopic Review Urine Culture Comments Salicylates (2.8-20.0) mg/dL Urine Opiates Screen (Neg) Acetaminophen (10.0-30.0) mcg/mL Ur Barbiturates Screen (Neg) Ur Amphetamines Screen (Neg) U Benzodiazepines Scrn (Neg) Urine Cocaine Screen (Neg) U Cannabinoids Screen (Neg) Serum Alcohol (0-5) mg/dL 01/14/18 01/14/18 01/15/18 Range/Units 07:36 07:36 09:41 WBC (4.0-11.0) th/mm3 RBC (4.00-5.30) mil/mm3 Hgb (11.6-15.3) gm/dL Hct (35.0-46.0) % MCV (80.0-100.0) fL MCH (27.0-34.0) pg MCHC (32.0-36.0) % RDW (11.6-17.2) % Plt Count (150-450) th/mm3 MPV (7.0-11.0) fL Neut % (Auto) (16.0-70.0) % Lymph % (Auto) (9.0-44.0) % Lucas % (Auto) (0.0-8.0) % Eos % (Auto) (0.0-4.0) % Baso % (Auto) (0.0-2.0) % Neut # (Auto) (1.8-7.7) th/mm3 Lymph # (Auto) (1.0-4.8) th/mm3 Lucas # (Auto) (0.0-0.9) th/mm3 Eos # (Auto) (0.0-0.4) th/mm3 Baso # (Auto) (0.0-0.2) th/mm3 WBC Differential Differential Comment PT (9.8-11.6) sec INR Ratio Sodium 141 (136-145) meq/L Potassium 4.0 (3.5-5.1) meq/L Chloride 108 H (98-107) meq/L Carbon Dioxide 23.5 (21.0-32.0) meq/L Anion Gap 10 (5-15) meq/L BUN 10 (7-18) mg/dL Creatinine 0.79 (0.50-1.00) mg/dL Estimated GFR 78 L (>89) mL/min Random Glucose 120 H (74-106) mg/dL Hemoglobin A1c 5.7 (4.3-6.0) % Lactic Acid (0.4-2.0) mmol/L Calcium 9.2 (8.5-10.1) mg/dL Magnesium 1.6 (1.5-2.5) mg/dL Total Bilirubin (0.2-1.0) mg/dL AST (15-37) U/L ALT (10-53) U/L Alkaline Phosphatase (45-117) U/L Ammonia (11-32) mcmol/L Total Creatine Kinase 620 H (26-192) U/L CK-MB (CK-2) 4.1 H (0.5-3.6) ng/mL CK-MB (CK-2) % 0.7 (0.0-4.0) % Troponin I (0.02-0.05) ng/mL Total Protein (6.4-8.2) g/dL Albumin (3.4-5.0) g/dL Triglycerides (42-150) mg/dL Cholesterol (120-200) mg/dL LDL Cholesterol, Calc (0-99) mg/dL HDL Cholesterol (40.0-60.0) mg/dL Cholesterol/HDL Ratio Ratio Urine Color (Yellw/Straw) Urine Clarity (Clear) Urine pH (5.0-8.5) Ur Specific [place] (1.002-1.035) Urine Protein (Neg-Trace) mg/dL Urine Glucose (UA) (Negative) mg/dL Urine Ketones (Negative) mg/dL Urine Occult Blood (Negative) Urine Nitrate (Negative) Urine Bilirubin (Negative) Urine Urobilinogen (Less than 2) mg/dL Ur Leukocyte Esterase (Negative) Urine Bacteria (None) /hpf Urine Mucus (Occasional) /lpf Micro UA Comment Ur Microscopic Review Urine Culture Comments Salicylates (2.8-20.0) mg/dL Urine Opiates Screen (Neg) Acetaminophen (10.0-30.0) mcg/mL Ur Barbiturates Screen (Neg) Ur Amphetamines Screen (Neg) U Benzodiazepines Scrn (Neg) Urine Cocaine Screen (Neg) U Cannabinoids Screen (Neg) Serum Alcohol (0-5) mg/dL Imaging Data Radiologist's impression: Chest X-Ray 01/12/18 11:31 CONCLUSION: Negative examination. Head CT 01/12/18 11:31 CONCLUSION: No evidence of acute intracranial process. . Discharge Plan Discharge Disposition Patient Disposition: 30 Still Patient Discharge Details Diagnosis: Altered mental status, Urinary tract infection Physicians Team ED Provider: Yo Connolly ED Midlevel Provider: Izzy Rodriguez Primary Care Provider: Primary Care Yeimy Coker Attending Provider: Lazarus Medeiros Status ED Status: Left Department Discharge Information Discharge Date/Time: 01/13/18 11:15
[2018-01-12 11:58] LABS: Baso # (Auto) 0.1 th/mm3 (0.0-0.2); Baso % (Auto) 0.6 % (0.0-2.0); Eos % (Auto) 0.4 % (0.0-4.0); Hematocrit 43.9 % (35.0-46.0); Hemoglobin 15.6 gm/dL (11.6-15.3); Lymph # (Auto) 1.9 th/mm3 (1.0-4.8); Mean Corpuscular HGB Conc 35.6 % (32.0-36.0); Mean Corpuscular Hemoglobin 36.2 pg (27.0-34.0); Mean Corpuscular Volume 101.6 fL (80.0-100.0); Mean Platelet Volume 10.1 fL (7.0-11.0); Mono # (Auto) 0.7 th/mm3 (0.0-0.9); Mono % (Auto) 7.7 % (0.0-8.0); Neut # (Auto) 6.9 th/mm3 (1.8-7.7); Neut % (Auto) 71.3 % (16.0-70.0); Platelet Count 167 th/mm3 (150-450); Red Blood Count 4.32 mil/mm3 (4.00-5.30); White Blood Count 9.7 th/mm3 (4.0-11.0)
[2018-01-12 12:04] LABS: INR 1.1 Ratio
[2018-01-12 12:25] LABS: Alkaline Phosphatase 73 U/L (45-117); Total Protein 8.3 g/dL (6.4-8.2)
[2018-01-12 12:26] LABS: Alanine Aminotransferase 88 U/L (10-53); Albumin 3.9 g/dL (3.4-5.0); Anion Gap 11 meq/L (5-15); Aspartate Aminotransferase 52 U/L (15-37); Blood Urea Nitrogen 15 mg/dL (7-18); Calcium 8.9 mg/dL (8.5-10.1); Carbon Dioxide 23.5 meq/L (21.0-32.0); Chloride 110 meq/L (98-107); Glomerular Filtration Rate 57 mL/min (>89); Glucose,Random 163 mg/dL (74-106); Magnesium 1.9 mg/dL (1.5-2.5); Potassium 3.2 meq/L (3.5-5.1); Sodium 144 meq/L (136-145)
--- NOTE | 2018-01-12 12:30 | CT ---
EXAM DATE: 01/12/2018 12:21 PM EST AGE/SEX: 47 years / Female INDICATIONS: Altered mental status, possible seizure. CLINICAL DATA: This is the patient's initial encounter. Patient reports that signs and symptoms have been present for 1 day and indicates a pain score of Nonresponsive. MEDICAL/SURGICAL HISTORY: Seizures. None. RADIATION DOSE: 37.22 CTDI (mGy) COMPARISON: [facility] – [place] HEAD W/O CONTRAST, 01/06/2018. . TECHNIQUE: CT of the head without contrast. Using automated exposure control and adjustment of the mA and/or kV according to patient size, radiation dose was kept as low as reasonably achievable to ob tain optimal diagnostic quality images. DICOM format image data is available electronically for revi ew and comparison. FINDINGS: Cerebrum: The ventricles are normal for age. No evidence of midline shift, mass lesion, hemorrhage or acute infarction. No extraaxial fluid collections are seen. Posterior Fossa: The cerebellum and brainstem are intact. The 4th ventricle is midline. The cerebe llopontine angle is unremarkable. Extracranial: The visualized portion of the orbits is intact. Skull: The calvaria is intact. No evidence of skull fracture. CONCLUSION: No evidence of acute intracranial process. . Electronically signed by: Giovanni Hartley MD 01/12/2018 12:29 PM EST
--- NOTE | 2018-01-12 12:31 | XR ---
EXAM DATE: 01/12/2018 12:01 PM EST AGE/SEX: 47 years / Female INDICATIONS: Short of breath, altered mental status CLINICAL DATA: This is the patient's initial encounter. Patient reports that signs and symptoms have been present for 1 day and indicates a pain score of Nonresponsive. MEDICAL/SURGICAL HISTORY: Non-responsive. Non-responsive. COMPARISON: [facility] – [place], CHEST SINGLE AP, 07/11/2016. . FINDINGS: A single AP view of the chest demonstrates the lungs to be symmetrically aerated without evidence of mass, infiltrate or effusion. The cardiomediastinal contours are unremarkable. Osseous structures a re intact. CONCLUSION: Negative examination. Electronically signed by: Giovanni Hartley MD 01/12/2018 12:29 PM EST
[2018-01-12 15:22] LABS: Bacteria,Urine Moderate /hpf; Bilirubin,Urine Negative (Negative); Glucose,Urine (UA) 150 mg/dL (Negative); Leukocyte Esterase,Urine Negative (Negative); Mucus,Urine Many /lpf (Occasional); Nitrite,Urine Negative (Negative); Specific Gravity,Urine 1.031 (1.002-1.035); Urobilinogen,Urine 4 or Greater mg/dL (Less than 2)
[2018-01-12 15:23] LABS: Color,Urine Yellow (Yellw/Straw)
[2018-01-12 15:24] LABS: Clarity,Urine Hazy (Clear)
[2018-01-12 15:49] LABS: Amphetamine Screen,Urine Neg (Neg); Barbiturate Screen,Urine Neg (Neg); Cannabinoid Screen,Urine Neg (Neg); Cocaine Screen,Urine Neg (Neg)
[2018-01-12 15:52] LABS: Opiate Screen,Urine Neg (Neg)
[2018-01-12] MEDS ORDERED: Acetaminophen 325 MG Tablet PO ONE (20:51)
[2018-01-12] MEDS ORDERED: LORazepam 1 MG Tablet PO ONE (23:02)
[2018-01-12] MEDS ORDERED: Haloperidol Inj 5 MG/ML Ampul IM ONE (23:02)
--- NOTE | 2018-01-13 06:15 | ECG ---
Date Performed: 01/12/2018 Time Performed: 11:15:35 PTAGE: 47 years EKG: SINUS TACHYCARDIA INCOMPLETE RIGHT BUNDLE BRANCH BLOCK Nonspecific T wave changes ABNORMAL ECG Compared to prior electrocardiogram, Nonspecific T-wave changes are now present. PREVIOUS TRACING : 07/11/2016 05.39 DOCTOR: Pavel Salas Interpretating Date/Time 01/13/2018 06:14:30
--- NOTE | 2018-01-13 08:44 | ED ---
HPI - Psych - General Source: patient, EMS, old records reviewed Mode of arrival: EMS Limitations: altered mental status - History of Present Illness MD complaint: altered mental status Onset (ago): unknown Duration: constant History of same: Yes Relieving factors: none Exacerbating factors: other Context: other (Unknown) Associated psychiatric symptoms: depression, visual hallucinations Associated symptoms: confusion Treatments prior to arrival: placed on mental health hold If self harm: other (Denies) - General Chief Complaint: Altered Mental Status Stated Complaint: Poss AMS Time Seen by Provider: 01/13/18 08:16 - History of Present Illness HPI Narrative: History of Present Illness HPI narrative: 47-year-old,single, female, with record history of bipolar disorder, anxiety, possible benzodiazepene overuse, previous multidrug overdose,who presents to the ED via EMS for evaluation of altered mental status. Per EMS report the patient was found in a hotel room. Hotel staff called EMS after finding the patient confused in her hotel room. Upon arrival to the ED she was unable to provide any meaningful history. Patient is seen. EMR reviewed. Patient is currently diagnosed with a UTI. EMR reviewed. Patient was admitted medically in May 20 after a multidrug overdose after found unresponsive by her mother. Patient was evaluated in consult by Dr. Hernadez who found the patient to be altered and unable to provide much significant psychiatric history. Patient is alert, oriented to person, knows she is at [facility], tells me it is April 2011. She is unable to recall why she came to the hospital. She does tell me that she believes that she has a seizure and that she is also having hallucinations, she believes that people are after her to try to harm her. She also complains of feeling anxious and having panic attacks. She tells me that she does not remember what may have happened at the hotel room where she was staying and is unable to tell me the name of the hospital where she is living at. She also tells me that she does not know if she has been using alcohol or not at. In terms of psychiatric follow-up she says she sees Dr. Toussaint who prescribes her medication. I am unable to obtain any further clinical information from the patient. I have attempted to contact her mother at [phone] but was unable to reach her. (Danielle Dunbar) - Related Data Home Medications Medication Instructions Recorded Confirmed alprazolam 2 mg PO BID PRN 01/06/18 01/12/18 atenolol 50 mg PO DAILY 01/06/18 01/12/18 doxepin 100 mg PO BID 01/06/18 01/12/18 zolpidem 10 mg PO HS PRN 01/06/18 01/12/18 Previous Rx's Medication Instructions Recorded cephalexin [Keflex] 1 g PO BID 7 Days #28 cap 01/12/18 Allergies Allergy/AdvReac Type Severity Reaction Status Date / Time codeine Allergy Severe Anaphylaxis Verified 01/06/18 13:01 iodine Allergy Severe Anaphylaxis Verified 01/06/18 13:01 potassium iodide Allergy Severe Anaphylaxis Verified 01/06/18 13:01 povidone-iodine Allergy Severe Anaphylaxis Verified 01/06/18 13:01 quetiapine Allergy Severe Anaphylaxis Verified 01/06/18 13:01 sodium iodide Allergy Severe Anaphylaxis Verified 01/06/18 13:01 sodium iodide Allergy Severe Anaphylaxis Verified 01/06/18 13:01 tramadol Allergy Severe Anaphylaxis Verified 01/06/18 13:01 PMFSH - History History Provided By: Patient - Medical History Medical History: Medical History (Last Reviewed 01/06/18 @ 12:02 by Bee Burks MD) Anxiety Seizure - Social History I have reviewed the patient's Social History: Yes - Tobacco History Second Hand Smoke Exposure: No Tobacco Use In Past 30 Days: No Smoking Status: Current every day smoker Tobacco Type: Cigarettes - Alcohol History How Often Do You Have a Drink Containing Alcohol: Monthly or less - Substance Use History Substance History: Unable to Obtain - Substance Use Type Opiates Status: Active Methamphetamine Status: Active Crack/Cocaine Status: Active - Travel History Recent Travel in the [facility] Within the Last 8 Weeks: No Recent Travel Out of the Country Within the Last 8 Weeks: No - Immunization History Tetanus Immunization: Unsure Psychiatric History - Psychiatric History Psychiatric Treatment History: History of Psychiatric Treatment History of Inpatient Treatment: Yes Firearms in Home: No - Psychiatric History Patient is receiving psychiatric medication from Dr. Toussaint. Her record indicates that she has a history of bipolar disorder. (Danielle Dunbar) Physical Exam - General Limitations: no limitations Mental Status Examination Appearance: Disheveled Consciousness: Alert Orientation: Person, Place Motor Activity: Normal gait Speech: Hesitant, Slow Language: Adequate Fund of Knowledge: Inadequate Attention and Concentration: Inadequate Memory: Impaired Mood: Sad, Anxious Affect: Appropriate Thought Process & Associations: Circumstantial, Other Thought Content: Hallucinations, Delusional Hallucination Type: Visual Delusion Type: Paranoid Suicidal Ideation: Yes Suicidal Plan: No Suicidal Intention: No Homicidal Ideation: No Homicidal Plan: No Homicidal Intention: No Insight: Poor Judgment: Poor Initial Documented Vital Signs Temperature 99.8 F H 01/12/18 11:09 Pulse Rate 93 H 01/12/18 11:09 Respiratory Rate 18 01/12/18 11:09 Blood Pressure 144/95 H 01/12/18 11:09 Pulse Oximetry 98 01/12/18 11:09 Last Documented Vital Signs Temperature 98.6 F 01/13/18 12:37 Pulse Rate 106 H 01/13/18 12:37 Respiratory Rate 20 01/13/18 10:24 Blood Pressure 137/85 01/13/18 12:37 Pulse Oximetry 97 01/12/18 21:52 MDM - Psych - Diagnosis (1) Unspecified psychosis Status: Acute (2) Mood disorder Status: Acute - Lab Data Result diagrams: 01/12/18 11:35 01/12/18 11:35 - [facility] Narrative Medical decision making narrative: Case is consulted with Dr. Chang who recommends admission to [address] [place] [address] for further evaluation, stabilization and for safety. A [facility] protocol was ordered for the patient. We will order a hospitalist consult to follow medically. ( Danielle Dunbar) - Lab Data Lab Results 01/12/18 01/12/18 01/12/18 Range/Units 11:35 11:35 11:35 WBC 9.7 (4.0-11.0) th/mm3 RBC 4.32 (4.00-5.30) mil/mm3 Hgb 15.6 H (11.6-15.3) gm/dL Hct 43.9 (35.0-46.0) % MCV 101.6 H (80.0-100.0) fL MCH 36.2 H (27.0-34.0) pg MCHC 35.6 (32.0-36.0) % RDW 13.0 (11.6-17.2) % Plt Count 167 (150-450) th/mm3 MPV 10.1 (7.0-11.0) fL Neut % (Auto) 71.3 H (16.0-70.0) % Lymph % (Auto) 20.0 (9.0-44.0) % Levy % (Auto) 7.7 (0.0-8.0) % Eos % (Auto) 0.4 (0.0-4.0) % Baso % (Auto) 0.6 (0.0-2.0) % Neut # (Auto) 6.9 (1.8-7.7) th/mm3 Lymph # (Auto) 1.9 (1.0-4.8) th/mm3 Levy # (Auto) 0.7 (0.0-0.9) th/mm3 Eos # (Auto) 0.0 (0.0-0.4) th/mm3 Baso # (Auto) 0.1 (0.0-0.2) th/mm3 WBC Differential . Differential Comment Auto diff final PT 11.0 (9.8-11.6) sec INR 1.1 Ratio Sodium 144 (136-145) meq/L Potassium 3.2 L (3.5-5.1) meq/L Chloride 110 H (98-107) meq/L Carbon Dioxide 23.5 (21.0-32.0) meq/L Anion Gap 11 (5-15) meq/L BUN 15 (7-18) mg/dL Creatinine 1.03 H (0.50-1.00) mg/dL Estimated GFR 57 L (>89) mL/min Random Glucose 163 H (74-106) mg/dL Lactic Acid (0.4-2.0) mmol/L Calcium 8.9 (8.5-10.1) mg/dL Magnesium 1.9 (1.5-2.5) mg/dL Total Bilirubin 0.8 (0.2-1.0) mg/dL AST 52 H (15-37) U/L ALT 88 H (10-53) U/L Alkaline Phosphatase 73 (45-117) U/L Ammonia (11-32) mcmol/L Troponin I Less than 0.02 L (0.02-0.05) ng/mL Total Protein 8.3 H (6.4-8.2) g/dL Albumin 3.9 (3.4-5.0) g/dL Urine Color (Yellw/Straw) Urine Clarity (Clear) Urine pH (5.0-8.5) Ur Specific [place] (1.002-1.035) Urine Protein (Neg-Trace) mg/dL Urine Glucose (UA) (Negative) mg/dL Urine Ketones (Negative) mg/dL Urine Occult Blood (Negative) Urine Nitrate (Negative) Urine Bilirubin (Negative) Urine Urobilinogen (Less than 2) mg/dL Ur Leukocyte Esterase (Negative) Urine Bacteria (None) /hpf Urine Mucus (Occasional) /lpf Micro UA Comment Ur Microscopic Review Urine Culture Comments Salicylates (2.8-20.0) mg/dL Urine Opiates Screen (Neg) Acetaminophen (10.0-30.0) mcg/mL Ur Barbiturates Screen (Neg) Ur Amphetamines Screen (Neg) U Benzodiazepines Scrn (Neg) Urine Cocaine Screen (Neg) U Cannabinoids Screen (Neg) Serum Alcohol Less than 3 (0-5) mg/dL 01/12/18 01/12/18 01/12/18 Range/Units 11:35 11:35 11:35 WBC (4.0-11.0) th/mm3 RBC (4.00-5.30) mil/mm3 Hgb (11.6-15.3) gm/dL Hct (35.0-46.0) % MCV (80.0-100.0) fL MCH (27.0-34.0) pg MCHC (32.0-36.0) % RDW (11.6-17.2) % Plt Count (150-450) th/mm3 MPV (7.0-11.0) fL Neut % (Auto) (16.0-70.0) % Lymph % (Auto) (9.0-44.0) % Levy % (Auto) (0.0-8.0) % Eos % (Auto) (0.0-4.0) % Baso % (Auto) (0.0-2.0) % Neut # (Auto) (1.8-7.7) th/mm3 Lymph # (Auto) (1.0-4.8) th/mm3 Levy # (Auto) (0.0-0.9) th/mm3 Eos # (Auto) (0.0-0.4) th/mm3 Baso # (Auto) (0.0-0.2) th/mm3 WBC Differential Differential Comment PT (9.8-11.6) sec INR Ratio Sodium (136-145) meq/L Potassium (3.5-5.1) meq/L Chloride (98-107) meq/L Carbon Dioxide (21.0-32.0) meq/L Anion Gap (5-15) meq/L BUN (7-18) mg/dL Creatinine (0.50-1.00) mg/dL Estimated GFR (>89) mL/min Random Glucose (74-106) mg/dL Lactic Acid 2.1 H (0.4-2.0) mmol/L Calcium (8.5-10.1) mg/dL Magnesium (1.5-2.5) mg/dL Total Bilirubin (0.2-1.0) mg/dL AST (15-37) U/L ALT (10-53) U/L Alkaline Phosphatase (45-117) U/L Ammonia 21 (11-32) mcmol/L Troponin I (0.02-0.05) ng/mL Total Protein (6.4-8.2) g/dL Albumin (3.4-5.0) g/dL Urine Color (Yellw/Straw) Urine Clarity (Clear) Urine pH (5.0-8.5) Ur Specific [place] (1.002-1.035) Urine Protein (Neg-Trace) mg/dL Urine Glucose (UA) (Negative) mg/dL Urine Ketones (Negative) mg/dL Urine Occult Blood (Negative) Urine Nitrate (Negative) Urine Bilirubin (Negative) Urine Urobilinogen (Less than 2) mg/dL Ur Leukocyte Esterase (Negative) Urine Bacteria (None) /hpf Urine Mucus (Occasional) /lpf Micro UA Comment Ur Microscopic Review Urine Culture Comments Salicylates (2.8-20.0) mg/dL Urine Opiates Screen (Neg) Acetaminophen Less than 2.0 L (10.0-30.0) mcg/mL Ur Barbiturates Screen (Neg) Ur Amphetamines Screen (Neg) U Benzodiazepines Scrn (Neg) Urine Cocaine Screen (Neg) U Cannabinoids Screen (Neg) Serum Alcohol (0-5) mg/dL 01/12/18 01/12/18 01/12/18 Range/Units 11:35 15:00 15:00 WBC (4.0-11.0) th/mm3 RBC (4.00-5.30) mil/mm3 Hgb (11.6-15.3) gm/dL Hct (35.0-46.0) % MCV (80.0-100.0) fL MCH (27.0-34.0) pg MCHC (32.0-36.0) % RDW (11.6-17.2) % Plt Count (150-450) th/mm3 MPV (7.0-11.0) fL Neut % (Auto) (16.0-70.0) % Lymph % (Auto) (9.0-44.0) % Levy % (Auto) (0.0-8.0) % Eos % (Auto) (0.0-4.0) % Baso % (Auto) (0.0-2.0) % Neut # (Auto) (1.8-7.7) th/mm3 Lymph # (Auto) (1.0-4.8) th/mm3 Levy # (Auto) (0.0-0.9) th/mm3 Eos # (Auto) (0.0-0.4) th/mm3 Baso # (Auto) (0.0-0.2) th/mm3 WBC Differential Differential Comment PT (9.8-11.6) sec INR Ratio Sodium (136-145) meq/L Potassium (3.5-5.1) meq/L Chloride (98-107) meq/L Carbon Dioxide (21.0-32.0) meq/L Anion Gap (5-15) meq/L BUN (7-18) mg/dL Creatinine (0.50-1.00) mg/dL Estimated GFR (>89) mL/min Random Glucose (74-106) mg/dL Lactic Acid (0.4-2.0) mmol/L Calcium (8.5-10.1) mg/dL Magnesium (1.5-2.5) mg/dL Total Bilirubin (0.2-1.0) mg/dL AST (15-37) U/L ALT (10-53) U/L Alkaline Phosphatase (45-117) U/L Ammonia (11-32) mcmol/L Troponin I (0.02-0.05) ng/mL Total Protein (6.4-8.2) g/dL Albumin (3.4-5.0) g/dL Urine Color Yellow (Yellw/Straw) Urine Clarity Hazy H (Clear) Urine pH 5.0 (5.0-8.5) Ur Specific [place] 1.031 (1.002-1.035) Urine Protein 100 H (Neg-Trace) mg/dL Urine Glucose (UA) 150 H (Negative) mg/dL Urine Ketones Trace H (Negative) mg/dL Urine Occult Blood Negative (Negative) Urine Nitrate Negative (Negative) Urine Bilirubin Negative (Negative) Urine Urobilinogen 4 or greater (Less than 2) mg/dL Ur Leukocyte Esterase Negative (Negative) Urine Bacteria Moderate H (None) /hpf Urine Mucus Many H (Occasional) /lpf Micro UA Comment Culture indicated Ur Microscopic Review Not Reportable Urine Culture Comments Culture indicated Salicylates 3.9 (2.8-20.0) mg/dL Urine Opiates Screen Neg (Neg) Acetaminophen (10.0-30.0) mcg/mL Ur Barbiturates Screen Neg (Neg) Ur Amphetamines Screen Neg (Neg) U Benzodiazepines Scrn Pos H (Neg) Urine Cocaine Screen Neg (Neg) U Cannabinoids Screen Neg (Neg) Serum Alcohol (0-5) mg/dL
[2018-01-13] MEDS ORDERED: Aluminum/Magnesium/Simethacone Susp 30 ML UDC PO PRN (09:44)
[2018-01-13] MEDS ORDERED: Haloperidol Inj 5 MG/ML Ampul IV.PUSH PRN (09:48)
--- NOTE | 2018-01-13 14:03 | P.CON ---
History of Present Illness Service: [facility] Consult date: 01/13/18 Requesting Physician: Danielle Dunbar Reason for Consult: UTI, Seizure Primary Care Provider: No Primary Care Physician Chief Complaint: "I don't know" History of Present Illness: Patient is a 47-year-old female with past medical history of bipolar disorder, substance abuse, overdose, seizure from withdrawals who initially came in to the hospital for altered mental status. P review of record EMS reports that patient was found in a hotel where in hotel staff found her confused in her hotel room and disheveled. She is now admitted to medical psychiatry unit for further evaluation. Consulted for assistance with medical management. Patient seen and examined today. Very confused. States that she is taking Xanax, or Ativan at home but unable to remember anything. States that she does not know her birthday nor where she lives. States she has a mother but does not know where she is at or where she lives. States she is and had and wanting to ask if her know what is going on with her. Very poor historian, no meaningful history provided. Denies pain and discomfort. Denies SOB/ dyspnea. Denies chest pain, palpitations, headaches, dizziness. Denies fevers, chills, n/v/d. Denies dysuria. CT No evidence of acute intracranial process. EKG sinus tachycardia with incomplete right bundle branch block Chest x-ray negative exam UA positive for urinary tract infection, gram-negative rods Review of Systems unobtainable due to mental condition PMFSH - History History Provided By: Patient - Medical History Medical History: Medical History (Last Updated 01/13/18 @ 14:50 by VEDA Moe) Endometriosis Anxiety Seizure - Surgical History Surgical History: Surgical History (Last Updated 01/13/18 @ 14:49 by VEDA oMe) Hx of exploratory laparotomy - Family History Family History: Family History (Last Updated 01/13/18 @ 14:51 by VEDA Moe) Other Patient's mother is in good health - Social History I have reviewed the patient's Social History: Yes - Tobacco History Second Hand Smoke Exposure: No Tobacco Use In Past 30 Days: No Smoking Status: Current every day smoker Tobacco Type: Cigarettes - Alcohol History How Often Do You Have a Drink Containing Alcohol: Monthly or less - Substance Use History Substance History: Unable to Obtain - Substance Use Type Opiates Status: Active Methamphetamine Status: Active Crack/Cocaine Status: Active - Travel History Recent Travel in the [place] Within the Last 8 Weeks: No Recent Travel Out of the Country Within the Last 8 Weeks: No - Immunization History Tetanus Immunization: Unsure Medications and Allergies Active Medications: Active Medications Al Hydrox/Mg Hydrox/Simethicone (Mag-Al Plus Susp Liq) 30 ml PO Q6H PRN PRN Reason: DYSPEPSIA Al Hydroxide/Mg Hydroxide (Milk Of Magnesia Liq) 30 ml PO Q12H PRN PRN Reason: Mild Constipation Cephalexin Monohydrate (Keflex) 500 mg PO Q8HR FELIZ Stop: 01/20/18 13:59 Flumazenil (Romazecon Inj) 0.2 mg IV.PUSH Q1M PRN PRN Reason: OVERSEDATION Haloperidol Lactate (Haldol Inj) 1 mg IV.PUSH Q15M PRN PRN Reason: for severe agitation Sodium Chloride (Ns Inj) 1,000 mls @ 100 mls/hr IV.CONT .Q10H FELIZ Lorazepam (Ativan) 1 mg PO Q4H PRN PRN Reason: for CIWA 8-10 Lorazepam (Ativan Inj) 2 mg IV.PUSH Q2H PRN PRN Reason: for CIWA 11-14 Lorazepam (Ativan Inj) 2 mg IV.PUSH Q1H PRN PRN Reason: for CIWA 15-20 Lorazepam (Ativan Inj) 2 mg IV.PUSH Q15M PRN PRN Reason: for CIWA > 20 Lorazepam (Ativan Inj) 1 mg IV.PUSH Q4H PRN PRN Reason: for CIWA 8-10 Lorazepam (Ativan) 2 mg PO Q2H PRN PRN Reason: for CIWA 11-14 Last Admin: 01/13/18 13:17 Dose: 2 mg Sennosides (Senokot) 17.2 mg PO Q12H PRN PRN Reason: Moderate Constipation Sodium Chloride (Ns Flush) 2 ml IV.FLUSH PRN PRN PRN Reason: FLUSH AFTER USING IV ACCESS Allergies Allergy/AdvReac Type Severity Reaction Status Date / Time codeine Allergy Severe Anaphylaxis Verified 01/06/18 13:01 iodine Allergy Severe Anaphylaxis Verified 01/06/18 13:01 povidone-iodine Allergy Severe Anaphylaxis Verified 01/06/18 13:01 quetiapine Allergy Severe Anaphylaxis Verified 01/06/18 13:01 sodium iodide Allergy Severe Anaphylaxis Verified 01/06/18 13:01 sodium iodide Allergy Severe Anaphylaxis Verified 01/06/18 13:01 tramadol Allergy Severe Anaphylaxis Verified 01/06/18 13:01 Home Medications Medication Instructions Recorded Confirmed Type alprazolam 2 mg PO BID PRN 01/06/18 01/12/18 History atenolol 50 mg PO DAILY 01/06/18 01/12/18 History doxepin 100 mg PO BID 01/06/18 01/12/18 History zolpidem 10 mg PO HS PRN 01/06/18 01/12/18 History Physical Exam Vital signs: Vital Signs 01/12/18 17:10 01/12/18 17:45 01/12/18 18:23 Temperature 97.8 F 97.1 F L Pulse Rate 130 H 105 H Respiratory Rate 14 14 Blood Pressure 154/94 H 154/97 H Pulse Oximetry 97 97 98 01/12/18 20:28 01/12/18 21:52 01/13/18 10:24 Temperature 99.7 F H 98.3 F Pulse Rate 120 H 97 H 108 H Respiratory Rate 22 16 20 Blood Pressure 161/91 H 149/93 H 137/91 H Pulse Oximetry 97 97 01/13/18 12:37 Temperature 98.6 F Pulse Rate 106 H Respiratory Rate Blood Pressure 137/85 Pulse Oximetry Intake & Output 01/12/18 01/13/18 01/13/18 18:59 06:59 18:59 Intake Total 1100 / 1100 Balance 1100 / 1100 Weight 72.575 kg 68.2 kg Intake: IV 1100 / 1100 Rocephin Inj 1,000 MG In NS Inj 100 / 100 100 ML @ 200 mls/hr IV.SIG ONCE ONE Rx#:[id number] Other: Weight On Admission 68.2 kg Narrative: GENERAL: This is a well-developed patient, in no apparent distress. SKIN: Warm and dry. HEENT: Normocephalic. Pupils equal round and reactive. Nose without bleeding. Airway patent. NECK: Trachea midline. CARDIOVASCULAR: Tachycardia without murmurs, gallops, or rubs. RESPIRATORY: Clear to auscultation. Breath sounds equal bilaterally. No wheezes , rales, or rhonchi. GASTROINTESTINAL: Abdomen soft, non-tender, nondistended. Bowel Sounds normoactive x4. MUSCULOSKELETAL: Extremities without clubbing, cyanosis, or edema. NEUROLOGICAL: Awake and alert. Confuse. Moves all extremities. Normal speech. Results - Labs CBC & Chem 7: 01/12/18 11:35 01/12/18 11:35 Labs: Laboratory Results - last 24 hr 01/12/18 01/12/18 15:00 15:00 Urine Color Yellow Urine Clarity Hazy H Urine pH 5.0 Ur Specific [place] 1.031 Urine Protein 100 H Urine Glucose (UA) 150 H Urine Ketones Trace H Urine Occult Blood Negative Urine Nitrate Negative Urine Bilirubin Negative Urine Urobilinogen 4 or greater Ur Leukocyte Esterase Negative Urine Bacteria Moderate H Urine Mucus Many H Micro UA Comment Culture indicated Ur Microscopic Review Not Reportable Urine Culture Comments Culture indicated Urine Opiates Screen Neg Ur Barbiturates Screen Neg Ur Amphetamines Screen Neg U Benzodiazepines Scrn Pos H Urine Cocaine Screen Neg U Cannabinoids Screen Neg Assessment and Plan - Plan Patient is a 47-year-old female with past medical history of bipolar disorder, substance abuse, overdose, seizure from withdrawals who initially came in to the hospital for altered mental status. Psychosis, bipolar -Managed by psychiatry team Encephalopathy, possibly medication induced -U tox positive for benzo -Urinary tract infection may have contributed -Monitor for now Urinary tract infection, acute -Gram-negative rods, pending culture and sensitivity. -Keflex times 7 days -Follow-up cultures, will switch antibiotic if necessary. Tachycardia -Possibly secondary to anxiety -We will continue to monitor for now -Increase p.o. fluid intake. Check CK, CK-MB ? Seizure -Admitted previously with seizure but appears to be related to withdrawals from benzos. -U tox positive for benzo. Given Ativan in the ED and in the unit. -Seizure precaution -CT negative, chest x-ray negative Hypokalemia -Potassium supplement -Recheck potassium level Acute kidney injury -Avoid nephrotoxins. Encourage p.o. fluid intake -Monitor renal indicis DVT prop ambulatory Code Status: Full code Discussed Condition With: Patient, nursing Discharge Planning: DC disposition by primary team
[2018-01-13] MEDS: Sod Chloride 0.9% Inj 1,000 ML IV.CONT SCH ×2 (15:43→22:02)
[2018-01-13 17:01] LABS: Baso # (Auto) 0.1 th/mm3 (0.0-0.2); Baso % (Auto) 0.7 % (0.0-2.0); Eos # (Auto) 0.1 th/mm3 (0.0-0.4); Hematocrit 43.6 % (35.0-46.0); Hemoglobin 15.1 gm/dL (11.6-15.3); Lymph # (Auto) 2.8 th/mm3 (1.0-4.8); Mean Corpuscular HGB Conc 34.5 % (32.0-36.0); Mean Corpuscular Hemoglobin 35.6 pg (27.0-34.0); Mean Platelet Volume 10.1 fL (7.0-11.0); Mono # (Auto) 0.8 th/mm3 (0.0-0.9); Mono % (Auto) 6.8 % (0.0-8.0); Neut # (Auto) 7.5 th/mm3 (1.8-7.7); Neut % (Auto) 66.5 % (16.0-70.0); Platelet Count 160 th/mm3 (150-450); Red Blood Count 4.23 mil/mm3 (4.00-5.30); Red Cell Distribution Width 12.9 % (11.6-17.2); White Blood Count 11.3 th/mm3 (4.0-11.0)
[2018-01-13 17:34] LABS: Alanine Aminotransferase 84 U/L (10-53); Albumin 3.6 g/dL (3.4-5.0); Alkaline Phosphatase 71 U/L (45-117); Anion Gap 10 meq/L (5-15); Aspartate Aminotransferase 58 U/L (15-37); Blood Urea Nitrogen 16 mg/dL (7-18); Calcium 9.1 mg/dL (8.5-10.1); Carbon Dioxide 27.9 meq/L (21.0-32.0); Chloride 105 meq/L (98-107); Creatine Kinase 1285 U/L (26-192); Glomerular Filtration Rate 74 mL/min (>89); Glucose,Random 127 mg/dL (74-106); Sodium 143 meq/L (136-145); Total Protein 7.6 g/dL (6.4-8.2)
[2018-01-13 17:39] LABS: Potassium 2.9 meq/L (3.5-5.1)
[2018-01-13 17:58] LABS: CKMB Percent 0.6 % (0.0-4.0); Creatine Kinase MB 8.3 ng/mL (0.5-3.6)
[2018-01-13] MEDS ORDERED: Influenza (Quadrivalent) Vaccine 0.5 ML Syringe IM ONE (21:45)
[2018-01-13] MEDS: LORazepam 1 MG Tablet PO PRN (21:57)
[2018-01-14 08:24] LABS: Calcium 8.8 mg/dL (8.5-10.1); Carbon Dioxide 25.3 meq/L (21.0-32.0); Potassium 3.4 meq/L (3.5-5.1)
[2018-01-14 08:28] LABS: Chol/HDL Ratio 3.8 Ratio
[2018-01-14] MEDS: Sod Chloride 0.9% Inj 1,000 ML IV.CONT SCH ×2 (09:46→20:51)
--- NOTE | 2018-01-14 11:43 | P.PNIM ---
Subjective Interval history: Follow-up visit bipolar disorder, substance abuse, overdose, seizure from withdrawals, anxiety, hypokalemia, slightly elevated CK. Patient seen and examined today. Reports numbness and tingling in the lower extremity including cramping on the left foot. Discussed with patient results of labs. States she is hydrating better. Continues to be confused, poor historian. States her memory is still not there. Denies SOB/ dyspnea. Denies chest pain, palpitations, headaches, dizziness. Denies fevers, chills, n/v/d. Denies dysuria. Physical Exam Vital signs: Vital Signs 01/13/18 12:37 01/13/18 18:20 01/13/18 20:00 Temperature 98.6 F 97.6 F Pulse Rate 106 H 116 H Respiratory Rate 18 Blood Pressure 137/85 118/55 L Pulse Oximetry 96 96 01/14/18 06:00 Temperature 97.6 F Pulse Rate 95 H Respiratory Rate 18 Blood Pressure 124/73 Pulse Oximetry 99 Intake & Output 01/13/18 01/14/18 01/14/18 18:59 06:59 18:59 Intake Total 840 / 840 Balance 840 / 840 Weight 68.2 kg Intake: Oral 840 / 840 Other: # Voids 1 Weight On Admission 68.2 kg Narrative: GENERAL: This is a well-developed patient, in no apparent distress. SKIN: Warm and dry. HEENT: Normocephalic. Pupils equal round and reactive. Nose without bleeding. Airway patent. NECK: Trachea midline. CARDIOVASCULAR: Tachycardia without murmurs, gallops, or rubs. RESPIRATORY: Clear to auscultation. Breath sounds equal bilaterally. No wheezes , rales, or rhonchi. GASTROINTESTINAL: Abdomen soft, non-tender, nondistended. Bowel Sounds normoactive x4. MUSCULOSKELETAL: Extremities without clubbing, cyanosis, or edema. NEUROLOGICAL: Awake and alert. Confuse. Moves all extremities. Normal speech. Results - Labs CBC & Chem 7: 01/13/18 16:21 01/14/18 07:36 Laboratory Results - last 24 hr 01/13/18 01/13/18 01/14/18 16:21 16:21 07:36 WBC 11.3 H RBC 4.23 Hgb 15.1 Hct 43.6 MCV 103.0 H MCH 35.6 H MCHC 34.5 RDW 12.9 Plt Count 160 MPV 10.1 Neut % (Auto) 66.5 Lymph % (Auto) 25.0 [place] % (Auto) 6.8 Eos % (Auto) 1.0 Baso % (Auto) 0.7 Neut # (Auto) 7.5 Lymph # (Auto) 2.8 [place] # (Auto) 0.8 Eos # (Auto) 0.1 Baso # (Auto) 0.1 WBC Differential . Differential Comment Auto diff final Sodium 143 142 Potassium 2.9 L* 3.4 L Chloride 105 106 Carbon Dioxide 27.9 25.3 Anion Gap 10 11 BUN 16 16 Creatinine 0.82 0.81 Estimated GFR 74 L 75 L Random Glucose 127 H 113 H Calcium 9.1 8.8 Total Bilirubin 0.5 AST 58 H ALT 84 H Alkaline Phosphatase 71 Total Creatine Kinase 1285 H CK-MB (CK-2) 8.3 H CK-MB (CK-2) % 0.6 Total Protein 7.6 D Albumin 3.6 Triglycerides 140 Cholesterol 179 LDL Cholesterol, Calc 104 H HDL Cholesterol 47.0 Cholesterol/HDL Ratio 3.80 Microbiology 01/12/18 11:40 Blood - Line Aerobic Blood Culture - Preliminary No growth in 2 days 01/12/18 11:40 Blood - Line Anaerobic Blood Culture - Preliminary No growth in 2 days 01/12/18 11:35 Blood - Line Aerobic Blood Culture - Preliminary No growth in 2 days 01/12/18 11:35 Blood - Line Anaerobic Blood Culture - Preliminary No growth in 2 days 01/12/18 15:00 Clean Catch Urine Urine Culture - Final Citrobacter farmeri Assessment and Plan - Plan Patient is a 47-year-old female with past medical history of bipolar disorder, substance abuse, overdose, seizure from withdrawals who initially came in to the hospital for altered mental status. Psychosis, bipolar Anxiety -Managed by psychiatry team Encephalopathy, possibly medication induced -U tox positive for benzo -Urinary tract infection may have contributed -Monitor for now -[facility] Prescription Drug Monitoring Database has been quer[facility] and [facility]. Patient is taking atenolol 50 mg daily , doxepin 50 mg 2 caps twice daily, Xanax 2 mg, Ambien Urinary tract infection, acute -Gram-negative rods, pending culture and sensitivity. -Keflex times 7 days -Follow-up cultures, will switch antibiotic if necessary. Tachycardia -Possibly secondary to anxiety -Increase p.o. fluid intake. Elevated CK, CK-MB -IV fluids 100 mL's overnight. Recheck CK tomorrow -Medications have been verified through [facility]. Patient taking atenolol 50 mg daily ? Seizure -Admitted previously with seizure but appears to be related to withdrawals from benzos. -U tox positive for benzo. Given Ativan in the ED and in the unit. -Seizure precaution -CT negative, chest x-ray negative Hypokalemia -Potassium supplement, check mag -Recheck potassium level Acute kidney injury -Avoid nephrotoxins. Encourage p.o. fluid intake -Monitor renal indicis DVT prop ambulatory Code Status: Full code Discussed Condition With: Patient, nursing Discharge Planning: DC disposition by primary team
[2018-01-14 11:54] LABS: Hemoglobin A1c 5.7 % (4.3-6.0)
[2018-01-14] MEDS: LORazepam 1 MG Tablet PO PRN (12:18)
--- NOTE | 2018-01-14 13:04 | P.HPPSY ---
Provisional Diagnosis Admission Date: January 13, 2018 09:43 Competence Certification of Person's Competence To Provide Express and Informed Consent I have personally examined Elizabeth Kenny, a person being served at [facility] on, January 14, 2018 8629. Express and informed consent means consent voluntarily given in writing, by a competent person, after sufficient explanation and disclosure of the subject matter involved to enable the person to make a knowing and willful decision without any element of force, fraud, deceit, duress, or other form of constraint or coercion. This person is 18 years of age or older, is not now known to be incompetent to consent to treatment with a guardian advocate, and does not have a health care surrogate or proxy currently making medical treatment decisions. I have found this person to be one of the following: [X] Competent to provide express and informed consent, as defined above, for voluntary admission to this facility and is competent to provide express and informed consent for treatment. He/she has the consistent capacity to make well reasoned, willful, and knowing decisions concerning his or her medical or mental health treatment. The person fully and consistently understands the purpose of the admission for examination/placement and is fully capable of personally exercising all rights assured under [place] Incompetent to provide express and informed consent to voluntary admission, and this is incompetent to provide express and informed consent to treatment. The person must be transferred to involuntary status and a petition for a guardian advocate filed with the Circuit Court. [] Refusing to provide express and informed consent to voluntary admission but is competent to provide express and informed consent for treatment. The person must be discharged or transferred to involuntary status. Form shall be completed within 24 hours of a person's arrival at the receiving facility and filed in the clinical record of each person: 1. Admitted on a voluntary basis 2. Permitted to provide express and informed consent to his/her own treatment 3. Allowed to transfer from involuntary to voluntary status 4. Prior to permitting a person to consent to his or her own treatment after having been previously found incompetent to consent to treatment. History of Present Illness Capacity: Has capacity Chief Complaint: see below History of Present Illness: Patient is a 47-year-old female with a history of bipolar disorder and possible substance abuse. Patient is admitted for altered mental status after she was found unresponsive in the hotel room that she lives at. She is on high doses of opiates and Xanax she says are prescribed to her. She is on Xanax 2 mg p.o. 4 times daily. She cannot remember her dose of opiates. Throughout the interview patient is complaining of "memory problems." She minimizes her substance use and there is suspicion she may have had an overdose or is abusing her prescriptions. There are no recent signs of solomon. Patient denies depressive symptoms. Today, patient denies suicidal or homicidal ideation intent or plan. HPI narrative: 47-year-old,single, female, with record history of bipolar disorder, anxiety, possible benzodiazepene overuse, previous multidrug overdose,who presents to the ED via EMS for evaluation of altered mental status. Per EMS report the patient was found in a hotel room. Hotel staff called EMS after finding the patient confused in her hotel room. Upon arrival to the ED she was unable to provide any meaningful history. Patient is seen. EMR reviewed. Patient is currently diagnosed with a UTI. EMR reviewed. Patient was admitted medically in May 20 after a multidrug overdose after found unresponsive by her mother. Patient was evaluated in consult by Dr. Hernadez who found the patient to be altered and unable to provide much significant psychiatric history. Past psych: Multiple inpatient admissions Past medical: Endometriosis Past Social: Patient says she is but her is in [place]. Minimizes her substance use - Inpatient Certification I certify that the inpatient services were ordered in accordance with Medicare regulations governing the order. This includes certification that hospital inpatient services are reasonable and necessary and in the case of services not specified as inpatient-only under 42 CFR 419.22(n), that they are appropriately provided as inpatient services in accordance to with the 2-midnight benchmark under 43 CFR 412.3(e) I certify that inpatient psychiatric hospital services are medically necessary. Evaluation and treatment and/or diagnostic testing are expected to improve the patient's condition. The patient needs on a daily basis, active treatment furnished directly by or requiring the supervision of inpatient psychiatric facility personnel. Estimated Total Length of Stay (Days): 8 Plans for Post Hospital Care: Not yet determined PMFSH - History History Provided By: Patient - Medical History Medical History: Medical History (Last Reviewed 01/14/18 @ 13:02 by Dionicio Rey DO) Endometriosis Anxiety Seizure - Surgical History Surgical History: Surgical History (Last Reviewed 01/14/18 @ 13:02 by Dionicio Rey DO) Hx of exploratory laparotomy - Family History Family History: Family History (Last Updated 01/13/18 @ 14:51 by VEDA Moe) Other Patient's mother is in good health - Tobacco History Second Hand Smoke Exposure: No Tobacco Use In Past 30 Days: No Smoking Status: Current every day smoker Tobacco Type: Cigarettes - Alcohol History How Often Do You Have a Drink Containing Alcohol: Monthly or less - Substance Use History Substance History: Unable to Obtain - Substance Use Type Opiates Status: Active Methamphetamine Status: Active Crack/Cocaine Status: Active Marijuana Status: Active Route Used: Inhalation Reason for Use: Get High Comment: Patient denied any isues with ETOH, synthetics or stimulants. She stated she had substance issues years ago at" one time in my young days but now , I'm old'. She states she has been perscribed benzodiazapines and opiates for anxiety and pain - Travel History Recent Travel in the [facility] Within the Last 8 Weeks: No Recent Travel Out of the Country Within the Last 8 Weeks: No - Immunization History Tetanus Immunization: <5 Years Hx Influenza Vaccine This Season: No Medications and Allergies Active Medications: Active Medications Al Hydrox/Mg Hydrox/Simethicone (Mag-Al Plus Susp Liq) 30 ml PO Q6H PRN PRN Reason: DYSPEPSIA Al Hydroxide/Mg Hydroxide (Milk Of Magnesia Liq) 30 ml PO Q12H PRN PRN Reason: Mild Constipation Cephalexin Monohydrate (Keflex) 500 mg PO Q8HR [facility] Stop: 01/20/18 13:59 Last Admin: 01/14/18 05:57 Dose: 500 mg Flumazenil (Romazecon Inj) 0.2 mg IV.PUSH Q1M PRN PRN Reason: OVERSEDATION Haloperidol Lactate (Haldol Inj) 1 mg IV.PUSH Q15M PRN PRN Reason: for severe agitation Sodium Chloride (Ns Inj) 1,000 mls @ 100 mls/hr IV.CONT .Q10H [facility] Last Admin: 01/14/18 09:46 Dose: Not Given Lorazepam (Ativan) 1 mg PO Q4H PRN PRN Reason: for CIWA 8-10 Last Admin: 01/14/18 12:18 Dose: 1 mg Lorazepam (Ativan Inj) 2 mg IV.PUSH Q2H PRN PRN Reason: for CIWA 11-14 Lorazepam (Ativan Inj) 2 mg IV.PUSH Q1H PRN PRN Reason: for CIWA 15-20 Lorazepam (Ativan Inj) 2 mg IV.PUSH Q15M PRN PRN Reason: for CIWA > 20 Lorazepam (Ativan Inj) 1 mg IV.PUSH Q4H PRN PRN Reason: for CIWA 8-10 Lorazepam (Ativan) 2 mg PO Q2H PRN PRN Reason: for CIWA 11-14 Last Admin: 01/13/18 13:17 Dose: 2 mg Magnesium Oxide (Mag-Ox) 400 mg PO ONCE ONE Stop: 01/14/18 12:57 Potassium Chloride (K-Dur) 10 meq PO DAILY [facility] Sennosides (Senokot) 17.2 mg PO Q12H PRN PRN Reason: Moderate Constipation Sodium Chloride (Ns Flush) 2 ml IV.FLUSH PRN PRN PRN Reason: FLUSH AFTER USING IV ACCESS Allergies Allergy/AdvReac Type Severity Reaction Status Date / Time codeine Allergy Severe Anaphylaxis Verified 01/06/18 13:01 iodine Allergy Severe Anaphylaxis Verified 01/06/18 13:01 povidone-iodine Allergy Severe Anaphylaxis Verified 01/06/18 13:01 quetiapine Allergy Severe Anaphylaxis Verified 01/06/18 13:01 sodium iodide Allergy Severe Anaphylaxis Verified 01/06/18 13:01 sodium iodide Allergy Severe Anaphylaxis Verified 01/06/18 13:01 tramadol Allergy Severe Anaphylaxis Verified 01/06/18 13:01 Home Medications Medication Instructions Recorded Confirmed Type alprazolam 2 mg PO BID PRN 01/06/18 01/12/18 History atenolol 50 mg PO DAILY 01/06/18 01/12/18 History doxepin 100 mg PO BID 01/06/18 01/12/18 History zolpidem 10 mg PO HS PRN 01/06/18 01/12/18 History Results - Labs CBC & Chem 7: 01/13/18 16:21 01/14/18 07:36 Labs: Laboratory Results - last 24 hr 01/13/18 01/13/18 01/14/18 16:21 16:21 07:36 WBC 11.3 H RBC 4.23 Hgb 15.1 Hct 43.6 MCV 103.0 H MCH 35.6 H MCHC 34.5 RDW 12.9 Plt Count 160 MPV 10.1 Neut % (Auto) 66.5 Lymph % (Auto) 25.0 [facility] % (Auto) 6.8 Eos % (Auto) 1.0 Baso % (Auto) 0.7 Neut # (Auto) 7.5 Lymph # (Auto) 2.8 [facility] # (Auto) 0.8 Eos # (Auto) 0.1 Baso # (Auto) 0.1 WBC Differential . Differential Comment Auto diff final Sodium 143 142 Potassium 2.9 L* 3.4 L Chloride 105 106 Carbon Dioxide 27.9 25.3 Anion Gap 10 11 BUN 16 16 Creatinine 0.82 0.81 Estimated GFR 74 L 75 L Random Glucose 127 H 113 H Hemoglobin A1c Calcium 9.1 8.8 Total Bilirubin 0.5 AST 58 H ALT 84 H Alkaline Phosphatase 71 Total Creatine Kinase 1285 H CK-MB (CK-2) 8.3 H CK-MB (CK-2) % 0.6 Total Protein 7.6 D Albumin 3.6 Triglycerides 140 Cholesterol 179 LDL Cholesterol, Calc 104 H HDL Cholesterol 47.0 Cholesterol/HDL Ratio 3.80 01/14/18 07:36 WBC RBC Hgb Hct MCV MCH MCHC RDW Plt Count MPV Neut % (Auto) Lymph % (Auto) [facility] % (Auto) Eos % (Auto) Baso % (Auto) Neut # (Auto) Lymph # (Auto) [facility] # (Auto) Eos # (Auto) Baso # (Auto) WBC Differential Differential Comment Sodium Potassium Chloride Carbon Dioxide Anion Gap BUN Creatinine Estimated GFR Random Glucose Hemoglobin A1c 5.7 Calcium Total Bilirubin AST ALT Alkaline Phosphatase Total Creatine Kinase CK-MB (CK-2) CK-MB (CK-2) % Total Protein Albumin Triglycerides Cholesterol LDL Cholesterol, Calc HDL Cholesterol Cholesterol/HDL Ratio Exam Vital signs: Vital Signs 01/13/18 18:20 01/13/18 20:00 01/14/18 06:00 Temperature 97.6 F 97.6 F Pulse Rate 116 H 95 H Respiratory Rate 18 18 Blood Pressure 118/55 L 124/73 Pulse Oximetry 96 96 99 Intake & Output 01/13/18 01/14/18 01/14/18 18:59 06:59 18:59 Intake Total 840 / 840 Balance 840 / 840 Weight 68.2 kg Intake: Oral 840 / 840 Other: # Voids 1 Weight On Admission 68.2 kg Mental Status Examination Appearance: Disheveled Consciousness: Alert Orientation: Person, Place, Date/Time Motor Activity: Normal gait Speech: Hesitant, Slow Language: Adequate Fund of Knowledge: Inadequate Attention and Concentration: Inadequate Memory: Impaired Mood: Appropriate Affect: Appropriate Thought Process & Associations: Circumstantial, Tangential, Other Thought Content: Hallucinations, Delusional Hallucination Type: Visual Delusion Type: Paranoid Suicidal Ideation: No Suicidal Plan: No Suicidal Intention: No Homicidal Ideation: No Homicidal Plan: No Homicidal Intention: No Insight: Poor Judgment: Poor Assessment and Plan - Assessment (1) Unspecified psychosis Code(s): F29 - Unspecified psychosis not due to a substance or known physiological condition Status: Acute (2) Mood disorder Code(s): F39 - Unspecified mood [affective] disorder Status: Acute - Plan Plan: Estimated LOS: [] days Patient may sign voluntary. Continue CIWA protocol. We will continue to monitor her mental status and no further medications recommended at this time Justification for Continued Inpatient Stay: Patient would decompensate in a less restrictive setting
[2018-01-14] MEDS ORDERED: Magnesium Oxide 400 MG Tablet PO ONE (13:15)
[2018-01-14] MEDS: Atenolol 50 MG Tablet PO SCH (15:09)
[2018-01-14] MEDS: Ibuprofen 600 MG Tablet PO SCH (17:20)
[2018-01-15] MEDS: Ibuprofen 600 MG Tablet PO SCH ×4 (00:48→23:40)
[2018-01-15] MEDS: Sod Chloride 0.9% Inj 1,000 ML IV.CONT SCH (06:42)
[2018-01-15] MEDS: Atenolol 50 MG Tablet PO SCH (08:58)
[2018-01-15 10:30] LABS: Calcium 9.2 mg/dL (8.5-10.1); Carbon Dioxide 23.5 meq/L (21.0-32.0)
--- NOTE | 2018-01-15 10:35 | P.PNIM ---
Subjective Interval history: Follow-up visit bipolar disorder, substance abuse, overdose, seizure from withdrawals, anxiety, hypokalemia, slightly elevated CK. Patient seen and examined today. States she is hydrating well. States she is doing a lot better and her memory is getting clearer. Has been calling her mother. Denies SOB/ dyspnea. Denies chest pain, palpitations, headaches, dizziness. Denies fevers, chills, n/v/d. Denies dysuria. Physical Exam Vital signs: Vital Signs 01/14/18 18:09 01/15/18 06:00 Temperature 98.2 F 98.7 F Pulse Rate 78 78 Respiratory Rate 16 17 Blood Pressure 108/78 143/87 H Pulse Oximetry 97 96 Intake & Output 01/14/18 01/15/18 01/15/18 18:59 06:59 18:59 Intake Total 1340 / 1340 Balance 1340 / 1340 Intake: IV 1000 / 1000 NS Inj 1,000 ML @ 100 mls/hr IV 1000 / 1000 .CONT .Q10H [facility] Rx#:[id number] Oral 240 / 240 Oral Supplement 100 / 100 Other: # Voids 3 Narrative: GENERAL: This is a well-developed patient, in no apparent distress. SKIN: Warm and dry. HEENT: Normocephalic. Pupils equal round and reactive. Nose without bleeding. Airway patent. NECK: Trachea midline. CARDIOVASCULAR: Tachycardia without murmurs, gallops, or rubs. RESPIRATORY: Clear to auscultation. Breath sounds equal bilaterally. No wheezes , rales, or rhonchi. GASTROINTESTINAL: Abdomen soft, non-tender, nondistended. Bowel Sounds normoactive x4. MUSCULOSKELETAL: Extremities without clubbing, cyanosis, or edema. NEUROLOGICAL: Awake and alert. Oriented to place, person moves all extremities. Normal speech. Results - Labs CBC & Chem 7: 01/13/18 16:21 01/15/18 09:41 Laboratory Results - last 24 hr 01/14/18 01/14/18 01/15/18 07:36 07:36 09:41 Sodium 141 Potassium 4.0 Chloride 108 H Carbon Dioxide 23.5 Anion Gap 10 BUN 10 Creatinine 0.79 Estimated GFR 78 L Random Glucose 120 H Hemoglobin A1c 5.7 Calcium 9.2 Magnesium 1.6 Total Creatine Kinase 620 H Microbiology 01/12/18 11:35 Blood - Line Aerobic Blood Culture - Preliminary pleomorphic gram positive rods 01/12/18 11:35 Blood - Line Anaerobic Blood Culture - Preliminary No growth in 2 days 01/12/18 11:40 Blood - Line Aerobic Blood Culture - Preliminary No growth in 2 days 01/12/18 11:40 Blood - Line Anaerobic Blood Culture - Preliminary No growth in 2 days 01/12/18 15:00 Clean Catch Urine Urine Culture - Final Citrobacter farmeri Assessment and Plan - Plan Patient is a 47-year-old female with past medical history of bipolar disorder, substance abuse, overdose, seizure from withdrawals who initially came in to the hospital for altered mental status. Psychosis, bipolar Anxiety -Managed by psychiatry team Encephalopathy, possibly medication induced -U tox positive for benzo -Urinary tract infection may have contributed -Monitor for now -[facility] Prescription Drug Monitoring Database has been queried and verified. [facility] pharmacy verified. Patient is taking atenolol 50 mg daily , doxepin 50 mg 2 caps twice daily, Xanax 2 mg, Ambien Urinary tract infection, acute -Citrobacter, pansensitive -Keflex times 7 days, continued from ED -BC possible contaminant in 1 bottle. Mild rhabdomyolysis Tachycardia -Medications have been verified through [facility]. Patient taking atenolol 50 mg daily -Increase p.o. fluid intake. -IV fluids for hydration -Improved CK. Will DC IV fluids. ? Seizure -Admitted previously with seizure but appears to be related to withdrawals from benzos. -U tox positive for benzo. Given Ativan in the ED and in the unit. -Seizure precaution -CT negative, chest x-ray negative Hypokalemia -Potassium supplement, check mag -Recheck potassium level wnl -Resolved Acute kidney injury -Avoid nephrotoxins. Encourage p.o. fluid intake -Improved DVT prop ambulatory Code Status: Full code Discussed Condition With: Patient, nursing Discharge Planning: DC disposition by primary team
[2018-01-15 10:50] LABS: CKMB Percent 0.7 % (0.0-4.0); Creatine Kinase MB 4.1 ng/mL (0.5-3.6)
--- NOTE | 2018-01-15 16:56 | P.PNPSY ---
Subjective Chief Complaint: see below Remarks: Patient is a 39-year-old woman domiciled in a hotel room, unemployed, with a past psychiatric history of anxiety, depression and PTSD, benzodiazepine use disorder who was admitted due to altered mental status which patient was found in a hotel by hotel staff confused which patient was admitted to the inpatient psychiatry for further evaluation and management. Patient was found sitting hospital chair noted B, cooperative. Patient noted to have difficulty with recall of events prior to her admission as well as difficulty recalling her past psychiatric treatment. Patient states that she remembers hallucinating and "my heart going crazy" and being in the hospital thereafter. She states that she remembers her apartment was "everything is messed up". Patient mentions that her is living in [place] with the children for over a year now and has been staying at a hotel room. She states that this experience has happened before where she was hallucinating and that the landlord on this admission thought she was acting different and called EMS. She states feeling confused at that time and continues with confusion now trying to recall events. She mentions she was on Xanax for many years and " came off of it 2-3 days ago". Prior to her admission and also recalls having likely having run out of her Ambien in the evening as well states that she has been receiving this medication for panic attacks and anxiety in the past. She states she has been using following with Dr. Oquendo but had retired as well as recalling previous mental health services at [facility] in the past. Currently she states feeling "anxious" stating that she has been on previous medication trials to address her anxiety including Valium, Xanax, Ativan, Klonopin, doxepin, Librium, Seroquel. She reports feeling depressed at this time, reports having had suicide ideations recently, "but I would never do it". She states that she has had 2 previous suicide attempts in the past when asked about suicide ideations contributing to her recent state of confusion she states "it was what led him here, I think I could have" referring to possibly overdosing. Patient continues to have contradictory statements during interview at times and is unreliable historian. Review of Systems All other systems reviewed negative except as stated in HPI Mental Status Examination Appearance: Appropriate Consciousness: Alert Orientation: Person, Place, Date/Time Motor Activity: Normal gait Speech: Hesitant, Slow Language: Adequate Fund of Knowledge: Inadequate Attention and Concentration: Inadequate Memory: Impaired, Remote (intact) Mood: Anxious Affect: Anxious Thought Process & Associations: Circumstantial, Tangential, Other Thought Content: Hallucinations, Delusional Hallucination Type: Visual (Denies at this time) Delusion Type: Paranoid Suicidal Ideation: No Suicidal Plan: No Suicidal Intention: No Homicidal Ideation: No Homicidal Plan: No Homicidal Intention: No Insight: Poor Judgment: Poor Assessment and Plan - Assessment (1) Unspecified psychosis Code(s): F29 - Unspecified psychosis not due to a substance or known physiological condition Status: Acute (2) Mood disorder Code(s): F39 - Unspecified mood [affective] disorder Status: Acute - Plan Plan: Patient continues to have difficulty with recall of events prior to her admission, likely with benzodiazepine abuse/misuse which may have contributed to her recent symptomatology and continues to have active withdrawal symptoms at this time. We will continue [facility] protocol for withdrawal, withdrawal precautions. We will start patient on sertraline 50 mg p.o. daily for depression, start gabapentin 100 mg p.o. 3 times daily for anxiety. We will continue hospitalist recommendations, input appreciated. Collateral admission pending from patient's mother. We will continue to monitor mood and behavior. Discharge planning in progress. Justification for Continued Inpatient Stay: At risk of further decompensation at lower level care.
[2018-01-15] MEDS: LORazepam 1 MG Tablet PO PRN (21:22)
[2018-01-16] MEDS: Ibuprofen 600 MG Tablet PO SCH ×4 (06:42→18:35)
[2018-01-16] MEDS: Atenolol 50 MG Tablet PO SCH (09:28)
[2018-01-16] MEDS: Sertraline 50 MG Tablet PO SCH (09:28)
[2018-01-16] MEDS: Gabapentin 100 MG Capsule PO SCH ×4 (09:28→18:35)
--- NOTE | 2018-01-16 11:19 | P.PNIM ---
Subjective Interval history: Follow-up visit bipolar disorder, substance abuse, overdose, seizure from withdrawals, anxiety, hypokalemia, slightly elevated CK. Patient seen and examined today. States she doing a lot better. Denies SOB/ dyspnea. Denies chest pain, palpitations, headaches, dizziness. Denies fevers, chills, n/v/d. Denies dysuria. Physical Exam Vital signs: Vital Signs 01/15/18 18:00 01/15/18 19:00 01/16/18 06:00 Temperature 97.7 F 98.1 F 98.6 F Pulse Rate 78 97 H 80 Respiratory Rate 17 18 16 Blood Pressure 112/63 120/55 L 121/58 L Pulse Oximetry 97 95 96 Intake & Output 01/15/18 01/16/18 01/16/18 18:59 06:59 18:59 Intake Total 960 / 960 340 / 340 Balance 960 / 960 340 / 340 Intake: Oral 960 / 960 240 / 240 Oral Supplement 100 / 100 Other: # Voids 2 Narrative: GENERAL: This is a well-developed patient, in no apparent distress. SKIN: Warm and dry. HEENT: Normocephalic. Pupils equal round and reactive. Nose without bleeding. Airway patent. NECK: Trachea midline. CARDIOVASCULAR: Tachycardia without murmurs, gallops, or rubs. RESPIRATORY: Clear to auscultation. Breath sounds equal bilaterally. No wheezes , rales, or rhonchi. GASTROINTESTINAL: Abdomen soft, non-tender, nondistended. Bowel Sounds normoactive x4. MUSCULOSKELETAL: Extremities without clubbing, cyanosis, or edema. NEUROLOGICAL: Awake and alert. Oriented to place, person. Moves all extremities. Normal speech. Results - Labs CBC & Chem 7: 01/13/18 16:21 01/15/18 09:41 Microbiology 01/12/18 11:40 Blood - Line Aerobic Blood Culture - Preliminary No growth in 4 days 01/12/18 11:40 Blood - Line Anaerobic Blood Culture - Preliminary No growth in 4 days 01/12/18 11:35 Blood - Line Aerobic Blood Culture - Preliminary pleomorphic gram positive rods 01/12/18 11:35 Blood - Line Anaerobic Blood Culture - Preliminary No growth in 4 days Assessment and Plan - Plan Patient is a 47-year-old female with past medical history of bipolar disorder, substance abuse, overdose, seizure from withdrawals who initially came in to the hospital for altered mental status. Psychosis, bipolar Anxiety -Managed by psychiatry team Encephalopathy, possibly medication induced -U tox positive for benzo -Urinary tract infection may have contributed -Monitor for now -[facility] Prescription Drug Monitoring Database has been queried and verified. [facility] verified. Patient is taking atenolol 50 mg daily , doxepin 50 mg 2 caps twice daily, Xanax 2 mg, Ambien Urinary tract infection, acute -Citrobacter, pansensitive -Keflex times 7 days, continued from ED - possible contaminant in 1 bottle. Mild rhabdomyolysis Tachycardia -Medications have been verified through [facility]. Patient taking atenolol 50 mg daily, restarted -Increase p.o. fluid intake. -IV fluids for hydration -Improved CK. DC IV fluids. ? Seizure -Admitted previously with seizure but appears to be related to withdrawals from benzos. -U tox positive for benzo. Given Ativan in the ED and in the unit. -Seizure precaution -CT negative, chest x-ray negative Hypokalemia -Potassium supplement, check mag -Recheck potassium level wnl -Resolved Acute kidney injury -Avoid nephrotoxins. Encourage p.o. fluid intake -Improved DVT prop ambulatory Stable from Hospitalist standpoint. We will sign off. Reconsult as needed. Thank you. Code Status: Full code Discussed Condition With: Patient, nursing Discharge Planning: DC disposition by primary team
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
--- NOTE | 2018-01-16 15:54 | P.PNPSY ---
Subjective Chief Complaint: see below Remarks: Patient seen for follow-up, chart reviewed. Discussion with nursing staff reported that patient no behavioral disturbances compliant with medications. Patient was found sitting hospital chair noted B, cooperative. Patient states she is pretty stressed over the past year after her left but denying suicide ideations today. Patient continues report feeling confused and unable to recall events of the past year but did recall feeling depressed for the past couple days prior to her admission noted be tearful during interview. She states that she was having suicidal ideation today they found her in the hotel was unsure whether she had attempted to end her life. She states "I think I had a nervous breakdown after he left" referring to her . She also mentions that her mom had come to visit her less evening which she states she is able to stay with her upon discharge for support. She states that she cannot remember where she lived how her hotel room look like. She states that she was hallucinating "here and there" with streaks of colors recently on this admission but denying at the time of interview. Review of Systems All other systems reviewed negative except as stated in HPI Mental Status Examination Appearance: Appropriate Consciousness: Alert Orientation: Person, Place, Date/Time Motor Activity: Normal gait Speech: Hesitant, Slow Language: Adequate Fund of Knowledge: Inadequate Attention and Concentration: Inadequate Memory: Impaired, Remote (intact) Mood: Anxious Affect: Appropriate Thought Process & Associations: Intact, Linear Thought Content: Hallucinations (Occasional), Delusional Hallucination Type: Visual Delusion Type: Bizarre Suicidal Ideation: No Suicidal Plan: No Suicidal Intention: No Homicidal Ideation: No Homicidal Plan: No Homicidal Intention: No Insight: Fair Judgment: Impulsive Assessment and Plan - Assessment (1) Unspecified psychosis Code(s): F29 - Unspecified psychosis not due to a substance or known physiological condition Status: Acute (2) Mood disorder Code(s): F39 - Unspecified mood [affective] disorder Status: Acute - Plan Plan: Patient this time continues with confusion and occasional visual hallucinations and continues to score on CIWA requiring Ativan dosing. Patient also continues report feeling depressed and endorsed recent suicide ideations prior to her admission. We will continue current treatment. Continue monitor mood and behavior. We will order repeat stat EKG as patient reported to the nurse having some chest pain later in the afternoon. Discharge planning in progress. Justification for Continued Inpatient Stay: At risk of further decompensation at lower level care.
[2018-01-16] MEDS: LORazepam 1 MG Tablet PO PRN (20:37)
[2018-01-17] MEDS: Ibuprofen 600 MG Tablet PO SCH ×4 (00:31→20:38)
[2018-01-17] MEDS: Sertraline 50 MG Tablet PO SCH (08:10)
[2018-01-17] MEDS: Atenolol 50 MG Tablet PO SCH (08:11)
[2018-01-17] MEDS: LORazepam 1 MG Tablet PO PRN ×2 (08:11→20:37)
[2018-01-17] MEDS: Gabapentin 100 MG Capsule PO SCH ×3 (08:11→18:00)
--- NOTE | 2018-01-17 10:36 | P.PNPSY ---
Subjective Chief Complaint: see below Remarks: Patient seen for follow-up, chart reviewed. Discussion with nursing staff reported that patient patient requiring Ativan this morning as per CIWA protocol. Patient was found sitting in hospital bed noted B, cooperative. Patient states she was feeling anxious this morning and recalls feeling anxious yesterday afternoon which she was describing symptoms of anxiety. Patient reports having felt depressed this morning because of the anxiety but stated feeling much better after she got her medications. Psychoeducation over risks involving benzodiazepine use was reviewed with patient which she acknowledged. Patient reports having slept well last evening. Patient spoke with his sister and mother yesterday and states that her sister is currently in the emergency room due to a kidney stone. She denies any perceptional services denies any suicide ideations at this time. Patient reports tolerating medications well but continues to have difficulty recalling events prior to her admission. Review of Systems All other systems reviewed negative except as stated in HPI Mental Status Examination Appearance: Appropriate Consciousness: Alert Orientation: Person, Place, Date/Time Motor Activity: Normal gait Speech: Hesitant, Slow Language: Adequate Fund of Knowledge: Inadequate Attention and Concentration: Inadequate Memory: Impaired, Remote (intact) Mood: Anxious Affect: Appropriate Thought Process & Associations: Intact, Linear Thought Content: Delusional Hallucination Type: None Delusion Type: Bizarre Suicidal Ideation: No Suicidal Plan: No Suicidal Intention: No Homicidal Ideation: No Homicidal Plan: No Homicidal Intention: No Insight: Fair Judgment: Impulsive Assessment and Plan - Assessment (1) Unspecified psychosis Code(s): F29 - Unspecified psychosis not due to a substance or known physiological condition Status: Acute (2) Mood disorder Code(s): F39 - Unspecified mood [affective] disorder Status: Acute - Plan Plan: Patient this time continues to have decrease in CIWA scoring but continues to require Ativan on occasion but noted to be recovering from withdrawal at this time. We will decrease gabapentin to 200 mg p.o. 3 times daily for anxiety. Continue rest of medications. We will order repeat labs to monitor CK level, LFTs and WBC count. Continue to monitor mood and behavior. Discharge planning in progress. Justification for Continued Inpatient Stay: At risk of further decompensation at lower level care.
--- NOTE | 2018-01-17 12:05 | P.TTN ---
- Patient Problems Problems: 1. Discharge planning 2. Medication compliance 3. Knowledge deficit 4. Lack of coping skills - Progress Toward Goals Provider Present: Dr. Judy Medeiros Provider Input: 01/15/18: New admission; pt presents as confused, AMS, anxiety, bipolar disorder, sees Dr. Toussaint for out-pt psych. Ligia to f/u with pt's mother per baseline, d/c planning. Psychiatric Counselors Present: Ligia Mora [facility] Psychiatric Therapist Input: Ligia to follow-up with pt's mother for collateral information. Group Spec/RT/OT/OROZCO Present: Tanner Duarte OT Group Spec/RT/OT/OROZCO Input: 01/15/18: Pt refuses to attend groups. - Discharge Plan 01/15/18: Ligia to f/u with pt's mother per baseline, d/c planning. - Documentation Teaching Recipient: Patient
--- NOTE | 2018-01-17 12:37 | ECG ---
Date Performed: 01/16/2018 Time Performed: 15:48:41 PTAGE: 47 years EKG: Sinus rhythm NORMAL ECG PREVIOUS TRACING : 01/12/2018 11.15 DOCTOR: Tj Kwok Interpretating Date/Time 01/17/2018 12:35:07
--- NOTE | 2018-01-17 15:26 | P.TTN ---
- Patient Problems Problems: 1. Discharge planning 2. Medication compliance 3. Knowledge deficit 4. Lack of coping skills - Progress Toward Goals Provider Present: Dr. Judy Medeiros Provider Input: 01/17/2018; per doctor no med change at this time; patient is being monitor medically. 01/15/18: New admission; pt presents as confused, AMS , anxiety, bipolar disorder, sees Dr. Toussaint for out-pt psych. Ligia to f/u with pt's mother per baseline, d/c planning. Nurse(s) Present: RN Nurse Input: ; Patient is eating and taking meds; required redirection and coaching with her behavior. Psychiatric Counselors Present: Ligia Mora [facility] Psychiatric Therapist Input: 01/17/2018; counselor sarahw suresh Merchant, patient 's mother who reports patient is unable to live in her home when dc; However patient's sister Karla has agreed to allow patient to live with her for a couple weeks prior to returning home. Ligia to follow-up with pt's mother for collateral information. Group Spec/RT/OT/OROZCO Present: Tanenr Duarte OT Group Spec/RT/OT/OROZCO Input: 01/17/2018: patient continues to refuse to attend groups. 01/15/18: Pt refuses to attend groups. - Discharge Plan 01/15/18: Ligia to f/u with pt's mother per baseline, d/c planning. - Documentation Teaching Recipient: Patient
[2018-01-17 16:38] LABS: Baso # (Auto) 0.1 th/mm3 (0.0-0.2); Baso % (Auto) 0.8 % (0.0-2.0); Eos # (Auto) 0.1 th/mm3 (0.0-0.4); Hemoglobin 14.4 gm/dL (11.6-15.3); Lymph # (Auto) 2.8 th/mm3 (1.0-4.8); Lymph % (Auto) 20.5 % (9.0-44.0); Mean Corpuscular HGB Conc 34.4 % (32.0-36.0); Mean Corpuscular Hemoglobin 35.2 pg (27.0-34.0); Mean Corpuscular Volume 102.6 fL (80.0-100.0); Mean Platelet Volume 10.5 fL (7.0-11.0); Mono # (Auto) 1.3 th/mm3 (0.0-0.9); Mono % (Auto) 9.3 % (0.0-8.0); Neut # (Auto) 9.3 th/mm3 (1.8-7.7); Neut % (Auto) 68.4 % (16.0-70.0); Platelet Count 156 th/mm3 (150-450); Red Blood Count 4.09 mil/mm3 (4.00-5.30); Red Cell Distribution Width 12.8 % (11.6-17.2); White Blood Count 13.6 th/mm3 (4.0-11.0)
[2018-01-17 17:02] LABS: Alanine Aminotransferase 57 U/L (10-53); Albumin 3.6 g/dL (3.4-5.0); Anion Gap 7 meq/L (5-15); Aspartate Aminotransferase 32 U/L (15-37); Blood Urea Nitrogen 16 mg/dL (7-18); Calcium 9.2 mg/dL (8.5-10.1); Carbon Dioxide 26.9 meq/L (21.0-32.0); Chloride 105 meq/L (98-107); Glomerular Filtration Rate 84 mL/min (>89); Glucose,Random 102 mg/dL (74-106); Sodium 139 meq/L (136-145)
[2018-01-17 17:04] LABS: Alkaline Phosphatase 64 U/L (45-117); Creatine Kinase 145 U/L (26-192); Total Protein 7.8 g/dL (6.4-8.2)
[2018-01-17 17:33] LABS: Creatine Kinase MB 2.2 ng/mL (0.5-3.6)
[2018-01-18] MEDS: Ibuprofen 600 MG Tablet PO SCH ×5 (00:08→23:30)
[2018-01-18] MEDS: Gabapentin 100 MG Capsule PO SCH ×3 (08:59→17:04)
[2018-01-18] MEDS: Atenolol 50 MG Tablet PO SCH (08:59)
[2018-01-18] MEDS: Sertraline 50 MG Tablet PO SCH ×2 (08:59→09:04)
--- NOTE | 2018-01-18 17:48 | P.DSPSY ---
Psychiatry Discharge Summary Inpatient Psychiatric care?: Yes Advance Directives: No Mental Health Advance Directive: No Health Care Proxy: No - Admission Admission Date: January 13, 2018 09:43 - Admission Diagnosis (1) Unspecified psychosis Code(s): F29 - Unspecified psychosis not due to a substance or known physiological condition (2) Mood disorder Code(s): F39 - Unspecified mood [affective] disorder Brief History: Patient is a 47-year-old female with a history of bipolar disorder and possible substance abuse. Patient is admitted for altered mental status after she was found unresponsive in the hotel room that she lives at. She is on high doses of opiates and Xanax she says are prescribed to her. She is on Xanax 2 mg p.o. 4 times daily. She cannot remember her dose of opiates. Throughout the interview patient is complaining of "memory problems." She minimizes her substance use and there is suspicion she may have had an overdose or is abusing her prescriptions. There are no recent signs of solomon. Patient denies depressive symptoms. Today, patient denies suicidal or homicidal ideation intent or plan. HPI narrative: 47-year-old,single, female, with record history of bipolar disorder, anxiety, possible benzodiazepene overuse, previous multidrug overdose,who presents to the ED via EMS for evaluation of altered mental status. Per EMS report the patient was found in a hotel room. Hotel staff called EMS after finding the patient confused in her hotel room. Upon arrival to the ED she was unable to provide any meaningful history. Patient is seen. EMR reviewed. Patient is currently diagnosed with a UTI. EMR reviewed. Patient was admitted medically in May 20 after a multidrug overdose after found unresponsive by her mother. Patient was evaluated in consult by Dr. Hernadez who found the patient to be altered and unable to provide much significant psychiatric history. Past psych: Multiple inpatient admissions Past medical: Endometriosis Past Social: Patient says she is but her is in [place]. Minimizes her substance use Tobacco Use In Past 30 Days: No How Often Do You Have a Drink Containing Alcohol: Monthly or less Hospital Course: Patient is a 39-year-old woman domiciled in a hotel room, unemployed, with a past psychiatric history of anxiety, depression and PTSD, benzodiazepine use disorder who was admitted due to altered mental status which patient was found in a hotel by hotel staff confused which patient was admitted to the inpatient psychiatry for further evaluation and management. Patient was admitted to a locked, inpatient psychiatric unit. Appropriate precautions were in place throughout patient's hospital stay. Patient was seen and examined on the unit by psychiatry. Psychotropic medications were adjusted. There was no evidence of any suicidality or homicidality on the inpatient unit. Patient's confusion and mood improved with the benefit of psychopharmacological treatment and had no behavioral disturbance since admission. Patient was noted to have reached stable mood, noted to participate and engage in treatment and interact with staff adequately. Patient noted to be future oriented with plans to continue treatment and outpatient follow-up appointments for continuity of care. Counselor has arranged discharge plan which patient will return home with the plan of patient's sister to move into patient's residence for support along with patient's mother to check in with patient. On the day of discharge: Patient seen and examined; chart reviewed. Case discussed with nurse and counselor. No behavioral issues overnight. On my examination today, the patient denies any suicidal homicidal ideation, intent or plan on direct questioning and contracts for safety. Patient denies any perceptional disturbances and no delusional material verbalized today. Patient denies any side effects from medication and has understanding of medication regimen and education. No physical complaints. Suicide and violence risk assessment on day of discharge both suggest lower imminent risk, and the patient's level of function is adequate for plan level of outpatient care. Patient has maximized benefit from this inpatient psychiatric hospital stay and will be discharged with discharge plan as arranged by counselor. Patient advised to return to psychiatric emergency room for any concerning psychiatric symptoms. Patient agrees with plan. - Discharge Discharge Date: 01/18/18 - Discharge Diagnosis (1) Unspecified psychosis Code(s): F29 - Unspecified psychosis not due to a substance or known physiological condition Status: Acute (2) Mood disorder Code(s): F39 - Unspecified mood [affective] disorder Status: Acute Discharge Disposition: Home - Discharge Instructions Discharge Diet: Heart Healthy Diet Activities You Can Perform: Weight Bearing As Tolerat - Discharge Time > 30 minutes Mental Status Examination Appearance: Appropriate Consciousness: Alert Orientation: Person, Place, Date/Time Motor Activity: Normal gait Speech: Unremarkable Language: Adequate Fund of Knowledge: Inadequate Attention and Concentration: Inadequate Memory: Impaired, Remote (intact) Mood: Appropriate Affect: Appropriate Thought Process & Associations: Intact, Goal directed, Linear Thought Content: Appropriate Hallucination Type: None Delusion Type: None, Bizarre Suicidal Ideation: No Suicidal Plan: No Suicidal Intention: No Homicidal Ideation: No Homicidal Plan: No Homicidal Intention: No Insight: Fair Judgment: Impulsive Discharge/Advance Care Plan - Results Vital Signs: Last Vital Signs Temp 97.9 F 01/18/18 17:39 Pulse 71 01/18/18 17:39 Resp 16 01/18/18 17:39 BP 112/76 01/18/18 17:39 Pulse Ox 96 01/18/18 17:39 Lab Results: Laboratory Results Hemoglobin A1c 5.7 % (4.3-6.0) 01/14/18 07:36 Triglycerides 140 mg/dL (42-150) 01/14/18 07:36 Cholesterol 179 mg/dL (120-200) 01/14/18 07:36 LDL Cholesterol, Calc 104 mg/dL (0-99) H 01/14/18 07:36 HDL Cholesterol 47.0 mg/dL (40.0-60.0) 01/14/18 07:36 Urine Culture Comments Culture indicated 01/12/18 15:00 Summary of Procedures: none Imaging: ITS Impressions Chest X-Ray 01/12/18 11:31 CONCLUSION: Negative examination. Head CT 01/12/18 11:31 CONCLUSION: No evidence of acute intracranial process. . Pending Results: None - Medications Number of antipsychotic medications at discharge: 0 - Discharge Care Plan Goals to Promote Your Health: * To prevent worsening of your condition and complications * To maintain your health at the optimal level Directions to Meet Your Goals: Take your medications as prescribed Follow your dietary instruction Follow activity as directed Keep your appointments as scheduled Take your immunizations and boosters as scheduled If your symptoms worsen call your PCP, if no PCP go to Urgent Care Center or Emergency Room For 26/09 questions related to your inpatient stay or results of tests pending at discharge, please contact Dr. Lazarus Medeiros MD at Smoking is Dangerous to Your Health. Avoid second hand smoking
[2018-01-19] MEDS: Ibuprofen 600 MG Tablet PO SCH ×2 (05:35→12:12)
[2018-01-19 07:09] VITALS: O2SAT 95
[2018-01-19] MEDS: Sertraline 50 MG Tablet PO SCH (08:06)
[2018-01-19] MEDS: Atenolol 50 MG Tablet PO SCH (08:06)
[2018-01-19] MEDS: Gabapentin 100 MG Capsule PO SCH ×2 (08:06→12:05)
[2018-01-19 11:46] VITALS: BP 99/80; PULSE 76; RESP 18; TEMP 98
--- NOTE | 2018-01-19 15:03 | P.PNPSY ---
Subjective Chief Complaint: see below Remarks: Patient seen for follow-up, chart reviewed. Discussion with nursing staff reported the patient had difficulty with transportation yesterday as planned for discharge yesterday but had to remain till today as her mother was unable to come pick her up. No behavioral disturbances overnight. Patient continues with stable mood continue with plan of discharge back to her residence. Denies any SI, HI, AVH or delusions. Patient will be discharged with assistance for transportation to her appointment at [facility] and subsequent transportation back to her home. Review of Systems All other systems reviewed negative except as stated in HPI Mental Status Examination Appearance: Appropriate Consciousness: Alert Orientation: Person, Place, Date/Time Motor Activity: Normal gait Speech: Unremarkable Language: Adequate Fund of Knowledge: Inadequate Attention and Concentration: Inadequate Memory: Impaired, Remote (intact) Mood: Appropriate Affect: Appropriate Thought Process & Associations: Intact, Goal directed, Linear Thought Content: Appropriate Hallucination Type: None Delusion Type: None Suicidal Ideation: No Suicidal Plan: No Suicidal Intention: No Homicidal Ideation: No Homicidal Plan: No Homicidal Intention: No Insight: Fair Judgment: Impulsive Assessment and Plan - Assessment (1) Unspecified psychosis Code(s): F29 - Unspecified psychosis not due to a substance or known physiological condition Status: Acute (2) Mood disorder Code(s): F39 - Unspecified mood [affective] disorder Status: Acute - Plan Plan: Patient will be discharged with assistance for transport to her outpatient mental health appointment at [facility] today and will have transportation back to her residence thereafter. Justification for Continued Inpatient Stay: Patient discharged today
== END 2018-01-19 12:50 | disposition home or self-care (01) ==
LOC: NEPC 11:03 → NEDA 01-13 09:43 → H4EA 01-13 12:55
PROVIDERS: ADMIT Student in an Organized Health Care Education/Training Program; ATTEND Student in an Organized Health Care Education/Training Program